=== PATIENT | male | born 1980 | race Caucasian/White ===

== ENCOUNTER 2017-09-17 09:24 | Emergency (ER) | payer OTHER ==
[2017-09-17] MEDS ORDERED: LEVALBUTEROL 1.25 MG/3 ML NEB ONE (10:13)
[2017-09-17] MEDS ORDERED: METHYLPREDNISOLONE 125 MG INJ ONE (10:13)
[2017-09-17 10:31] LABS: Absolute Lymphocytes (CBC) 1.2 K/uL (0.7-4.9); Absolute Monocytes 0.7 K/uL (0.1-1.3); Absolute Neutrophil 6.7 K/uL (1.8-8.0); Basophils % 0.8 % (0-1.3); Eosinophils % 12.4 % (0-4.4); Hematocrit 42.9 % (39.6-49.0); Lymphocytes % 11.8 % (15.3-44.8); MCH 29.3 pg (27.0-35.0); MCV 87.4 fL (80-100); MPV 8.6 fL (7.6-11.3); Monocytes % 7.4 % (3.3-12.3); RBC Red Blood Cell Count 4.91 M/uL (4.33-5.43)
[2017-09-17 10:44] LABS: BUN Blood Urea Nitrogen 12 mg/dL (7-18); Bicarbonate 25 mmol/L (21-32); Glucose Level 78 mg/dL (74-106); Potassium 3.8 mmol/L (3.5-5.1); Sodium Level 140 mmol/L (136-145)
[2017-09-17 11:12] LABS: Urine Blood NEGATIVE (NEG); Urine Glucose NEGATIVE (NEG); Urine Protein NEGATIVE (NEG); Urine Specific Gravity 1.015 (1.005-1.030); Urine pH 6.5 (5.0-7.0)
--- NOTE | 2017-09-17 11:52 | RAD REPORT ---
EXAM DESCRIPTION: RAD - Chest Single View - 09/17/2017 10:13 am CLINICAL HISTORY: Cough COMPARISON: August 28 TECHNIQUE: AP portable chest image was obtained 1010 hours . FINDINGS: No mass, consolidation or acute failure. Interstitial markings are prominent but improved from the comparison. Hilar regions and vasculature is stable. Heart and vasculature are normal. No me asurable pleural effusion and no pneumothorax. No gross bony abnormality seen. No acute aortic findin gs suspected. IMPRESSION: No acute cardiopulmonary process. Lung markings have decreased in prominence since August 28.
--- NOTE | 2017-09-17 12:07 | ER ---
Nurse's Notes [facility] Name: Qamar Mayorga Age: 37 yrs Sex: Male : 1980 Arrival Date: 09/17/2017 Time: 09:26 Bed 7 Private MD: Diagnosis: Asthma Presentation: 09/17 09:35 Presenting complaint: Patient states: fatigue and constipation since yesterday. Pt ss reports last BM was yesterday and was, "soupy". Transition of care: patient was not received from another setting of care. Onset of symptoms was September 16, 2017. Risk Assessment: Do you want to hurt yourself or someone else? Patient reports no desire to harm self or others. Initial Sepsis Screen: Does the patient meet any 2 criteria? No. Patient's initial sepsis screen is negative. Does the patient have a suspected source of infection? No. Patient's initial sepsis screen is negative. Care prior to arrival: None. 09:35 Method Of Arrival: Ambulatory ss 09:35 Acuity: JAMSHID 3 ss Stroke Activation: Symptom onset > 6 hours Physician: Stroke Attending; Name: ; Notified At: ; Arrived At: Physician: Chief Stroke Resident; Name: ; Notified At: ; Arrived At: Physician: Stroke Resident; Name: ; Notified At: ; Arrived At: Physician: ED Attending; Name: ; Notified At: ; Arrived At: Physician: ED Resident; Name: ; Notified At: ; Arrived At: Historical: - Allergies: 09:36 Dilantin; ss - PMHx: 09:36 Asthma; hyperthyroidism; seasonal allergies; Pneumonia; ss - Immunization history:: Adult Immunizations up to date. - Social history:: Smoking status: Patient/guardian denies using tobacco. - Ebola Screening: : Patient denies exposure to infectious person Patient denies travel to an Ebola-affected area in the 21 days before illness onset. Screenin:50 Abuse screen: Denies threats or abuse. Denies injuries from another. Nutritional jl7 screening: No deficits noted. Tuberculosis screening: No symptoms or risk factors identified. Fall Risk IV access (20 points). Total Mcgee Fall Scale indicates No Risk (0-24 pts). Assessment: 09:50 General: Appears in no apparent distress. uncomfortable, Behavior is calm, cooperative, jl7 appropriate for age. Pain: Denies pain. Neuro: Level of Consciousness is awake, alert, obeys commands, Oriented to person, place, time. Cardiovascular: Heart tones present Patient's skin is warm and dry. Respiratory: Airway is patent Respiratory effort is even, unlabored, Respiratory pattern is regular, symmetrical, Breath sounds with rhonchi bilaterally. Breath sounds with wheezes bilaterally. GI: No signs and/or symptoms were reported involving the gastrointestinal system. : No signs and/or symptoms were reported regarding the genitourinary system. EENT: No signs and/or symptoms were reported regarding the EENT system. Derm: Skin is pink, warm \\T\\ dry. Musculoskeletal: No signs and/or symptoms reported regarding the musculoskeletal system. 10:50 Reassessment: No changes from previously documented assessment. Patient and/or family jl7 updated on plan of care and expected duration. Pain level reassessed. Patient is alert, oriented x 3, equal unlabored respirations, skin warm/dry/pink. 11:47 Reassessment: Patient and/or family updated on plan of care and expected duration. Pain jl7 level reassessed. Patient is alert, oriented x 3, equal unlabored respirations, skin warm/dry/pink. Vital Signs: 09:36 BP 139 / 89; Pulse 68; Resp 16; Temp 98.7(TE); Pulse Ox 95% on R/A; Weight 83.01 kg; ss Height 5 ft. 9 in. (175.26 cm); Pain 0/10; 10:06 BP 125 / 85; Pulse 64; Resp 16; Temp 99.2(O); Pulse Ox 98% on R/A; jl7 11:00 BP 124 / 72; Pulse 65; Resp 16 S; Pulse Ox 100% on R/A; jl7 11:47 BP 122 / 73; Pulse 62; Resp 16; Temp 98.5(O); Pulse Ox 100% on R/A; jl7 09:36 Body Mass Index 27.02 (83.01 kg, 175.26 cm) ED Course: 09:26 Patient arrived in ED. as 09:36 Triage completed. ss 09:37 Arm band placed on right wrist. ss 09:43 Franck Gruber MD is Attending Physician. kdr 09:45 Shawnee John RN is Primary Nurse. ph 09:50 Patient has correct armband on for positive identification. Placed in gown. Bed in low jl7 position. Call light in reach. Side rails up X 1. surgery tech on. Pulse ox on. NIBP on. Warm blanket given. 09:55 Missed attempt(s): 20 gauge in right forearm. Bleeding controlled, band aid applied, jl7 catheter tip intact. 10:00 Inserted saline lock: 20 gauge in left forearm, using aseptic technique. Blood jl7 collected. 10:00 Initial lab(s) drawn, by ma, sent to lab. jl7 10:06 Parker Holman, RN is Primary Nurse. jl7 10:13 CXR XRAY In Process Unspecified. EDMS 12:34 No provider procedures requiring assistance completed. IV discontinued, intact, ss bleeding controlled, No redness/swelling at site. Pressure dressing applied. Administered Medications: 10:15 Drug: Xopenex (3) 1.25 mg Route: Inhalation; jl7 10:45 Follow up: Response: No adverse reaction jl7 10:15 Drug: SOLU-Medrol 125 mg Route: IVP; Site: left forearm; jl7 10:45 Follow up: Response: No adverse reaction; Marked relief of symptoms jl7 Outcome: 12:06 Discharge ordered by . kdr 12:34 Discharged to home ambulatory. ss 12:34 Condition: improved 12:34 Discharge instructions given to patient, Instructed on discharge instructions, follow up and referral plans. medication usage, Demonstrated understanding of instructions, follow-up care, medications. 12:35 Patient left the ED. ss Signatures: Dispatcher [employer] EDID Franck Gruber MD MD kdr Martinez, Amelia as Smirch, Shelby, PJ RN Shawnee John RN RN Parker Holman, PJ RN jl7
--- NOTE | 2017-09-17 12:07 | EDPHYS ---
Physician Documentation [facility] Name: Qamar Mayorga Age: 37 yrs Sex: Male : 1980 Arrival Date: 09/17/2017 Time: 09:26 Bed 7 Private MD: ED Physician Franck Gruber HPI: 09/17 10:29 This 37 yrs old Male presents to ER via Ambulatory with complaints of kdr Weakness, Doesn't Feel Right. 10:29 The patient has not felt well since yesterday and this morning when he awoke, he flet kdr generally weak. He had loose stool yesterday but today feels constipated. He has not been using his nebulizer on a regular basis - the last time was a few days ago. Denies any other focal c/o in the ED at this time. No apparent acute illness or injury. VS are noted be normal.. Onset: The symptoms/episode began/occurred gradually, yesterday. Severity of symptoms: At their worst the symptoms were mild in the emergency department the symptoms are unchanged. The patient has experienced similar episodes in the past, multiple times. The patient has not recently seen a physician. Historical: - Allergies: 09:36 Dilantin; ss - PMHx: 09:36 Asthma; hyperthyroidism; seasonal allergies; Pneumonia; ss - Immunization history:: Adult Immunizations up to date. - Social history:: Smoking status: Patient/guardian denies using tobacco. - Ebola Screening: : Patient denies exposure to infectious person Patient denies travel to an Ebola-affected area in the 21 days before illness onset. ROS: 10:29 Constitutional: Negative for fever, chills, and weight loss, Eyes: Negative for injury, kdr pain, redness, and discharge, ENT: Negative for injury, pain, and discharge, Neck: Negative for injury, pain, and swelling, Cardiovascular: Negative for chest pain, palpitations, and edema, Abdomen/GI: Negative for abdominal pain, nausea, vomiting, diarrhea, and constipation, Back: Negative for injury and pain, : Negative for injury, bleeding, discharge, and swelling, MS/Extremity: Negative for injury and deformity, Skin: Negative for injury, rash, and discoloration, Neuro: Negative for headache, weakness, numbness, tingling, and seizure activity. 10:29 Respiratory: Positive for shortness of breath, wheezing, inspiratory, expiratory. Exam: 10:29 Constitutional: This is a well developed, well nourished patient who is awake, alert, kdr and in no acute distress. Head/Face: Normocephalic, atraumatic. Eyes: Pupils equal round and reactive to light, extra-ocular motions intact. Lids and lashes normal. Conjunctiva and sclera are non-icteric and not injected. Cornea within normal limits. Periorbital areas with no swelling, redness, or edema. Neck: Trachea midline, no thyromegaly or masses palpated, and no cervical lymphadenopathy. Supple, full range of motion without nuchal rigidity, or vertebral point tenderness. No Meningismus. Chest/axilla: Normal chest wall appearance and motion. Nontender with no deformity. No lesions are appreciated. Cardiovascular: Regular rate and rhythm with a normal S1 and S2. No gallops, murmurs, or rubs. Normal PMI, no JVD. No pulse deficits. Abdomen/GI: Soft, non-tender, with normal bowel sounds. No distension or tympany. No guarding or rebound. No evidence of tenderness throughout. Back: No spinal tenderness. No costovertebral tenderness. Full range of motion. Skin: Warm, dry with normal turgor. Normal color with no rashes, no lesions, and no evidence of cellulitis. MS/ Extremity: Pulses equal, no cyanosis. Neurovascular intact. Full, normal range of motion. Neuro: Awake and alert, GCS 15, oriented to person, place, time, and situation. Cranial nerves II-XII grossly intact. Motor strength 5/5 in all extremities. Sensory grossly intact. Cerebellar exam normal. Normal gait. Psych: Awake, alert, with orientation to person, place and time. Behavior, mood, and affect are within normal limits. 10:29 Respiratory: the patient does not display signs of respiratory distress, Respirations: normal, Breath sounds: rales, bronchial sounds, wheezing: that is mild, that is moderate, is heard diffusely, is heard in the left posterior upper lobe, right posterior upper lobe, left posterior lower lobe, right posterior middle lobe and right posterior lower lobe. Vital Signs: 09:36 BP 139 / 89; Pulse 68; Resp 16; Temp 98.7(TE); Pulse Ox 95% on R/A; Weight 83.01 kg; ss Height 5 ft. 9 in. (175.26 cm); Pain 0/10; 10:06 BP 125 / 85; Pulse 64; Resp 16; Temp 99.2(O); Pulse Ox 98% on R/A; jl7 11:00 BP 124 / 72; Pulse 65; Resp 16 S; Pulse Ox 100% on R/A; jl7 11:47 BP 122 / 73; Pulse 62; Resp 16; Temp 98.5(O); Pulse Ox 100% on R/A; jl7 09:36 Body Mass Index 27.02 (83.01 kg, 175.26 cm) ss MDM: 12:06 Patient medically screened. kdr 13:50 Data reviewed: vital signs, nurses notes. kdr 09/17 09:49 Order name: CBC with Diff; Complete Time: 11:07 kdr 09/17 09:49 Order name: Chem 7; Complete Time: 11:07 kdr 09/17 09:49 Order name: Blood Culture Adult (2) kdr 09/17 09:49 Order name: CXR XRAY; Complete Time: 12:05 kdr 09/17 11:06 Order name: Urine Dipstick--Ancillary (enter results) eb 09/17 11:07 Order name: Urine Dipstick-Ancillary; Complete Time: 11:30 EDMS 09/17 09:49 Order name: Urine Dipstick-Ancillary (obtain specimen); Complete Time: 12:00 kdr Administered Medications: 10:15 Drug: Xopenex (3) 1.25 mg Route: Inhalation; 7 10:45 Follow up: Response: No adverse reaction jl7 10:15 Drug: SOLU-Medrol 125 mg Route: IVP; Site: left forearm; jl7 10:45 Follow up: Response: No adverse reaction; Marked relief of symptoms jl7 Disposition: 09/17/17 12:06 Discharged to Home. Impression: Asthma. - Condition is Stable. - Discharge Instructions: Asthma, Adult, Mped-py-Ckue, Asthma Attack Prevention, Adult. - Prescriptions for Xopenex 1.25 mg/3 mL Inhalation Solution for Nebulization - inhale 1 unit by NEBULIZATION route every 8 hours As needed; 1 box. Medrol (Cristino) 4 mg Oral Tablets, Dose Pack - take 1 tablet by ORAL route as directed - follow package instructions; 1 packet. Cipro 500 mg Oral Tablet - take 1 tablet by ORAL route every 12 hours for 10 days; 20 tablet. - Medication Reconciliation Form, Thank You Letter, Antibiotic Education form. - Follow up: Private Physician; When: 2 - 3 days; Reason: If symptoms return, Further diagnostic work-up, Recheck today's complaints, Continuance of care, Re-evaluation by your physician. - Problem is new. - Symptoms have improved. Signatures: Dispatcher [employer] EDND Franck Gruber MD MD kdr Deloris Almaguer RN RN ss Parker Holman RN RN jl7 Corrections: (The following items were deleted from the chart) 12:35 12:06 09/17/2017 12:06 Discharged to Home. Impression: Asthma. Condition is Stable. ss Forms are Medication Reconciliation Form, Thank You Letter, Antibiotic Education, Prescription Opioid Use. Follow up: Private Physician; When: 2 - 3 days; Reason: If symptoms return, Further diagnostic work-up, Recheck today's complaints, Continuance of care, Re-evaluation by your physician. Problem is new. Symptoms have improved. kdr
[2017-09-17 12:50] VITALS: O2SAT 100
[2017-09-17 12:52] VITALS: BP 122/73; TEMP 98.5
== END 2017-09-17 12:35 | disposition home or self-care (01) ==
LOC: ER 09:24
DX: J45.909 Unspecified asthma, uncomplicated (principal); E03.9 Hypothyroidism, unspecified; Z88.8 Allergy status to other drugs, medicaments and biological substances
CPT/HCPCS: 36415; 71045; 80048; 81003; 85025; 87040; 96374; 99285; J2930

== ENCOUNTER 2017-10-24 03:01 | Emergency (ER) | payer OTHER ==
[2017-10-24] MEDS ORDERED: ALBUTEROL 2.5 MG/3 ML NEB SOL ONE (03:36)
[2017-10-24] MEDS ORDERED: METHYLPREDNISOLONE 125 MG INJ ONE (03:36)
[2017-10-24] MEDS ORDERED: IPRATROPIUM BROM 0.5MG/2.5ML ONE (03:36)
[2017-10-24 03:51] LABS: Absolute Lymphocytes (CBC) 1.7 K/uL (0.7-4.9); Absolute Monocytes 1.3 K/uL (0.1-1.3); Absolute Neutrophil 11.9 K/uL (1.8-8.0); Basophils % 0.7 % (0-1.3); Eosinophils % 9.4 % (0-4.4); Lymphocytes % 10.5 % (15.3-44.8); MCH 29.5 pg (27.0-35.0); MCV 86.1 fL (80-100); MPV 8.3 fL (7.6-11.3); Monocytes % 7.8 % (3.3-12.3); RBC Red Blood Cell Count 5.23 M/uL (4.33-5.43)
[2017-10-24 04:03] LABS: Potassium 3.8 mmol/L (3.5-5.1)
--- NOTE | 2017-10-24 05:10 | ER ---
Nurse's Notes [facility] Name: Qamar Mayorga Age: 37 yrs Sex: Male : 1980 Arrival Date: 10/24/2017 Time: 03:03 Bed 15 Private MD: Diagnosis: Sinusitis Presentation: 10/24 03:14 Presenting complaint: Patient states: he has been "clogged up" since Monday indicating bb his face and head, and it seems to be working its way down also has irritated throat and non-productive cough. Transition of care: patient was not received from another setting of care. Onset of symptoms was October 20, 2017. Risk Assessment: Do you want to hurt yourself or someone else? Patient reports no desire to harm self or others. Initial Sepsis Screen: Does the patient meet any 2 criteria? No. Patient's initial sepsis screen is negative. Does the patient have a suspected source of infection? No. Patient's initial sepsis screen is negative. Care prior to arrival: None. 03:14 Method Of Arrival: Ambulatory bb 03:14 Acuity: JAMSHID 4 bb Historical: - Allergies: 03:16 Dilantin; bb - Home Meds: 03:16 levothyroxine oral [Active]; bb 03:29 albuterol sulfate 0.63 mg/3 mL Inhl nebu [Active]; Flonase 50 mcg/actuation Nasal spsn ao 1 spray 2 times per day [Active]; Zyrtec 10 mg Oral chew 1 tab once daily [Active]; - PMHx: 03:16 Asthma; hyperthyroidism; Pneumonia; seasonal allergies; bb - PSHx: 03:16 Thyroidectomy; bb - Immunization history:: Adult Immunizations up to date. - Social history:: Smoking status: Patient/guardian denies using tobacco, Patient/guardian denies using alcohol, street drugs. - Ebola Screening: : No symptoms or risks identified at this time. Screenin:26 Abuse screen: Denies threats or abuse. Denies injuries from another. Nutritional ao screening: No deficits noted. Tuberculosis screening: No symptoms or risk factors identified. Fall Risk None identified. Assessment: 03:20 General: Appears in no apparent distress. comfortable, Behavior is cooperative, ao inappropriate for age. Pain: Complains of pain in irritated chest. Neuro: Level of Consciousness is awake, alert, obeys commands, Oriented to person, place, time, situation, Appropriate for age Moves all extremities. Full function Speech is normal, Facial symmetry appears normal. Cardiovascular: Capillary refill < 3 seconds Patient's skin is warm and dry. Respiratory: Airway is patent Respiratory effort is even, unlabored, Respiratory pattern is regular, symmetrical, Breath sounds with wheezes bilaterally. GI: Abdomen is non-distended. : No signs and/or symptoms were reported regarding the genitourinary system. EENT: No signs and/or symptoms were reported regarding the EENT system. Derm: Skin is intact, Skin temperature is warm. Musculoskeletal: Circulation, motion, and sensation intact. Range of motion: intact in all extremities. 04:13 Reassessment: Patient appears in no apparent distress at this time. Patient and/or ao family updated on plan of care and expected duration. Pain level reassessed. Patient is alert, oriented x 3, equal unlabored respirations, skin warm/dry/pink. Vital Signs: 03:16 BP 129 / 91; Pulse 77; Resp 16 S; Temp 99(O); Pulse Ox 98% on R/A; Weight 80.29 kg (R); bb Height 5 ft. 9 in. (175.26 cm) (R); Pain 0/10; 04:13 BP 116 / 57; Pulse 79; Resp 16; Pulse Ox 100% on R/A; ao 03:16 Body Mass Index 26.14 (80.29 kg, 175.26 cm) bb ED Course: 03:03 Patient arrived in ED. es 03:06 Noble Fields RN is Primary Nurse. ao 03:10 Rene Carcamo MD is Attending Physician. pkl 03:15 Triage completed. bb 03:16 Arm band placed on Patient placed in an exam room, on a stretcher, on pulse oximetry. bb 03:27 Patient has correct armband on for positive identification. Pulse ox on. NIBP on. ao 03:43 X-ray completed. Portable x-ray completed in exam room. Patient tolerated procedure kw well. 03:44 XRAY CXR (1 view) In Process Unspecified. EDMS 05:36 No provider procedures requiring assistance completed. Patient did not have IV access ao during this emergency room visit. Administered Medications: 03:45 Drug: SOLU-Medrol 125 mg Route: IM; Site: left deltoid; ao 05:00 Follow up: Response: No adverse reaction ao 03:46 Drug: Albuterol - atroVENT (3:1) (2.5 mg - 0.5 mg) 3 ml Route: Nebulizer; ao 05:00 Follow up: Response: No adverse reaction ao Outcome: 05:09 Discharge ordered by . divya 05:36 Discharged to home ambulatory. ao 05:36 Condition: stable 05:36 Discharge instructions given to patient, Instructed on discharge instructions, follow up and referral plans. Demonstrated understanding of instructions, follow-up care, medications, Prescriptions given X 2. 05:37 Patient left the ED. ao Signatures: Dispatcher [employer] Rene Mora MD MD pkl Salyer, Edna es Ballard, Brenda, RN RN Myah Garvey Alex, RN RN ao
--- NOTE | 2017-10-24 05:10 | EDPHYS ---
Physician Documentation [facility] Name: Qamar Mayorga Age: 37 yrs Sex: Male : 1980 Arrival Date: 10/24/2017 Time: 03:03 Bed 15 Private MD: ED Physician Rene Carcamo HPI: 10/24 03:28 This 37 yrs old Male presents to ER via Ambulatory with complaints of pkl Congestion. 03:28 The patient or guardian reports cough, with no sputum, sinus congestion. Onset: The pkl symptoms/episode began/occurred 3 day(s) ago. Historical: - Allergies: 03:16 Dilantin; bb - Home Meds: 03:16 levothyroxine oral [Active]; bb 03:29 albuterol sulfate 0.63 mg/3 mL Inhl nebu [Active]; Flonase 50 mcg/actuation Nasal spsn ao 1 spray 2 times per day [Active]; Zyrtec 10 mg Oral chew 1 tab once daily [Active]; - PMHx: 03:16 Asthma; hyperthyroidism; Pneumonia; seasonal allergies; bb - PSHx: 03:16 Thyroidectomy; bb - Immunization history:: Adult Immunizations up to date. - Social history:: Smoking status: Patient/guardian denies using tobacco, Patient/guardian denies using alcohol, street drugs. - Ebola Screening: : No symptoms or risks identified at this time. ROS: 03:28 Eyes: Negative for injury, pain, redness, and discharge, ENT: Negative for injury, pkl pain, and discharge, Neck: Negative for injury, pain, and swelling, Cardiovascular: Negative for chest pain, palpitations, and edema. 03:28 Respiratory: Positive for cough, with no reported sputum. 03:28 Abdomen/GI: Negative for abdominal pain, nausea, vomiting, and diarrhea. 03:28 Back: Negative for acute changes. 03:28 : Negative for urinary symptoms. 03:28 MS/extremity: Negative for acute changes. 03:28 Skin: Negative for rash. 03:28 Neuro: Negative for altered mental status. Exam: 03:28 Head/Face: Normocephalic, atraumatic. Eyes: Pupils equal round and reactive to light, pkl extra-ocular motions intact. Lids and lashes normal. Conjunctiva and sclera are non-icteric and not injected. Cornea within normal limits. Periorbital areas with no swelling, redness, or edema. ENT: Nares patent. No nasal discharge, no septal abnormalities noted. Tympanic membranes are normal and external auditory canals are clear. Oropharynx with no redness, swelling, or masses, exudates, or evidence of obstruction, uvula midline. Mucous membranes moist. Neck: Trachea midline, no thyromegaly or masses palpated, and no cervical lymphadenopathy. Supple, full range of motion without nuchal rigidity, or vertebral point tenderness. No Meningismus. Chest/axilla: Normal chest wall appearance and motion. Nontender with no deformity. No lesions are appreciated. Cardiovascular: Regular rate and rhythm with a normal S1 and S2. No gallops, murmurs, or rubs. Normal PMI, no JVD. No pulse deficits. Respiratory: Lungs have equal breath sounds bilaterally, clear to auscultation and percussion. No rales, rhonchi or wheezes noted. No increased work of breathing, no retractions or nasal flaring. Abdomen/GI: Soft, non-tender, with normal bowel sounds. No distension or tympany. No guarding or rebound. No evidence of tenderness throughout. Back: No spinal tenderness. No costovertebral tenderness. Full range of motion. Skin: Warm, dry with normal turgor. Normal color with no rashes, no lesions, and no evidence of cellulitis. MS/ Extremity: Pulses equal, no cyanosis. Neurovascular intact. Full, normal range of motion. Neuro: Awake and alert, GCS 15, oriented to person, place, time, and situation. Cranial nerves II-XII grossly intact. Motor strength 5/5 in all extremities. Sensory grossly intact. Cerebellar exam normal. Normal gait. Vital Signs: 03:16 BP 129 / 91; Pulse 77; Resp 16 S; Temp 99(O); Pulse Ox 98% on R/A; Weight 80.29 kg (R); bb Height 5 ft. 9 in. (175.26 cm) (R); Pain 0/10; 04:13 BP 116 / 57; Pulse 79; Resp 16; Pulse Ox 100% on R/A; ao 03:16 Body Mass Index 26.14 (80.29 kg, 175.26 cm) bb MDM: 03:10 Patient medically screened. pkl 05:07 Data reviewed: vital signs, nurses notes, lab test result(s), radiologic studies, plain pkl films. 10/24 03:26 Order name: CBC with Diff; Complete Time: 03:57 pkl 10/24 03:26 Order name: Chem 7; Complete Time: 05:04 pkl 10/24 03:26 Order name: Strep; Complete Time: 05:04 pkl 10/24 03:26 Order name: XRAY CXR (1 view) pkl 10/24 04:03 Order name: Throat Culture EDMS Administered Medications: 03:45 Drug: SOLU-Medrol 125 mg Route: IM; Site: left deltoid; ao 05:00 Follow up: Response: No adverse reaction ao 03:46 Drug: Albuterol - atroVENT (3:1) (2.5 mg - 0.5 mg) 3 ml Route: Nebulizer; ao 05:00 Follow up: Response: No adverse reaction ao Disposition: 10/24/17 05:09 Discharged to Home. Impression: Sinusitis. - Condition is Stable. - Prescriptions for Augmentin 875- 125 mg Oral Tablet - take 1 tablet by ORAL route every 12 hours for 10 days; 20 tablet. - Medication Reconciliation Form, Thank You Letter, Antibiotic Education, Prescription Opioid Use form. - Follow up: Private Physician; When: 2 - 3 days; Reason: Re-evaluation by your physician. - Problem is new. - Symptoms have improved. Signatures: Dispatcher [employer] EDNM Rene Carcamo MD MD pkl Ballard, Brenda, RN RN Noble Booth RN RN ao Corrections: (The following items were deleted from the chart) 05:37 05:09 10/24/2017 05:09 Discharged to Home. Impression: Sinusitis. Condition is Stable. ao Forms are Medication Reconciliation Form, Thank You Letter, Antibiotic Education, Prescription Opioid Use. Follow up: Private Physician; When: 2 - 3 days; Reason: Re-evaluation by your physician. Problem is new. Symptoms have improved. pkl
--- NOTE | 2017-10-24 08:34 | RAD REPORT ---
EXAM DESCRIPTION: RAD - Chest Single View - 10/24/2017 3:43 am CLINICAL HISTORY: COUGH Chest pain. COMPARISON: Chest Single View dated 09/17/2017; Chest Pa And Lat (2 Views) dated 08/28/2017; Chest Pa A nd Lat (2 Views) dated 06/16/2017; Chest Pa And Lat (2 Views) dated 02/27/2017 FINDINGS: Portable technique limits examination quality. The lungs are grossly clear. The heart is normal in size. No displaced fractures. IMPRESSION: No acute intrathoracic process suspected.
[2017-10-24 10:35] VITALS: TEMP 99
[2017-10-24 10:36] VITALS: BP 116/57; O2SAT 100
== END 2017-10-24 05:37 | disposition home or self-care (01) ==
LOC: ER 03:01
DX: J32.9 Chronic sinusitis, unspecified (principal); J45.909 Unspecified asthma, uncomplicated; J30.2 Other seasonal allergic rhinitis; Z88.8 Allergy status to other drugs, medicaments and biological substances
CPT/HCPCS: 36415; 71045; 80048; 85025; 87070; 87081; 94640; 96372; 99284; J2930

== ENCOUNTER 2018-01-18 06:09 | Emergency (ER) | payer OTHER ==
[2018-01-18] MEDS ORDERED: IPRATROPIUM BROM 0.5MG/2.5ML ONE (06:55)
[2018-01-18] MEDS ORDERED: ALBUTEROL 2.5 MG/3 ML NEB SOL ONE (06:55)
[2018-01-18] MEDS ORDERED: predniSONE 20 MG TAB ONE (06:55)
--- NOTE | 2018-01-18 08:05 | ER ---
Nurse's Notes [facility] Name: Qamar Mayorga Age: 38 yrs Sex: Male : 1980 Arrival Date: 01/18/2018 Time: 06:10 Bed 6 Private MD: Diagnosis: Unspecified asthma with (acute) exacerbation Presentation: 01/18 06:28 Presenting complaint: Patient states: "For about a week now I have been having this jd3 pressure at the bottom of my rib cage. and since lunch yesterday I have been feeling just really tired even after rest.". Transition of care: patient was not received from another setting of care. Onset of symptoms was January 17, 2018. Risk Assessment: Do you want to hurt yourself or someone else? Patient reports no desire to harm self or others. Initial Sepsis Screen: Does the patient meet any 2 criteria? No. Patient's initial sepsis screen is negative. Does the patient have a suspected source of infection? No. Patient's initial sepsis screen is negative. Care prior to arrival: None. 06:28 Method Of Arrival: Ambulatory jd3 06:28 Acuity: JAMSHID 4 jd3 Historical: - Allergies: 06:31 Dilantin; jd3 - Home Meds: 06:31 levothyroxine oral [Active]; albuterol sulfate 0.63 mg/3 mL Inhl nebu [Active]; Flonase jd3 50 mcg/actuation Nasal spsn 1 spray 2 times per day [Active]; Zyrtec 10 mg Oral chew 1 tab once daily [Active]; - PMHx: 06:31 Asthma; Pneumonia; seasonal allergies; hyperthyroidism; jd3 - PSHx: 06:31 Thyroidectomy; jd3 - Immunization history:: Adult Immunizations unknown. - Social history:: Smoking status: Patient/guardian denies using tobacco. - Ebola Screening: : Patient negative for fever greater than or equal to 101.5 degrees Fahrenheit, and additional compatible Ebola Virus Disease symptoms. Screenin:35 Abuse screen: Denies threats or abuse. Nutritional screening: No deficits noted. jd3 Tuberculosis screening: No symptoms or risk factors identified. Fall Risk Ambulatory Aid- None/Bed Rest/Nurse Assist (0 pts). Gait- Normal/Bed Rest/Wheelchair (0 pts) Mental Status- Oriented to own ability (0 pts). Total Mcgee Fall Scale indicates No Risk (0-24 pts). Assessment: 06:32 General: Appears in no apparent distress. uncomfortable, Behavior is calm, cooperative, jd3 appropriate for age, Reports fatigue for. Pain: Complains of pain in diaphragm Quality of pain is described as pressure. Neuro: Level of Consciousness is awake, alert, obeys commands, Oriented to person, place, time, situation. Cardiovascular: Denies chest pain, Capillary refill < 3 seconds Patient's skin is warm and dry. Respiratory: Airway is patent Respiratory effort is even, unlabored, Respiratory pattern is regular, symmetrical, Denies shortness of breath. GI: No signs and/or symptoms were reported involving the gastrointestinal system. : No signs and/or symptoms were reported regarding the genitourinary system. EENT: No signs and/or symptoms were reported regarding the EENT system. Derm: Skin is intact, Skin is dry, Skin is normal, Skin temperature is warm. Musculoskeletal: Circulation, motion, and sensation intact. Range of motion: intact in all extremities. 07:00 Reassessment: RECD REPORT FROM HOLLIS OLIVA. .38YO WM P/W FATIGUE, H/O RAD. NEB IN bp PROCESS, SWABS PENDING. VS STABLE AT THIS TIME. 07:40 Reassessment: Pt to x-ray . aa5 07:58 Reassessment: PT RETURNED FROM XRAY. DISPO PENDING. bp 08:10 Reassessment: PT D/C HOME AMBULATORY, DX WITH ASTHMA EXACERBATION. bp Vital Signs: 06:31 BP 134 / 99; Pulse 73; Resp 18 S; Temp 98.0(O); Pulse Ox 98% on R/A; Weight 79.83 kg jd3 (R); Height 5 ft. 7 in. (170.18 cm) (R); Pain 2/10; 07:00 BP 114 / 70; Pulse 69; Resp 16; Pulse Ox 100% ; bp 07:58 BP 136 / 77; Pulse 84; Resp 16; Pulse Ox 98% ; bp 06:31 Body Mass Index 27.57 (79.83 kg, 170.18 cm) jd3 ED Course: 06:10 Patient arrived in ED. ds1 06:28 Brennen Ponce RN is Primary Nurse. jd3 06:29 Triage completed. jd3 06:32 Arm band placed on. jd3 06:35 Patient has correct armband on for positive identification. Bed in low position. Call j light in reach. Side rails up X 1. 06:38 Sam Velazquez PA is PHCP. cp 06:39 Sebas Escobedo MD is Attending Physician. cp 06:55 Strep Sent. jd3 06:55 Influenza Screen (a \\T\\ B) Sent. jd3 07:03 Primary Nurse role handed off by Brennen Ponce RN bp 07:03 Mike Calero, PJ is Primary Nurse. bp 07:49 X-ray completed. Patient tolerated procedure well. Patient moved back from radiology. jb2 07:50 XRAY Chest Pa And Lat (2 Views) In Process Unspecified. EDMS 07:58 Franck Gruber MD is Attending Physician. cp 08:11 No provider procedures requiring assistance completed. Patient did not have IV access bp during this emergency room visit. Administered Medications: 06:54 Drug: Albuterol - atroVENT (3:1) (2.5 mg - 0.5 mg) 3 ml Route: Nebulizer; jd3 08:14 Follow up: Response: No adverse reaction bp 06:55 Drug: predniSONE 60 mg Route: PO; jd3 08:14 Follow up: Response: No adverse reaction bp Outcome: 08:04 Discharge ordered by . cp 08:11 Discharged to home ambulatory. bp 08:11 Condition: stable 08:11 Discharge instructions given to patient, Instructed on discharge instructions, follow up and referral plans. medication usage, Demonstrated understanding of instructions, follow-up care, medications, Prescriptions given X 3. 08:13 Patient left the ED. bp Signatures: Dispatcher [employer] EDNV Baldomero Rios jb2 [employer]ma powers ds1 Rowan Lamas, RN RN aa5 Sam Velazquez PA PA cp Brennen Ponce, PJ RN Mike Kaur RN RN bp
--- NOTE | 2018-01-18 08:05 | EDPHYS ---
Physician Documentation [facility] Name: Qamar Mayorga Age: 38 yrs Sex: Male : 1980 Arrival Date: 01/18/2018 Time: 06:10 Bed 6 Private MD: ED Physician Franck Gruber HPI: 01/18 06:50 This 38 yrs old Male presents to ER via Ambulatory with complaints of Doesn't cp Feel Right. 06:50 The patient or guardian reports cough, that is intermittent, lower chest pressure, cp chest tightness. 06:50 Associated signs and symptoms: Pertinent positives: sore throat, post nasal drainage, cp Pertinent negatives: diarrhea, ear ache, fever, vomiting. Severity of symptoms: in the emergency department the symptoms are unchanged despite home interventions. 06:50 Onset: The symptoms/episode began/occurred 1 week(s) ago. cp Historical: - Allergies: 06:31 Dilantin; jd3 - Home Meds: 06:31 levothyroxine oral [Active]; albuterol sulfate 0.63 mg/3 mL Inhl nebu [Active]; Flonase jd3 50 mcg/actuation Nasal spsn 1 spray 2 times per day [Active]; Zyrtec 10 mg Oral chew 1 tab once daily [Active]; - PMHx: 06:31 Asthma; Pneumonia; seasonal allergies; hyperthyroidism; jd3 - PSHx: 06:31 Thyroidectomy; jd3 - Immunization history:: Adult Immunizations unknown. - Social history:: Smoking status: Patient/guardian denies using tobacco. - Ebola Screening: : Patient negative for fever greater than or equal to 101.5 degrees Fahrenheit, and additional compatible Ebola Virus Disease symptoms. ROS: 06:55 Constitutional: Negative for body aches, chills, fever, poor PO intake. cp 06:55 Eyes: Negative for injury, pain, redness, and discharge. cp 06:55 ENT: Positive for rhinorrhea, sore throat, Negative for drainage from ear(s), ear pain, difficulty swallowing, difficulty handling secretions. 06:55 Cardiovascular: Positive for lower chest pressure, chest tightness, Negative for edema, palpitations. 06:55 Respiratory: Positive for cough, wheezing, Negative for hemoptysis. 06:55 Abdomen/GI: Negative for abdominal pain, nausea, vomiting, and diarrhea, black/tarry stool, rectal bleeding. 06:55 Skin: Negative for cellulitis, rash. 06:55 Neuro: Negative for altered mental status, headache, syncope, weakness. 06:55 All other systems are negative. Exam: 07:05 Head/Face: Normocephalic, atraumatic. cp 07:05 Constitutional: The patient appears in no acute distress, alert, awake, non-diaphoretic, non-toxic, well developed, well nourished. 07:05 Eyes: Periorbital structures: appear normal, Conjunctiva: normal, no exudate, no injection, Sclera: no appreciated abnormality, Lids and lashes: appear normal, bilaterally. 07:05 ENT: External ear(s): are unremarkable, Ear canal(s): are normal, clear, TM's: dullness, bilaterally, Nose: is normal, Mouth: Lips: moist, Oral mucosa: moist, Posterior pharynx: Airway: no evidence of obstruction, patent, Tonsils: no enlargement, no exudate, Uvula: midline, swelling, is not appreciated, erythema, that is mild, exudate, is not appreciated. 07:05 Neck: ROM/movement: is normal, is supple, without pain, no range of motions limitations, no meningismus, no nuchal rigidity, Lymph nodes: no appreciated lymphadenopathy. 07:05 Chest/axilla: Inspection: normal, Palpation: is normal, no crepitus, no tenderness. 07:05 Cardiovascular: Rate: normal, Rhythm: regular, Heart sounds: murmur, not appreciated, Edema: is not appreciated. 07:05 Respiratory: the patient does not display signs of respiratory distress, Respirations: normal, no use of accessory muscles, no retractions, no splinting, no tachypnea, labored breathing, is not present, Breath sounds: decreased breath sounds, that are mild, throughout, stridor, is not appreciated, wheezing: that is mild, is heard diffusely. 07:05 Abdomen/GI: Inspection: abdomen appears normal, Palpation: abdomen is soft and non-tender, in all quadrants. 07:05 Back: pain, is absent, ROM is normal. 07:05 Skin: cellulitis, is not appreciated, no rash present. 07:05 Neuro: Orientation: to person, place \T\ time. Mentation: is normal, Cerebellar function: cp is grossly normal, Motor: moves all fours, strength is normal, Sensation: is normal. Vital Signs: 06:31 BP 134 / 99; Pulse 73; Resp 18 S; Temp 98.0(O); Pulse Ox 98% on R/A; Weight 79.83 kg jd3 (R); Height 5 ft. 7 in. (170.18 cm) (R); Pain 2/10; 07:00 BP 114 / 70; Pulse 69; Resp 16; Pulse Ox 100% ; bp 07:58 BP 136 / 77; Pulse 84; Resp 16; Pulse Ox 98% ; bp 06:31 Body Mass Index 27.57 (79.83 kg, 170.18 cm) jd3 MDM: 06:43 Patient medically screened. 08:02 Data reviewed: vital signs, nurses notes, lab test result(s), radiologic studies, plain cp films. ED course: VSS. Symptoms markedly improved with wheezing resolved after breathing treatment. Will discharge to home for continued monitoring. 01/18 06:44 Order name: Influenza Screen (a \T\ B); Complete Time: 07:58 01/18 07:58 Interpretation: Reviewed. 01/18 06:44 Order name: Strep; Complete Time: 07:58 01/18 07:58 Interpretation: Reviewed. 01/18 07:13 Order name: XRAY Chest Pa And Lat (2 Views) 01/18 07:16 Order name: Throat Culture EDMS Administered Medications: 06:54 Drug: Albuterol - atroVENT (3:1) (2.5 mg - 0.5 mg) 3 ml Route: Nebulizer; jd3 08:14 Follow up: Response: No adverse reaction bp 06:55 Drug: predniSONE 60 mg Route: PO; jd3 08:14 Follow up: Response: No adverse reaction bp Disposition: 10:10 Co-signature as Attending Physician, Franck Gruber MD I agree with the assessment and kdr plan of care. Disposition: 01/18/18 08:04 Discharged to Home. Impression: Unspecified asthma with (acute) exacerbation. - Condition is Stable. - Discharge Instructions: Asthma, Adult. - Prescriptions for Albuterol Sulfate 2.5 mg /3 mL (0.083 %) Inhalation Solution for Nebulization - inhale 1 unit by NEBULIZATION route every 8 hours As needed; 1 box. Prednisone 20 mg Oral Tablet - take 2 tablet by ORAL route once daily for 5 days; 10 tablet. Albuterol Sulfate 90 mcg/actuation - inhale 1-2 puff by INHALATION route every 4-6 hours; 1 Inhaler. - Medication Reconciliation Form, Thank You Letter, Antibiotic Education, Prescription Opioid Use form. - Follow up: Private Physician; When: 1 - 2 days; Reason: Recheck today's complaints. - Problem is an acute exacerbation. - Symptoms have improved. Signatures: Dispatcher [employer] EDMS Franck Gruber MD MD kdr Sam Velazquez PA PA cp Davies, Jonathon RN RN jd3 Mike Calero RN RN bp Corrections: (The following items were deleted from the chart) 08:13 08:04 01/18/2018 08:04 Discharged to Home. Impression: Unspecified asthma with (acute) bp exacerbation. Condition is Stable. Forms are Medication Reconciliation Form, Thank You Letter, Antibiotic Education, Prescription Opioid Use. Follow up: Private Physician; When: 1 - 2 days; Reason: Recheck today's complaints. Problem is an acute exacerbation. Symptoms have improved. cp
[2018-01-18 08:25] VITALS: TEMP 98
[2018-01-18 08:27] VITALS: BP 136/77; O2SAT 98
--- NOTE | 2018-01-18 10:04 | RAD REPORT ---
EXAM DESCRIPTION: RAD - Chest Pa And Lat (2 Views) - 01/18/2018 7:51 am CLINICAL HISTORY: Chest pain and pressure COMPARISON: October 24 TECHNIQUE: PA and lateral views of the chest were obtained. FINDINGS: The lungs are clear. Lung markings are mildly prominent, similar to comparison. Heart siz e is normal and central vasculature is within normal limits. No pleural effusion or pneumothorax see n. No acute bony finding noted. No aortic abnormality. IMPRESSION: No acute cardiopulmonary process. No significant change from comparison.
== END 2018-01-18 08:13 | disposition home or self-care (01) ==
LOC: ER 06:09
DX: J45.901 Unspecified asthma with (acute) exacerbation (principal); J30.2 Other seasonal allergic rhinitis; Z88.8 Allergy status to other drugs, medicaments and biological substances
CPT/HCPCS: 71046; 87070; 87081; 87804; 94640; 99284; J7512

== ENCOUNTER 2018-12-30 16:06 | Emergency (ER) | payer OTHER, SELFPAY ==
[2018-12-30] MEDS ORDERED: ALBUTEROL 2.5 MG/3 ML NEB SOL ONE (16:27)
[2018-12-30] MEDS ORDERED: IPRATROPIUM BROM 0.5MG/2.5ML ONE (16:27)
[2018-12-30] MEDS ORDERED: predniSONE 20 MG TAB ONE (16:28)
--- NOTE | 2018-12-30 17:21 | EDPHYS ---
Physician Documentation [facility] Name: Qamar Mayorga Age: 38 yrs Sex: Male : 1980 Arrival Date: 12/30/2018 Time: 16:10 Bed 18 Private MD: ED Physician Claude Lopez HPI: 12/30 16:40 This 38 yrs old Male presents to ER via Ambulatory with complaints of jr8 Productive Cough. 16:40 The patient or guardian reports cough, that is intermittent, described as moderate, jr8 with productive sputum, that is green. Onset: The symptoms/episode began/occurred gradually, 2 day(s) ago. Severity of symptoms: At their worst the symptoms were mild, in the emergency department the symptoms are unchanged. Modifying factors: The symptoms are alleviated by nothing, the symptoms are aggravated by nothing. Associated signs and symptoms: The patient has no apparent associated signs or symptoms. The patient has not experienced similar symptoms in the past. The patient has been recently seen by a physician: the patient's primary care provider, with similar presenting complaints, was given a prescription for antibiotics. having worsening of cough with wheezing . Historical: - Allergies: 16:12 Dilantin; la1 - PMHx: 16:12 Asthma; hyperthyroidism; Pneumonia; seasonal allergies; la1 - Immunization history:: Adult Immunizations up to date. - Social history:: Smoking status: Patient/guardian denies using tobacco. - Ebola Screening: : No symptoms or risks identified at this time. ROS: 16:40 Eyes: Negative for injury, pain, redness, and discharge, ENT: Negative for injury, jr8 pain, and discharge, Neck: Negative for injury, pain, and swelling, Cardiovascular: Negative for chest pain, palpitations, and edema, Abdomen/GI: Negative for abdominal pain, nausea, vomiting, diarrhea, and constipation, Back: Negative for injury and pain, MS/Extremity: Negative for injury and deformity, Skin: Negative for injury, rash, and discoloration, Neuro: Negative for headache, weakness, numbness, tingling, and seizure. 16:40 Respiratory: Positive for cough, wheezing. Exam: 16:40 Eyes: Pupils equal round and reactive to light, extra-ocular motions intact. Lids and jr8 lashes normal. Conjunctiva and sclera are non-icteric and not injected. Cornea within normal limits. Periorbital areas with no swelling, redness, or edema. ENT: Nares patent. No nasal discharge, no septal abnormalities noted. Tympanic membranes are normal and external auditory canals are clear. Oropharynx with no redness, swelling, or masses, exudates, or evidence of obstruction, uvula midline. Mucous membranes moist. Neck: Trachea midline, no thyromegaly or masses palpated, and no cervical lymphadenopathy. Supple, full range of motion without nuchal rigidity, or vertebral point tenderness. No Meningismus. Cardiovascular: Regular rate and rhythm with a normal S1 and S2. No gallops, murmurs, or rubs. Normal PMI, no JVD. No pulse deficits. Abdomen/GI: Soft, non-tender, with normal bowel sounds. No distension or tympany. No guarding or rebound. No evidence of tenderness throughout. Back: No spinal tenderness. No costovertebral tenderness. Full range of motion. Skin: Warm, dry with normal turgor. Normal color with no rashes, no lesions, and no evidence of cellulitis. MS/ Extremity: Pulses equal, no cyanosis. Neurovascular intact. Full, normal range of motion. Neuro: Awake and alert, GCS 15, oriented to person, place, time, and situation. Cranial nerves II-XII grossly intact. Motor strength 5/5 in all extremities. Sensory grossly intact. Cerebellar exam normal. Normal gait. 16:40 Respiratory: the patient does not display signs of respiratory distress, Respirations: normal, symetrical, no use of accessory muscles, no grunting, no evidence of nasal flaring, no prolonged exhalations, no pursed lip breathing, no retractions, no shallow respirations, no splinting, no tachypnea, Breath sounds: wheezing: expiratory that is mild, is heard diffusely. Vital Signs: 16:12 BP 130 / 81; Pulse 93; Resp 16; Temp 98.6(TE); Pulse Ox 99% on R/A; Weight 83.91 kg; la1 Height 5 ft. 9 in. (175.26 cm); 16:12 Body Mass Index 27.32 (83.91 kg, 175.26 cm) la1 MDM: 16:18 Patient medically screened. jr8 17:19 Data reviewed: vital signs, nurses notes, radiologic studies, plain films, and as a jr8 result, I will discharge patient. Data interpreted: Pulse oximetry: on room air is 99 %. Interpretation: normal. Test interpretation: by ED physician or midlevel provider: plain radiologic studies, No consolidation noted to suggest pneumonia. No other acute findings noted on CXR . Counseling: I had a detailed discussion with the patient and/or guardian regarding: the historical points, exam findings, and any diagnostic results supporting the discharge/admit diagnosis, radiology results, the need for outpatient follow up, a family practitioner, to return to the emergency department if symptoms worsen or persist or if there are any questions or concerns that arise at home. ED course: Patient on zithromax currently and will continue it. Add prednisone and albuterol . 12/30 16:18 Order name: XRAY Chest Pa And Lat (2 Views) jr8 Administered Medications: 16:31 Drug: predniSONE 60 mg Route: PO; em 17:18 Follow up: Response: No adverse reaction em 16:31 Drug: Albuterol - atroVENT (3:1) (2.5 mg - 0.5 mg) 3 ml Route: Nebulizer; em 17:17 Follow up: Response: No adverse reaction; Marked relief of symptoms em Disposition: 12/31 16:49 Co-signature as Attending Physician, Claude Lopez MD. ma2 Disposition: 12/30/18 17:20 Discharged to Home. Impression: Acute bronchitis. - Condition is Stable. - Discharge Instructions: Acute Bronchitis, Adult. - Prescriptions for Prednisone 20 mg Oral Tablet - take 1 tablet by ORAL route once daily for 5 days; 5 tablet. Albuterol Sulfate 90 mcg/actuation - inhale 1-2 puff by INHALATION route every 4-6 hours; 1 Inhaler. - Medication Reconciliation Form, Thank You Letter, Antibiotic Education, Prescription Opioid Use form. - Follow up: Private Physician; When: 2 - 3 days; Reason: Recheck today's complaints, Continuance of care, Re-evaluation by your physician. - Problem is new. - Symptoms have improved. Signatures: Dispatcher [employer] EDYoav Desai, ENTERPRISE ANALYST ENTERPRISE ANALYST em Erich Redmond PA PA jr8 Drake Scott RN RN Claude Ovalle MD MD ma2 Corrections: (The following items were deleted from the chart) 12/30 17:30 17:20 12/30/2018 17:20 Discharged to Home. Impression: Acute bronchitis. Condition is em Stable. Forms are Medication Reconciliation Form, Thank You Letter, Antibiotic Education, Prescription Opioid Use. Follow up: Private Physician; When: 2 - 3 days; Reason: Recheck today's complaints, Continuance of care, Re-evaluation by your physician. Problem is new. Symptoms have improved. jr8
--- NOTE | 2018-12-30 17:21 | ER ---
Nurse's Notes [facility] Name: Qamar Mayorga Age: 38 yrs Sex: Male : 1980 Arrival Date: 12/30/2018 Time: 16:10 Bed 18 Private MD: Diagnosis: Acute bronchitis Presentation: 12/30 16:10 Presenting complaint: Patient states: cough and fever since Monday, have been on Z pack la1 for three days. Transition of care: patient was not received from another setting of care. Onset of symptoms was December 30, 2018. Risk Assessment: Do you want to hurt yourself or someone else? Patient reports no desire to harm self or others. Initial Sepsis Screen: Does the patient meet any 2 criteria? No. Patient's initial sepsis screen is negative. Does the patient have a suspected source of infection? Yes: Productive cough/pneumonia. Care prior to arrival: None. 16:10 Method Of Arrival: Ambulatory la1 16:10 Acuity: JAMSHID 3 la1 Historical: - Allergies: 16:12 Dilantin; la1 - PMHx: 16:12 Asthma; hyperthyroidism; Pneumonia; seasonal allergies; la1 - Immunization history:: Adult Immunizations up to date. - Social history:: Smoking status: Patient/guardian denies using tobacco. - Ebola Screening: : No symptoms or risks identified at this time. Screenin:21 Abuse screen: Denies threats or abuse. Nutritional screening: No deficits noted. em Tuberculosis screening: No symptoms or risk factors identified. Fall Risk None identified. Assessment: 16:24 General: Appears in no apparent distress. comfortable, Behavior is calm, cooperative, em Denies fever. Pain: Denies pain. Neuro: Level of Consciousness is awake, alert, obeys commands, Oriented to person, place, time, situation, Appropriate for age. Cardiovascular: Capillary refill < 3 seconds Patient's skin is warm and dry. Rhythm is regular. Respiratory: Reports shortness of breath on exertion cough that is productive, Airway is patent Respiratory effort is even, unlabored, Respiratory pattern is regular, symmetrical, Breath sounds with wheezes bilaterally. GI: Abdomen is flat. Derm: Skin is intact, is healthy with good turgor, Skin is pink, warm \T\ dry. Musculoskeletal: Capillary refill < 3 seconds, Range of motion: intact in all extremities. 16:30 General: The previous assessment is accurate, call light remains within reach.. ss 16:55 Reassessment: Patient appears in no apparent distress at this time. wheeled to CT via em wheelchair. 17:30 Reassessment: Patient appears in no apparent distress at this time. Patient and/or em family updated on plan of care and expected duration. Pain level reassessed. Patient is alert, oriented x 3, equal unlabored respirations, skin warm/dry/pink. Patient states feeling better. Patient states symptoms have improved. Vital Signs: 16:12 BP 130 / 81; Pulse 93; Resp 16; Temp 98.6(TE); Pulse Ox 99% on R/A; Weight 83.91 kg; la1 Height 5 ft. 9 in. (175.26 cm); 16:12 Body Mass Index 27.32 (83.91 kg, 175.26 cm) la1 ED Course: 16:10 Patient arrived in ED. la1 16:11 Triage completed. la1 16:11 Arm band placed on left wrist. la1 16:13 Yoav Chirinos LVN is Primary Nurse. em 16:13 Erich Redmond PA is PHCP. jr8 16:13 Claude Lopez MD is Attending Physician. jr8 16:21 Patient has correct armband on for positive identification. Call light in reach. em 16:59 XRAY Chest Pa And Lat (2 Views) In Process Unspecified. EDMS 17:29 No provider procedures requiring assistance completed. Patient did not have IV access em during this emergency room visit. Administered Medications: 16:31 Drug: predniSONE 60 mg Route: PO; em 17:18 Follow up: Response: No adverse reaction em 16:31 Drug: Albuterol - atroVENT (3:1) (2.5 mg - 0.5 mg) 3 ml Route: Nebulizer; em 17:17 Follow up: Response: No adverse reaction; Marked relief of symptoms em Outcome: 17:20 Discharge ordered by . jr8 17:29 Discharged to home ambulatory, with family. em 17:29 Condition: good 17:29 Discharge instructions given to patient, Instructed on discharge instructions, follow up and referral plans. medication usage, Demonstrated understanding of instructions, follow-up care, medications, Prescriptions given X 2. 17:30 Patient left the ED. em Signatures: Dispatcher [employer] Yoav Jenkins, UNIT COORDINATOR UNIT COORDINATOR em Deloris Almaguer, RN RN ss Erich Redmond PA PA jr8 Drake Scott RN RN la1
--- NOTE | 2018-12-30 17:42 | RAD REPORT ---
EXAM DESCRIPTION: Adri Sosa And Asher (2 Views)12/30/2018 5:03 pm CLINICAL HISTORY: Cough COMPARISON: 2018 FINDINGS: Mild nodularity within the right upper lobe is without obvious change Lungs appear clear of acute infiltrate The heart is normal size IMPRESSION: Mild nodularity right upper lobe without obvious change likely benign. Follow up chest x-ray in 3 months recommended for re-evaluation
[2018-12-30 17:43] VITALS: BP 130/81; TEMP 98.6; O2SAT 99
--- OUTSIDE RECORDS SUMMARY | 2018-12-31 07:15 | XMS REPORT | Summary of Care ---
:1980 Author Organization [facility] Address [address] [place] [address] Care Team Providers Name Role Phone Lane Kelvin Matias Primary Care Provider Reason for Visit Reason Comments Assessment Encounter Details Date Type Department Care Team Description 11/08/2018 Telephone [facility] Endocrinology- Marika Avila MD Assessment [address] Professional Office [address] Forde [phone] [address] [place] [address] Allergies Active Allergy Reactions Severity Noted Date Comments Phenytoin Sodium Extended Hives 09/01/2015 documented as of this encounter (statuses as of 11/08/2018) Medications Medication Sig Dispensed Refills Start Date End Date Status FLUTICASONE/VILANTEROL Inhale daily. 0 Active (BREO ELLIPTA INHALE) meclizine (ANTIVERT) TAKE 1 TABLET BY 0 10/11/2015 Active 25 mg tablet MOUTH EVERY 8 HOURS NEEDED budesonide-formoterol Inhale 2 Puffs 2 0 Active (SYMBICORT) 160-4.5 (two) times mcg/actuation inhaler daily. ZITHROMAX Z-GREG 250 mg Take 1 tablet by 1 Package 0 07/09/2016 Active dose pack mouth SEE-INSTRUCTIONS. Take 500 mg day 1, then 250 mg days 2 to 5. ALBUTEROL 2.5 mg /3 mL Inhale 3 mL every 40 mL 0 07/09/2016 Active (0.083 %) nebulizer 6 (six) hours as solution needed for Wheezing or Shortness of Breath. May also nebulize one extra every 6 hours. ALBUTEROL 90 Inhale 2 Puffs 8.5 g 1 07/09/2016 Active mcg/actuation inhaler every 4 (four) hours as needed for Wheezing or Shortness of Breath. oseltamivir (TAMIFLU) Take 1 capsule by 10 capsule 0 02/14/2017 Active 75 mg capsule mouth 2 (two) times daily. Levothyroxine 137 mcg Take 137 mcg by 90 capsule 3 09/26/2017 Active Cap mouth daily. 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 documented as of this encounter Last Filed Vital Signs Not on filedocumented in this encounter Plan of Treatment Date Type Specialty Care Team Description 11/09/2018 Office Visit Endocrinology Diabetes & Franck Aguilar Metabolism [address] [facility] [address] [place] [address] [place] [address] [phone] 03/20/2019 Office Visit Endocrinology Diabetes & Marika Avila MD Metabolism [facility] [place], [place] [id number] Health Maintenance Due Date Last Done Comments DTaP,Tdap,and Td Vaccines (1 - 01/05/1999 Tdap) INFLUENZA VACCINE (#1) 2018 PNEUMOCOCCAL 0-64 YEARS COMBINED Aged Out No longer eligible based on SERIES patient's age to complete this topic documented as of this encounter Results Not on filedocumented in this encounter Insurance Payer Benefit Plan / Group Subscriber ID Effective Dates Phone Address Type AETNA AETNA O [id number] 2016-Present HMO documented as of this encounter
--- OUTSIDE RECORDS SUMMARY | 2018-12-31 07:15 | XMS REPORT ---
:1980 [facility] Address [address] [place] [address] Dr. Batista [address] [place] [address] Care Team Providers Name Role Phone Unavailable Unavailable Unavailable Problems This patient has no known problems. Allergies, Adverse Reactions, Alerts This patient has no known allergies or adverse reactions. Medications This patient has no known medications.
--- OUTSIDE RECORDS SUMMARY | 2018-12-31 07:15 | XMS REPORT | Summary of Care ---
:1980 Author Organization [facility] Address [address] [place] [address] Care Team Providers Name Role Phone Kelvin Lane Matias Primary Care Provider Encounter Details Date Type Department Care Team Description 11/09/2018 Orders Only [facility] Doctor Unassigned, No [address] [facility] [place] [address] [address] [place] [address] Allergies Active Allergy Reactions Severity Noted Date Comments Phenytoin Sodium Extended Hives 09/01/2015 documented as of this encounter (statuses as of 11/09/2018) Medications Medication Sig Dispensed Refills Start Date [...] as of this encounter (statuses as of 11/09/2018) Active Problems Problem Noted Date 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 S/P thyroidectomy 06/10/2016 Hyperthyroidism 01/19/2016 documented as of this encounter (statuses as of 11/09/2018) Social History Tobacco Use Types Packs/Day Years [...] Diabetes & Franck Aguilar Metabolism [address] [facility] [address] [place] [address] [place] [address] [phone] 03/20/2019 Office Visit Endocrinology Diabetes & Marika Avila MD Metabolism [facility] [place], [place] [address] Health Maintenance Due Date Last Done Comments DTaP,Tdap,and Td Vaccines (1 - 01/05/1999 Tdap) INFLUENZA VACCINE (#1) 2018 PNEUMOCOCCAL 0-64 YEARS COMBINED Aged Out No longer eligible based on SERIES patient's age to complete this topic documented as of this encounter Procedures Procedure Name Priority Date/Time Associated Diagnosis Comments CONSENT/REFUSAL FOR Routine 11/09/2018 3:22 PM DIAGNOSIS AND TREATMENT CDT ASSIGNMENT OF BENEFITS Routine 11/09/2018 3:22 PM CDT documented in this encounter Results Not on filedocumented in this encounter Insurance Payer Benefit Plan / Group Subscriber ID Effective Dates Phone Address Type AETNA AETNA O [id number] 2016-Present HMO documented as of this encounter
== END 2018-12-30 17:30 | disposition home or self-care (01) ==
LOC: ER 16:06
DX: J20.9 Acute bronchitis, unspecified (principal); Z88.8 Allergy status to other drugs, medicaments and biological substances
CPT/HCPCS: 71046; 94640; 99284; J7512

== ENCOUNTER 2019-02-17 04:34 | Emergency (ER) | payer SELFPAY ==
--- OUTSIDE RECORDS SUMMARY | 2019-02-17 04:37 | XMS REPORT ---
:1980 [facility] Address [address] [place] [address] Dr. Batista [address] [place] [address] Care Team Providers Name Role Phone Unavailable Unavailable Unavailable Problems This patient has no known problems. Allergies, Adverse Reactions, Alerts This patient has no known allergies or adverse reactions. Medications This patient has no known medications.
[2019-02-17] MEDS ORDERED: METHYLPREDNISOLONE 125 MG INJ ONE (04:54)
[2019-02-17] MEDS ORDERED: LEVALBUTEROL 1.25 MG/3 ML NEB ONE (04:56)
[2019-02-17] MEDS ORDERED: IPRATROPIUM BROM 0.5MG/2.5ML ONE (06:23)
[2019-02-17] MEDS ORDERED: LEVALBUTEROL 0.63 MG/3 ML NEB ONE (06:23)
--- NOTE | 2019-02-17 06:26 | ER ---
Nurse's Notes [facility] Name: Qamar Mayorga Age: 39 yrs Sex: Male : 1980 Arrival Date: 02/17/2019 Time: 04:36 Bed 6 Private MD: Diagnosis: Unspecified asthma with (acute) exacerbation Presentation: 02/17 04:44 Presenting complaint: Patient states: started to have asthma attack around 0100 today I rr5 took albuterol 2 doses i feel relieved but it went back. 04:44 Transition of care: patient was not received from another setting of care. Onset of rr5 symptoms was February 17, 2019 at 01:00. Risk Assessment: Do you want to hurt yourself or someone else? Patient reports no desire to harm self or others. Initial Sepsis Screen: Does the patient meet any 2 criteria? RR > 20 per min. No. Patient's initial sepsis screen is negative. Does the patient have a suspected source of infection? No. Patient's initial sepsis screen is negative. Care prior to arrival: Medication(s) given: Albuterol Neb x 2. 04:44 Method Of Arrival: Ambulatory rr5 04:44 Acuity: JAMSHID 3 rr5 Historical: - Allergies: 04:47 Dilantin; rr5 - Home Meds: 04:47 albuterol sulfate 0.63 mg/3 mL Inhl nebu [Active]; Flonase 50 mcg/actuation Nasal spsn rr5 1 spray 2 times per day [Active]; levothyroxine oral [Active]; Zyrtec 10 mg Oral chew 1 tab once daily [Active]; - PMHx: 04:47 Asthma; hyperthyroidism; Pneumonia; seasonal allergies; rr5 - PSHx: 04:47 Thyroidectomy; rr5 - Immunization history:: Adult Immunizations unknown. - Social history:: Smoking status: Patient/guardian denies using tobacco, Patient/guardian denies using alcohol, street drugs. - Ebola Screening: : Patient negative for fever greater than or equal to 101.5 degrees Fahrenheit, and additional compatible Ebola Virus Disease symptoms Patient denies exposure to infectious person Patient denies travel to an Ebola-affected area in the 21 days before illness onset. - Family history:: not pertinent. - Hospitalizations: : No recent hospitalization is reported. Screenin:58 Abuse screen: Denies threats or abuse. Denies injuries from another. Nutritional rr5 screening: No deficits noted. Tuberculosis screening: No symptoms or risk factors identified. Fall Risk None identified. Total Mcgee Fall Scale indicates No Risk (0-24 pts). Assessment: 04:48 General: Appears uncomfortable, mild distress. Behavior is calm, cooperative, rr5 appropriate for age. Pain: Denies pain. Neuro: Level of Consciousness is awake, alert, obeys commands, Oriented to person, place, time, situation, Appropriate for age. Cardiovascular: Capillary refill < 3 seconds Patient's skin is warm and dry. Respiratory: Reports shortness of breath cough that is Airway is patent Respiratory effort is using tripod position, Respiratory pattern is tachypnea Breath sounds with wheezes bilaterally. the patient has mild shortness of breath. GI: No signs and/or symptoms were reported involving the gastrointestinal system. : No signs and/or symptoms were reported regarding the genitourinary system. EENT: No signs and/or symptoms were reported regarding the EENT system. Derm: Skin is intact, Skin temperature is warm. Musculoskeletal: Capillary refill < 3 seconds. 05:30 Reassessment: Patient appears in no apparent distress at this time. Patient is alert, rr5 oriented x 3, equal unlabored respirations, skin warm/dry/pink. Patient states feeling better. Patient states symptoms have improved. 06:30 Reassessment: Patient appears in no apparent distress at this time. Patient is alert, rr5 oriented x 3, equal unlabored respirations, skin warm/dry/pink. discharge instruction given and explained without complaints made, verbalized understanding. Patient denies pain at this time. Patient states feeling better. Patient states symptoms have improved. Vital Signs: 04:44 BP 125 / 92; Pulse 80; Resp 28; Temp 98.5; Pulse Ox 99% ; Weight 81.65 kg; Height 5 ft. rr5 7 in. (170.18 cm); Pain 0/10; 06:06 BP 115 / 69 LA Supine (auto/lg); Pulse 78 MON; Resp 18 S; Pulse Ox 99% on R/A; Pain ds4 0/10; 06:48 BP 121 / 75; Pulse 75; Resp 19; Temp 97.5; Pulse Ox 99% on R/A; rr5 04:44 Body Mass Index 28.19 (81.65 kg, 170.18 cm) rr5 ED Course: 04:36 Patient arrived in ED. ds1 04:38 Rober Tapia, RN is Primary Nurse. rr5 04:45 Constantin Magdaleno MD is Attending Physician. rn 04:46 Triage completed. rr5 04:48 Arm band placed on right wrist. rr5 04:58 Patient has correct armband on for positive identification. Placed in gown. Bed in low rr5 position. Call light in reach. Pulse ox on. NIBP on. 05:22 XRAY Chest (1 view) In Process Unspecified. EDMS 06:49 No provider procedures requiring assistance completed. Patient did not have IV access rr5 during this emergency room visit. Administered Medications: 04:50 Drug: SOLU-Medrol 125 mg Route: IM; Site: left gluteus; rr5 05:50 Follow up: Response: No adverse reaction rr5 04:58 Drug: Xopenex (3) 1.25 mg Route: Inhalation; rr5 06:00 Follow up: Response: No adverse reaction; Marked relief of symptoms; Wheezing diminishedrr5 06:22 Drug: Xopenex 1.25 mg Route: Inhalation; rr5 06:58 Follow up: Response: No adverse reaction; Marked relief of symptoms rr5 06:22 Drug: AtroVENT Aerosol 0.5 mg Route: Inhalation; rr5 06:58 Follow up: Response: No adverse reaction; Marked relief of symptoms rr5 Outcome: 06:25 Discharge ordered by . rn 06:49 Discharged to home ambulatory. rr5 06:49 Condition: stable 06:49 Discharge instructions given to patient, Instructed on discharge instructions, follow up and referral plans. medication usage, Demonstrated understanding of instructions, follow-up care, medications, Prescriptions given X 3. 06:58 Patient left the ED. rr5 Signatures: Dispatcher [employer] [facility]DR[facility] HospitalFreitasSelma ds1 Constantin Magdaleno MD MD rn Swanson, Donovan ds4 Rober Tapia RN RN rr5
--- NOTE | 2019-02-17 06:27 | EDPHYS ---
Physician Documentation [facility] Name: Qamar Mayorga Age: 39 yrs Sex: Male : 1980 Arrival Date: 02/17/2019 Time: 04:36 Bed 6 Private MD: ED Physician Constantin Magdaleno HPI: 02/17 05:57 This 39 yrs old Male presents to ER via Ambulatory with complaints of Asthma rn Exacerbation. 05:57 The patient presents to the emergency department with wheezing, the patient was rn reported to have audible wheezing, chest congestion. Onset: The symptoms/episode began/occurred yesterday. Modifying factors: The symptoms are alleviated by nebulizer treatment, the symptoms are aggravated by nothing. Severity of symptoms: At their worst the symptoms were moderate in the emergency department the symptoms have improved. The patient has experienced similar episodes in the past. The patient has not recently seen a physician. Reports asthma attack, began last night, took one neb with some improvement, but felt it coming back so came in for eval. No fever. + dry cough. No hemoptysis. . Historical: - Allergies: 04:47 Dilantin; rr5 - Home Meds: 04:47 albuterol sulfate 0.63 mg/3 mL Inhl nebu [Active]; Flonase 50 mcg/actuation Nasal spsn rr5 1 spray 2 times per day [Active]; levothyroxine oral [Active]; Zyrtec 10 mg Oral chew 1 tab once daily [Active]; - PMHx: 04:47 Asthma; hyperthyroidism; Pneumonia; seasonal allergies; rr5 - PSHx: 04:47 Thyroidectomy; rr5 - Immunization history:: Adult Immunizations unknown. - Social history:: Smoking status: Patient/guardian denies using tobacco, Patient/guardian denies using alcohol, street drugs. - Ebola Screening: : Patient negative for fever greater than or equal to 101.5 degrees Fahrenheit, and additional compatible Ebola Virus Disease symptoms Patient denies exposure to infectious person Patient denies travel to an Ebola-affected area in the 21 days before illness onset. - Family history:: not pertinent. - Hospitalizations: : No recent hospitalization is reported. ROS: 05:57 Constitutional: Negative for fever, chills, and weight loss, Eyes: Negative for injury, rn pain, redness, and discharge, Neck: Negative for injury, pain, and swelling, Cardiovascular: Negative for chest pain, palpitations, and edema, Respiratory: + sob and wheezing Abdomen/GI: Negative for abdominal pain, nausea, vomiting, diarrhea, and constipation, MS/Extremity: Negative for injury and deformity, Skin: Negative for injury, rash, and discoloration, Neuro: Negative for headache, weakness, numbness, tingling, and seizure. Exam: 05:57 Constitutional: This is a well developed, well nourished patient who is awake, alert, rn and in no acute distress. Head/Face: Normocephalic, atraumatic. ENT: MMM, no stridor Cardiovascular: Regular rate and rhythm. No pulse deficits. Respiratory: + mild tachypnea with diffuse inspiratory and exp wheezing Abdomen/GI: soft, non-tender MS/ Extremity: Pulses equal, no cyanosis. Neurovascular intact. Full, normal range of motion. Equal circumference. Neuro: Awake and alert, GCS 15, oriented to person, place, time, and situation. Cranial nerves II-XII grossly intact. Motor strength 5/5 in all extremities. Sensory grossly intact. Cerebellar exam normal. Normal gait. Vital Signs: 04:44 BP 125 / 92; Pulse 80; Resp 28; Temp 98.5; Pulse Ox 99% ; Weight 81.65 kg; Height 5 ft. rr5 7 in. (170.18 cm); Pain 0/10; 06:06 BP 115 / 69 LA Supine (auto/lg); Pulse 78 MON; Resp 18 S; Pulse Ox 99% on R/A; Pain ds4 0/10; 06:48 BP 121 / 75; Pulse 75; Resp 19; Temp 97.5; Pulse Ox 99% on R/A; rr5 04:44 Body Mass Index 28.19 (81.65 kg, 170.18 cm) rr5 MDM: 04:45 Patient medically screened. rn 06:22 Differential diagnosis: acute asthma, URI. Data reviewed: vital signs, nurses notes, rn radiologic studies, plain films, and as a result, I will discharge patient. Counseling: I had a detailed discussion with the patient and/or guardian regarding: the historical points, exam findings, and any diagnostic results supporting the discharge/admit diagnosis, radiology results, the need for outpatient follow up, to return to the emergency department if symptoms worsen or persist or if there are any questions or concerns that arise at home. Response to treatment: the patient's symptoms have markedly improved after treatment, and as a result, I will discharge patient. Special discussion: I discussed with the patient/guardian in detail that at this point there is no indication for admission to the hospital. It is understood, however, that if the symptoms persist or worsen the patient needs to return immediately for re-evaluation. 06:22 Test interpretation: by ED physician or midlevel provider: plain radiologic studies, rn Xray chest without pneumonia or pneumothorax. ED course: Neg CXR, afebrile, non-productive cough, will dc home with steroids and continuation of nebulizer. No indication for abx at this point. Feels much better. . 02/17 04:48 Order name: XRAY Chest (1 view) rn Administered Medications: 04:50 Drug: SOLU-Medrol 125 mg Route: IM; Site: left gluteus; rr5 05:50 Follow up: Response: No adverse reaction rr5 04:58 Drug: Xopenex (3) 1.25 mg Route: Inhalation; rr5 06:00 Follow up: Response: No adverse reaction; Marked relief of symptoms; Wheezing diminishedrr5 06:22 Drug: Xopenex 1.25 mg Route: Inhalation; rr5 06:58 Follow up: Response: No adverse reaction; Marked relief of symptoms rr5 06:22 Drug: AtroVENT Aerosol 0.5 mg Route: Inhalation; rr5 06:58 Follow up: Response: No adverse reaction; Marked relief of symptoms rr5 Disposition: 02/17/19 06:25 Discharged to Home. Impression: Unspecified asthma with (acute) exacerbation. - Condition is Stable. - Discharge Instructions: Asthma, Adult. - Prescriptions for Prednisone 20 mg Oral Tablet - take 3 tablet by ORAL route once daily for 5 days; 15 tablet. Albuterol Sulfate 2.5 mg /3 mL (0.083 %) Inhalation Solution for Nebulization - inhale 1 unit by NEBULIZATION route every 8 hours As needed; 1 box. Albuterol Sulfate 90 mcg/actuation - inhale 1-2 puff by INHALATION route every 4-6 hours; 1 Inhaler. - Medication Reconciliation Form, Thank You Letter, Antibiotic Education, Prescription Opioid Use form. - Follow up: Private Physician; When: As needed; Reason: Recheck today's complaints, Re-evaluation by your physician. - Problem is new. - Symptoms have improved. Signatures: Dispatcher [employer] EDConstantin Rowley MD MD rn Roque, Raymond, RN RN rr5 Corrections: (The following items were deleted from the chart) 06:58 06:25 02/17/2019 06:25 Discharged to Home. Impression: Unspecified asthma with (acute) rr5 exacerbation. Condition is Stable. Forms are Medication Reconciliation Form, Thank You Letter, Antibiotic Education, Prescription Opioid Use. Follow up: Private Physician; When: As needed; Reason: Recheck today's complaints, Re-evaluation by your physician. Problem is new. Symptoms have improved. rn
[2019-02-17 07:02] VITALS: O2SAT 99
[2019-02-17 07:05] VITALS: BP 121/75; TEMP 97.5
--- NOTE | 2019-02-18 08:30 | RAD REPORT ---
EXAM DESCRIPTION: RAD - Chest Single View - 02/17/2019 5:22 am CLINICAL HISTORY: COUGH COMPARISON: None. TECHNIQUE: XR CHEST 1 VIEW 02/17/2019 4:48 AM REPOSSESSION AGENT FINDINGS: Cardiac silhouette is normal in size. Lungs are clear without consolidation, atelectasis, mass or edema. There is no pleural effusion. There is no pneumothorax. There are no acute osseous fin dings. IMPRESSION: Clear lungs. Electronically signed by: Shane Costa MD 02/17/2019 6:07 AM REPOSSESSION AGENT Due to temporary technical issues with the PACS/Fluency reporting system, reports are being signed by the in house radiologist as a courtesy to ensure prompt reporting. The interpreting radiologist is f ully responsible for the content of the report.
== END 2019-02-17 06:58 | disposition home or self-care (01) ==
LOC: ER 04:34
DX: J45.901 Unspecified asthma with (acute) exacerbation (principal); E05.90 Thyrotoxicosis, unspecified without thyrotoxic crisis or storm; J30.2 Other seasonal allergic rhinitis; Z88.8 Allergy status to other drugs, medicaments and biological substances
CPT/HCPCS: 71045; 96372; 99284; J2930

== ENCOUNTER 2019-05-16 14:53 | Emergency (ER) | payer SELFPAY ==
[2011-11-05 16:51] VITALS: BP 129/67
--- OUTSIDE RECORDS SUMMARY | 2019-05-16 14:54 | XMS REPORT ---
:1980 [facility] Address [address] [place] [address] Dr. Batista [address] [place] [address] Care Team Providers Name Role Phone Unavailable Unavailable Unavailable Problems This patient has no known problems. Allergies, Adverse Reactions, Alerts This patient has no known allergies or adverse reactions. Medications This patient has no known medications.
[2019-05-16] MEDS ORDERED: predniSONE 20 MG TAB ONE (17:13)
[2019-05-16] MEDS ORDERED: IPRATROPIUM BROM 0.5MG/2.5ML ONE (17:32)
[2019-05-16] MEDS ORDERED: ALBUTEROL 2.5 MG/3 ML NEB SOL ONE (17:32)
--- NOTE | 2019-05-16 17:38 | EDPHYS ---
Physician Documentation [facility] Name: Qamar Mayorga Age: 39 yrs Sex: Male : 1980 Arrival Date: 05/16/2019 Time: 14:57 Bed 5 Private MD: ED Physician Franck Gruber HPI: 05/15 18:07 This 39 yrs old Male presents to ER via Ambulatory with complaints of Throat kb Problem. 18:07 The patient presents with sore throat. The patient describes throat pain as constant. kb Onset: The symptoms/episode began/occurred yesterday. Severity of symptoms: At their worst the symptoms were mild, in the emergency department the symptoms are unchanged. Modifying factors: The symptoms are alleviated by nothing, the symptoms are aggravated by swallowing, Patient's oral intake status: good. Associated signs and symptoms: Pertinent positives: Sore throat. The patient has not experienced similar symptoms in the past. The patient has not recently seen a physician. Pt reports tightness in throat since yesterday. Goes away after a neb treatment, then builds back up. . Historical: - Allergies: 15:14 Dilantin; ca1 - PMHx: 15:14 Asthma; hyperthyroidism; Pneumonia; seasonal allergies; ca1 - PSHx: 15:14 Thyroidectomy; ca1 - Immunization history:: Adult Immunizations up to date, Flu vaccine is up to date. - Social history:: Smoking status: Patient denies any tobacco usage or history of. ROS: 18:00 Constitutional: Negative for fever, chills, and weight loss, Neck: Negative for injury, kb pain, and swelling, Cardiovascular: Negative for chest pain, palpitations, and edema, Respiratory: Negative for shortness of breath, cough, wheezing, and pleuritic chest pain, Abdomen/GI: Negative for abdominal pain, nausea, vomiting, diarrhea, and constipation, Back: Negative for injury and pain, MS/Extremity: Negative for injury and deformity, Skin: Negative for injury, rash, and discoloration, Neuro: Negative for headache, weakness, numbness, tingling, and seizure. 18:00 ENT: Positive for sore throat. Exam: 18:00 Constitutional: This is a well developed, well nourished patient who is awake, alert, kb and in no acute distress. Head/Face: Normocephalic, atraumatic. ENT: Nares patent. No nasal discharge, no septal abnormalities noted. Tympanic membranes are normal and external auditory canals are clear. Oropharynx with no redness, swelling, or masses, exudates, or evidence of obstruction, uvula midline. Mucous membranes moist. Neck: Trachea midline, no thyromegaly or masses palpated, and no cervical lymphadenopathy. Supple, full range of motion without nuchal rigidity, or vertebral point tenderness. No Meningismus. Chest/axilla: Normal chest wall appearance and motion. Nontender with no deformity. No lesions are appreciated. Cardiovascular: Regular rate and rhythm with a normal S1 and S2. No gallops, murmurs, or rubs. Normal PMI, no JVD. No pulse deficits. Abdomen/GI: Soft, non-tender, with normal bowel sounds. No distension or tympany. No guarding or rebound. No evidence of tenderness throughout. Skin: Warm, dry with normal turgor. Normal color with no rashes, no lesions, and no evidence of cellulitis. MS/ Extremity: Pulses equal, no cyanosis. Neurovascular intact. Full, normal range of motion. Neuro: Awake and alert, GCS 15, oriented to person, place, time, and situation. Cranial nerves II-XII grossly intact. Motor strength 5/5 in all extremities. Sensory grossly intact. Cerebellar exam normal. Normal gait. 18:00 Respiratory: the patient does not display signs of respiratory distress, Respirations: normal, symetrical, Breath sounds: wheezing: inspiratory expiratory that is moderate, is scattered. Vital Signs: 15:11 BP 138 / 95; Pulse 79; Resp 17 S; Temp 97.9(TE); Pulse Ox 99% on R/A; Weight 81.65 kg ca1 (R); Height 5 ft. 9 in. (175.26 cm) (R); 17:31 BP 146 / 102; Pulse 59; Resp 16; Pulse Ox 100% ; bp 15:11 Body Mass Index 26.58 (81.65 kg, 175.26 cm) ca1 MDM: 16:21 Patient medically screened. kb 17:14 Data reviewed: vital signs, nurses notes. Data interpreted: Pulse oximetry: is 99 %. kb 17:36 Counseling: I had a detailed discussion with the patient and/or guardian regarding: the kb historical points, exam findings, and any diagnostic results supporting the discharge/admit diagnosis, lab results, the need for outpatient follow up, a family practitioner, to return to the emergency department if symptoms worsen or persist or if there are any questions or concerns that arise at home. 05/15 16:26 Order name: Strep; Complete Time: 17:36 kb 05/15 17:37 Order name: Throat Culture EDMS Administered Medications: 17:12 Drug: predniSONE 60 mg Route: PO; em 17:17 Follow up: Response: No adverse reaction bp 17:17 Not Given (CANCELLED PER UNIT POLICY): DuoNeb (3:1) (2.5 mg - 0.5 mg) 3 ml Nebulizer bp once 17:31 Drug: DuoNeb (3:1) (2.5 mg - 0.5 mg) 3 ml Route: Nebulizer; bp 17:32 Follow up: Response: No adverse reaction bp Disposition: 05/16 07:08 Co-signature as Attending Physician, Franck Gruber MD I agree with the assessment and kdr plan of care. Disposition: 05/16/19 17:37 Discharged to Home. Impression: Unspecified asthma with (acute) exacerbation. - Condition is Stable. - Discharge Instructions: Asthma, Adult, [id number]. - Prescriptions for Prednisone 20 mg Oral Tablet - take 1 tablet by ORAL route once daily for 5 days; 5 tablet. - Medication Reconciliation Form, Thank You Letter, Antibiotic Education, Prescription Opioid Use, Work release form form. - Follow up: Emergency Department; When: As needed; Reason: Worsening of condition. Follow up: Private Physician; When: 2 - 3 days; Reason: Recheck today's complaints, Continuance of care, Re-evaluation by your physician. Signatures: Dispatcher [employer] EDFL Lety Cali, RETENTION REPRESENTATIVE-C RETENTION REPRESENTATIVE-Ckb Franck Gruber MD MD kdr Munoz, Edgar, RN RN Mike Bae RN RN bp Acob, Cheryl, RN RN ca1 Corrections: (The following items were deleted from the chart) 05/15 18:13 17:37 05/16/2019 17:37 Discharged to Home. Impression: Unspecified asthma with (acute) bp exacerbation. Condition is Stable. Forms are Medication Reconciliation Form, Thank You Letter, Antibiotic Education, Prescription Opioid Use. Follow up: Emergency Department; When: As needed; Reason: Worsening of condition. Follow up: Private Physician; When: 2 - 3 days; Reason: Recheck today's complaints, Continuance of care, Re-evaluation by your physician. kb
--- NOTE | 2019-05-16 17:38 | ER ---
Nurse's Notes [facility] Name: Qamar Mayorga Age: 39 yrs Sex: Male : 1980 Arrival Date: 05/16/2019 Time: 14:57 Bed 5 Private MD: Diagnosis: Unspecified asthma with (acute) exacerbation Presentation: 05/15 15:11 Chief complaint: Patient states: "I don't know if it's my Asthma but I feel like my ca1 throat is tight. I have a little cough". Denies fever and nasal congestion. Coronavirus screen: Patient reports a cough. Patient denies shortness of breath or difficulty breathing. Patient denies measured and/or subjective temperature greater than 100.4F. Patient denies travel on a cruise ship or to a country the [facility] currently lists as an affected area. Patient denies contact with known and/or suspected case of COVID-19. Ebola Screen: Patient negative for fever greater than or equal to 101.5 degrees Fahrenheit, and additional compatible Ebola Virus Disease symptoms Patient denies exposure to infectious person. Patient denies travel to an Ebola-affected area in the 21 days before illness onset. No symptoms or risks identified at this time. Initial Sepsis Screen: Does the patient meet any 2 criteria? No. Patient's initial sepsis screen is negative. Does the patient have a suspected source of infection? No. Patient's initial sepsis screen is negative. Risk Assessment: Do you want to hurt yourself or someone else? Patient reports no desire to harm self or others. Onset of symptoms was May 16, 2019. 15:11 Method Of Arrival: Ambulatory ca1 15:11 Acuity: JAMSHID 3 ca1 Triage Assessment: 15:15 EENT: Throat is clear. ca1 15:15 General: Appears in no apparent distress. comfortable, Behavior is cooperative, bp appropriate for age, anxious. Pain: Complains of pain in THROAT. EENT: Throat is clear Reports pain when swallowing. Neuro: No deficits noted. Cardiovascular: No deficits noted. Respiratory: No deficits noted. GI: No signs and/or symptoms were reported involving the gastrointestinal system. : No signs and/or symptoms were reported regarding the genitourinary system. Derm: No deficits noted. Musculoskeletal: No deficits noted. Historical: - Allergies: 15:14 Dilantin; ca1 - PMHx: 15:14 Asthma; hyperthyroidism; Pneumonia; seasonal allergies; ca1 - PSHx: 15:14 Thyroidectomy; ca1 - Immunization history:: Adult Immunizations up to date, Flu vaccine is up to date. - Social history:: Smoking status: Patient denies any tobacco usage or history of. Screenin:15 Abuse screen: Denies threats or abuse. Denies injuries from another. Nutritional bp screening: No deficits noted. Tuberculosis screening: No symptoms or risk factors identified. Fall Risk None identified. Assessment: 15:15 General: SEE TRIAGE NOTE. bp 17:45 Reassessment: PT D/C HOME AMBULATORY, DX WITH ASTHMA EXACERBATION. bp Vital Signs: 15:11 BP 138 / 95; Pulse 79; Resp 17 S; Temp 97.9(TE); Pulse Ox 99% on R/A; Weight 81.65 kg ca1 (R); Height 5 ft. 9 in. (175.26 cm) (R); 17:31 BP 146 / 102; Pulse 59; Resp 16; Pulse Ox 100% ; bp 15:11 Body Mass Index 26.58 (81.65 kg, 175.26 cm) ca1 ED Course: 14:57 Patient arrived in ED. ag5 15:13 Triage completed. ca1 15:14 Arm band placed on right wrist. ca1 15:15 Patient has correct armband on for positive identification. Bed in low position. Call bp light in reach. Side rails up X2. 16:21 Lety Cali FNP-C [facility]. kb 16:21 Franck Gruber MD is Attending Physician. kb 16:32 Mike Calero, RN is Primary Nurse. bp 17:45 No provider procedures requiring assistance completed. Patient did not have IV access bp during this emergency room visit. Administered Medications: 17:12 Drug: predniSONE 60 mg Route: PO; em 17:17 Follow up: Response: No adverse reaction bp 17:17 Not Given (CANCELLED PER UNIT POLICY): DuoNeb (3:1) (2.5 mg - 0.5 mg) 3 ml Nebulizer bp once 17:31 Drug: DuoNeb (3:1) (2.5 mg - 0.5 mg) 3 ml Route: Nebulizer; bp 17:32 Follow up: Response: No adverse reaction bp Outcome: 17:37 Discharge ordered by . kb 17:45 Discharged to home ambulatory. bp 17:45 Condition: stable 17:45 Discharge instructions given to patient, Instructed on discharge instructions, follow up and referral plans. medication usage, Demonstrated understanding of instructions, follow-up care, medications, Prescriptions given X 1. 18:13 Patient left the ED. bp Signatures: Lety Cali, TRACK LAMINATING MACHINE TENDER-C TRACK LAMINATING MACHINE TENDER-Yoav White RN RN em Peltier, Brian, RN RN bp Acob, Cheryl, RN RN [facility] Liz Epps [facility]
== END 2019-05-16 18:13 | disposition home or self-care (01) ==
LOC: ER 14:53
DX: J45.901 Unspecified asthma with (acute) exacerbation (principal); Z88.8 Allergy status to other drugs, medicaments and biological substances
CPT/HCPCS: 87070; 87081; 94640; 99284; J7512

== ENCOUNTER 2019-07-05 07:56 | Emergency (ER) | payer SELFPAY ==
--- OUTSIDE RECORDS SUMMARY | 2019-07-05 08:03 | XMS REPORT ---
:1980 Author Organization [facility] t Address [address] [place] [address] Dr. Stapleton[address] [place] [address] Care Team Providers Name Role Phone Doctor Unassigned, Name Attending Clinician Unavailable Austin BOWIE Attending Clinician Problems This patient has no known problems. Allergies, Adverse Reactions, Alerts This patient has no known allergies or adverse reactions. Medications This patient has no known medications. Procedures This patient has no known procedures. Encounters Start End Encounter Admission Attending Care Care Encounter Source Date/Time Date/Time Type Type Clinicians Facility Department ID 2018-11-09 2018-11-09 Orders Doctor [place] [id number] 00:00:00 00:00:00 Only UnassKENYATTA cartwright [id number] [place] [facility] [id number] 2018-11-08 2018-11-08 Telephone PHILLIP Avila [id number] 00:00:00 00:00:00 Marika Kim [id number] [place] [id number] [facility] [phone] [address] Building Results This patient has no known results.
[2019-07-05] MEDS ORDERED: IPRATROPIUM BROM 0.5MG/2.5ML ONE (08:24)
[2019-07-05] MEDS ORDERED: ALBUTEROL 2.5 MG/3 ML NEB SOL ONE (08:25)
[2019-07-05] MEDS ORDERED: dexAMETHasone 10 MG/ML VIAL ONE (08:25)
--- NOTE | 2019-07-05 09:03 | RAD REPORT ---
EXAM DESCRIPTION: RAD - Chest Single View - 07/05/2019 8:50 am CLINICAL HISTORY: cough, shortness of breath COMPARISON: January 2019 TECHNIQUE: AP portable chest image was obtained 07/05/2019 8:50 am . FINDINGS: Slightly hazy opacification is present in the left base. This is favored to be more techni jenna in nature rather than a true lung parenchymal process. A true or significant change from comparis on is doubtful. Elsewhere no peripheral mass, consolidation or failure finding. Heart and vasculature are normal. No measurable pleural effusion and no pneumothorax. No acute bony abnormality seen. No acute aortic find ings suspected. IMPRESSION: No acute cardiopulmonary process. No significant change from comparison.
--- NOTE | 2019-07-05 09:42 | EDPHYS ---
Physician Documentation [facility] Name: Qamar Mayorga Age: 39 yrs Sex: Male : 1980 Arrival Date: 07/05/2019 Time: 08:00 Bed 6 Private MD: ED Physician Claude Lopez HPI: 07/04 08:16 This 39 yrs old Male presents to ER via Ambulatory with complaints of BODY jmm ACHES, Shortness Of Breath. 08:16 The patient presents to the emergency department with wheezing, Current therapy: jmm albuterol inhaler. Onset: The symptoms/episode began/occurred gradually, 1 week(s) ago. Modifying factors: The symptoms are alleviated by inhaler, the symptoms are aggravated by pollen. Associated signs and symptoms: Pertinent negatives: fever. This is a 39 year old male with a history of asthma that presents to the ED with complaints of cough, wheezing beginning approx 1 week ago which he attributes to an asthma exacerbation. Inhalers are transiently effective. Today the patient states symptoms worsened while walking today with heavy items. Denies fever but complains of sweats. . Historical: - Allergies: 08:11 Dilantin; jl7 - Home Meds: 08:11 albuterol sulfate 0.63 mg/3 mL Inhl nebu [Active]; Flonase 50 mcg/actuation Nasal spsn jl7 1 spray 2 times per day [Active]; levothyroxine oral [Active]; Zyrtec 10 mg Oral chew 1 tab once daily [Active]; - PMHx: 08:11 Asthma; hyperthyroidism; Pneumonia; seasonal allergies; jl7 - PSHx: 08:11 Thyroidectomy; jl7 - Immunization history:: Adult Immunizations unknown. - Social history:: Smoking status: Patient denies any tobacco usage or history of. ROS: 08:16 Eyes: Negative for injury, pain, redness, and discharge. jmm 08:16 Cardiovascular: Negative for chest pain, palpitations, and edema. 08:16 Constitutional: Positive for body aches, Negative for fever. 08:16 ENT: Positive for sore throat. 08:16 Respiratory: Positive for cough, wheezing. 08:16 Abdomen/GI: Negative for abdominal pain, nausea and vomiting, diarrhea. 08:16 All other systems are negative. Exam: 08:16 Constitutional: This is a well developed, well nourished patient who is awake, alert, jmm and in no acute distress. Head/Face: atraumatic. Eyes: EOMI, no conjunctival erythema appreciated ENT: Moist Mucus Membranes Neck: Trachea midline, Supple Chest/axilla: Normal chest wall appearance and motion. Cardiovascular: Regular rate and rhythm. No edema appreciated 08:16 Abdomen/GI: Non distended, soft Back: Normal ROM Skin: General appearance color normal MS/ Extremity: Moves all extremities, no obvious deformities appreciated, no edema noted to the lower extremities Neuro: Awake and alert, normal gait Psych: Behavior is normal, Mood is normal, Patient is cooperative and pleasant 08:16 Respiratory: the patient does not display signs of respiratory distress, Respirations: normal, Breath sounds: wheezing: that is moderate, is heard diffusely. Vital Signs: 08:08 BP 140 / 89; Pulse 80; Resp 17; Temp 98; Pulse Ox 98% ; Weight 81.65 kg; Pain 0/10; jl7 08:34 BP 132 / 89; Pulse 83; Resp 19; Pulse Ox 98% ; jl7 09:49 BP 131 / 81; Pulse 78; Resp 16; Temp 98; Pulse Ox 98% ; bp MDM: 08:14 Patient medically screened. [facility] 09:40 Data reviewed: vital signs, nurses notes. Counseling: I had a detailed discussion with [facility] the patient and/or guardian regarding: the historical points, exam findings, and any diagnostic results supporting the discharge/admit diagnosis, lab results, radiology results, the need for outpatient follow up, to return to the emergency department if symptoms worsen or persist or if there are any questions or concerns that arise at home. ED course: Decreased wheezing on reexamination. Patient states feeling much better. Patient is advised to follow up with pcp and is otherwise given strict return precautions. Patient understood and agrees with the plan of care. . 07/04 08:15 Order name: Flu; Complete Time: 09:16 [facility] 07/04 08:15 Order name: Strep; Complete Time: 09:05 [facility] 07/04 08:15 Order name: Chest Single View XRAY; Complete Time: 09:05 [facility] 07/04 09:03 Order name: Throat Culture EDMS Administered Medications: 00:20 Drug: Decadron 10 mg Route: IM; Site: right deltoid; [facility] 10:05 Follow up: Response: No adverse reaction bp 08:20 Drug: DuoNeb (3:1) (2.5 mg - 0.5 mg) 3 ml Route: Nebulizer; jl7 10:05 Follow up: Response: No adverse reaction bp Disposition: 18:18 Co-signature as Attending Physician, Claude Lopez MD. ma2 Disposition: 07/05/19 09:41 Discharged to Home. Impression: Unspecified asthma with (acute) exacerbation. - Condition is Stable. - Discharge Instructions: Asthma, Adult. - Prescriptions for Prednisone 20 mg Oral Tablet - take 3 tablet by ORAL route once daily for 5 days; 15 tablet. - Medication Reconciliation Form, Thank You Letter, Antibiotic Education, Prescription Opioid Use, Work release form form. - Follow up: Private Physician; When: 2 - 3 days; Reason: Recheck today's complaints, Continuance of care, Re-evaluation by your physician. Signatures: Dispatcher [employer] EDMS Adelso Sidhu PA PA jmm Leal, Jahala RN RN jl7 Mike Calero RN RN bp Alzahri, Mohammad, MD MD ma2 Corrections: (The following items were deleted from the chart) 10:06 09:41 07/05/2019 09:41 Discharged to Home. Impression: Unspecified asthma with (acute) bp exacerbation. Condition is Stable. Forms are Medication Reconciliation Form, Thank You Letter, Antibiotic Education, Prescription Opioid Use. Follow up: Private Physician; When: 2 - 3 days; Reason: Recheck today's complaints, Continuance of care, Re-evaluation by your physician. quintin
--- NOTE | 2019-07-05 09:42 | ER ---
Nurse's Notes [facility] Name: Qamar Mayorga Age: 39 yrs Sex: Male : 1980 Arrival Date: 07/05/2019 Time: 08:00 Bed 6 Private MD: Diagnosis: Unspecified asthma with (acute) exacerbation Presentation: 07/04 08:08 Chief complaint: Patient states: "I've felt winded and get sweaty when I'm just jl7 walking." x 1 week, denies fever. Coronavirus screen: Ebola Screen: No symptoms or risks identified at this time. Onset: The symptoms/episode began/occurred 1 week(s) ago. Anaphylaxis evaluation, no signs or symptoms of anaphylaxis were noted. Initial Sepsis Screen: Does the patient meet any 2 criteria? No. Patient's initial sepsis screen is negative. Does the patient have a suspected source of infection? No. Patient's initial sepsis screen is negative. Risk Assessment: Do you want to hurt yourself or someone else? Patient reports no desire to harm self or others. Onset of symptoms was June 28, 2019. Care prior to arrival: None. 08:08 Method Of Arrival: Ambulatory jl7 08:08 Acuity: JAMSHID 3 jl7 Triage Assessment: 08:11 General: Appears in no apparent distress. uncomfortable, Behavior is calm, cooperative, jl7 appropriate for age. Pain: Denies pain. Neuro: Level of Consciousness is awake, alert, obeys commands, Oriented to person, place, time, situation. Cardiovascular: Denies chest pain, Heart tones S1 S2 present. Respiratory: Reports shortness of breath on exertion Airway is patent Respiratory effort is even, unlabored, Respiratory pattern is regular, symmetrical, Breath sounds with wheezes bilaterally. the patient has mild shortness of breath. Derm: Skin is pink, warm \\T\\ dry. Historical: - Allergies: 08:11 Dilantin; jl7 - Home Meds: 08:11 albuterol sulfate 0.63 mg/3 mL Inhl nebu [Active]; Flonase 50 mcg/actuation Nasal spsn jl7 1 spray 2 times per day [Active]; levothyroxine oral [Active]; Zyrtec 10 mg Oral chew 1 tab once daily [Active]; - PMHx: 08:11 Asthma; hyperthyroidism; Pneumonia; seasonal allergies; jl7 - PSHx: 08:11 Thyroidectomy; jl7 - Immunization history:: Adult Immunizations unknown. - Social history:: Smoking status: Patient denies any tobacco usage or history of. Screenin:15 Abuse screen: Denies threats or abuse. Denies injuries from another. Nutritional jl7 screening: No deficits noted. Tuberculosis screening: No symptoms or risk factors identified. Fall Risk None identified. Assessment: 08:02 General: see triage assessment. jl7 08:33 Reassessment: x-ray at bedside. jl7 10:03 Reassessment: PT D/C HOME AMBULATORY, DX WITH ASTHMA EXACERBATION. bp Vital Signs: 08:08 BP 140 / 89; Pulse 80; Resp 17; Temp 98; Pulse Ox 98% ; Weight 81.65 kg; Pain 0/10; jl7 08:34 BP 132 / 89; Pulse 83; Resp 19; Pulse Ox 98% ; jl7 09:49 BP 131 / 81; Pulse 78; Resp 16; Temp 98; Pulse Ox 98% ; bp ED Course: 08:00 Patient arrived in ED. bp1 08:05 Adelso Sidhu PA is PHCP. jmm 08:05 Claude Lopez MD is Attending Physician. jmm 08:08 Parker Holman, PJ is Primary Nurse. jl7 08:11 Triage completed. jl7 08:11 Arm band placed on right wrist. jl7 08:16 Patient has correct armband on for positive identification. Placed in gown. Bed in low jl7 position. Call light in reach. Side rails up X 1. Pulse ox on. NIBP on. 08:34 Flu and/or RSV swab sent to lab. Strep swab sent to lab. jl7 08:51 Chest Single View XRAY In Process Unspecified. EDMS 10:03 No provider procedures requiring assistance completed. Patient did not have IV access bp during this emergency room visit. Administered Medications: 00:20 Drug: Decadron 10 mg Route: IM; Site: right deltoid; jl7 10:05 Follow up: Response: No adverse reaction bp 08:20 Drug: DuoNeb (3:1) (2.5 mg - 0.5 mg) 3 ml Route: Nebulizer; jl7 10:05 Follow up: Response: No adverse reaction bp Outcome: 09:41 Discharge ordered by MD. jmm 10:03 Discharged to home ambulatory. bp 10:03 Condition: stable 10:03 Discharge instructions given to patient, Instructed on discharge instructions, follow up and referral plans. medication usage, Demonstrated understanding of instructions, follow-up care, medications, Prescriptions given X 1. 10:06 Patient left the ED. bp Signatures: Dispatcher [employer] EDMS Adelso Sidhu PA PA jmm Leal, Jahala RN RN jl7 Mike Calero RN RN bp Laurie Choi bp1 Corrections: (The following items were deleted from the chart) 08:34 08:02 BP 132 / 89; Pulse 83bpm; Resp 19bpm; Pulse Ox 98%; fortino [id number]
[2019-07-05 10:26] VITALS: TEMP 98; O2SAT 98
[2019-07-05 10:29] VITALS: BP 131/81
== END 2019-07-05 10:06 | disposition home or self-care (01) ==
LOC: ER 07:56
DX: J45.901 Unspecified asthma with (acute) exacerbation (principal); E03.9 Hypothyroidism, unspecified; Z88.8 Allergy status to other drugs, medicaments and biological substances
CPT/HCPCS: 71045; 87070; 87081; 87804; 94640; 96372; 99284; J1100

== ENCOUNTER 2019-10-02 06:37 | Emergency (ER) | payer SELFPAY ==
--- OUTSIDE RECORDS SUMMARY | 2019-10-02 06:41 | XMS REPORT | Continuity of Care Document ---
:1980 Author Organization [facility] t Address [address] [place] [address] Dr. Stap[address]. [address] [place] [address] Care Team Providers Name Role Phone Doctor [...] ID 2018-11-09 2018-11-09 Orders Doctor [place] [id number] 00:00:00 00:00:00 Only UnassKENYATTA cartwright [id number] [place] [facility] [id number] 2018-11-08 2018-11-08 Telephone PHILLIP Avila [id number] 00:00:00 00:00:00 Marika Kim [id number] [place] [id number] [employer] [phone] [address] Building Results This patient has no known results.
--- NOTE | 2019-10-02 07:07 | EDPHYS ---
Physician Documentation [facility] Name: Qamar Mayorga Age: 39 yrs Sex: Male : 1980 Arrival Date: 10/02/2019 Time: 06:38 Bed 15 Private MD: ED Physician Rajinder He HPI: 10/01 06:46 This 39 yrs old Male presents to ER via Unassigned with complaints of Medical kb Clearance. 06:46 The patient or guardian reports cough, that is intermittent, described as mild. Onset: kb The symptoms/episode began/occurred last week. Severity of symptoms: At their worst the symptoms were moderate, in the emergency department the symptoms have improved, moderately. Modifying factors: The symptoms are alleviated by nothing, the symptoms are aggravated by nothing. Associated signs and symptoms: Pertinent positives: rhinorrhea, Pertinent negatives: chest pain, diarrhea, ear ache, fever, nausea, sore throat, vomiting. The patient has experienced similar episodes in the past, multiple times. The patient has been recently seen by a physician: the patient's primary care provider, 1 week(s) ago. Pt reports he went to work this morning and his temp at the gate was 99.9 so they sent him to get checked out and make sure he didn't have COVID. Pt reports sinus congestion, drainage down throat and cough. States he went to his PCP last week for chest tightness and was given a steroid injection, was not put on oral steroids. Pt has long history of asthma, I have seen him several times for similar symptoms. Expiratory wheezing noted bilaterally. Pt denies shortness of breath. . 06:53 Pt reports he did have exposure to COVID, one of his coworkers was positive. . kb Historical: - Allergies: 06:56 Dilantin; vc - PMHx: 06:56 Asthma; hyperthyroidism; Pneumonia; seasonal allergies; vc - PSHx: 06:56 Thyroidectomy; vc - Immunization history:: Adult Immunizations up to date. - Social history:: Smoking status: Patient denies any tobacco usage or history of. ROS: 06:46 Constitutional: Negative for fever, chills, and weight loss, Neck: Negative for injury, kb pain, and swelling, Cardiovascular: Negative for chest pain, palpitations, and edema, Abdomen/GI: Negative for abdominal pain, nausea, vomiting, diarrhea, and constipation, Back: Negative for injury and pain, MS/Extremity: Negative for injury and deformity, Skin: Negative for injury, rash, and discoloration, Neuro: Negative for headache, weakness, numbness, tingling, and seizure. 06:46 ENT: Positive for rhinorrhea, sinus congestion. 06:46 Respiratory: Positive for cough, Negative for dyspnea on exertion, hemoptysis, orthopnea, pleurisy, shortness of breath, sputum production. Exam: 06:46 Constitutional: This is a well developed, well nourished patient who is awake, alert, kb and in no acute distress. Head/Face: Normocephalic, atraumatic. Chest/axilla: Normal chest wall appearance and motion. Nontender with no deformity. No lesions are appreciated. Cardiovascular: Regular rate and rhythm with a normal S1 and S2. No gallops, murmurs, or rubs. Normal PMI, no JVD. No pulse deficits. Abdomen/GI: Soft, non-tender, with normal bowel sounds. No distension or tympany. No guarding or rebound. No evidence of tenderness throughout. Back: No spinal tenderness. No costovertebral tenderness. Full range of motion. Skin: Warm, dry with normal turgor. Normal color with no rashes, no lesions, and no evidence of cellulitis. MS/ Extremity: Pulses equal, no cyanosis. Neurovascular intact. Full, normal range of motion. Neuro: Awake and alert, GCS 15, oriented to person, place, time, and situation. Cranial nerves II-XII grossly intact. Motor strength 5/5 in all extremities. Sensory grossly intact. Cerebellar exam normal. Normal gait. 06:46 Respiratory: the patient does not display signs of respiratory distress, Respirations: normal, Breath sounds: wheezing: expiratory that is moderate, is heard diffusely. Vital Signs: 06:50 BP 121 / 76; Pulse 80; Resp 22; Temp 98.2; Pulse Ox 98% on R/A; Weight 90.72 kg; Height vc 5 ft. 8 in. (172.72 cm); Pain 0/10; 06:50 Body Mass Index 30.41 (90.72 kg, 172.72 cm) vc MDM: 06:41 Patient medically screened. kb 06:50 Data reviewed: vital signs, nurses notes. kb 06:54 Data interpreted: Pulse oximetry: on room air is 98 %. Interpretation: normal. kb 06:54 ED course: Pt has a nebulizer and medications at home. States he is not short of breath kb and does not have any tightness. O2 sat 98% on room air, no respiratory distress. Will prescribe oral steroids and pt will use neb when he gets home. . 07:05 Counseling: I had a detailed discussion with the patient and/or guardian regarding: the kb historical points, exam findings, and any diagnostic results supporting the discharge/admit diagnosis, radiology results, the need for outpatient follow up, a family practitioner, to return to the emergency department if symptoms worsen or persist or if there are any questions or concerns that arise at home. 10/01 06:53 Order name: COVID-19 kb 10/01 06:45 Order name: Chest Single View XRAY kb Administered Medications: 07:05 Drug: Decadron 6 mg Route: PO; vc 07:33 Follow up: Response: No adverse reaction jr10 Disposition: 07:52 Co-signature as Attending Physician, Rajinder He MD I agree with the assessment and tw4 plan of care. Disposition: 10/02/19 07:06 Discharged to Home. Impression: Asthma, Cough. - Condition is Stable. - Discharge Instructions: Asthma, Adult, [id number], Cough, Adult, [id number]. - Prescriptions for dexamethasone 6 mg Oral tablet - take 1 tablet by ORAL route once daily for 7 days; 7 tablet. - Work release form, Medication Reconciliation Form, Thank You Letter, Antibiotic Education, Prescription Opioid Use form. - Follow up: Emergency Department; When: As needed; Reason: Worsening of condition. Follow up: Private Physician; When: 2 - 3 days; Reason: Recheck today's complaints, Continuance of care, Re-evaluation by your physician. Signatures: Dispatcher [employer] EDMS Lety Cali, Rajinder Sebastian MD MD tw4 Elzbieta Oneill RN RN Jen Finn RN RN jr10 Corrections: (The following items were deleted from the chart) 06:53 06:46 Pt reports he went to work this morning and his temp at the gate was 99.9 so they kb sent him to get checked out and make sure he didn't have COVID. Pt reports sinus congestion and drainage, cough and tightness in his lungs last week. States he went to his PCP last week and was given a steroid injection to help with the tightness, was not put on oral steroids. Pt has long history of asthma, I have seen him several times for similar symptoms. Expiratory wheezing noted bilaterally. Pt denies shortness of breath. . kb 06:56 06:54 ED course: Pt has a nebulizer and medications at home. States he is not short of kb breath and does not have any tightness. Will prescribe oral steroids and pt will use neb when he gets home. . kb 07:03 06:46 Pt reports he went to work this morning and his temp at the gate was 99.9 so they kb sent him to get checked out and make sure he didn't have COVID. Pt reports sinus congestion and drainage, cough and tightness in his lungs last week. States he went to his PCP last week and was given a steroid injection to help with the tightness, was not put on oral steroids. Pt has long history of asthma, I have seen him several times for similar symptoms. Expiratory wheezing noted bilaterally. Pt denies shortness of breath. . kb 07:34 07:06 10/02/2019 07:06 Discharged to Home. Impression: Asthma; Cough. Condition is jr10 Stable. Forms are Medication Reconciliation Form, Thank You Letter, Antibiotic Education, Prescription Opioid Use. Follow up: Emergency Department; When: As needed; Reason: Worsening of condition. Follow up: Private Physician; When: 2 - 3 days; Reason: Recheck today's complaints, Continuance of care, Re-evaluation by your physician. kb
--- NOTE | 2019-10-02 07:07 | ER ---
Nurse's Notes [facility] Name: Qamar Mayorga Age: 39 yrs Sex: Male : 1980 Arrival Date: 10/02/2019 Time: 06:38 Bed 15 Private MD: Diagnosis: Asthma;Cough Presentation: 10/01 06:50 Chief complaint: Patient states: "WHEN THEY TOOK MY TEMPERATURE AT WORK THEY TOLD ME IT vc WAS 99.9 AND I HAD TO GET MEDICAL CLEARANCE TO COME BACK, ONE OF MY BOSSES TESTED POSITIVE FOR THAT VIRUS LAST WEEK.". Coronavirus screen: Client denies travel out of the [place] in the last 14 days. COUGH FROM DRAINAGE IN THE BACK OF THROAT, "I ALWAYS HAVE THIS". KNOWN CONTACT OF COVID POSITIVE. Client presents with at least one sign or symptom that may indicate coronavirus-19. Standard/surgical mask placed on the client. Ebola Screen: No symptoms or risks identified at this time. Initial Sepsis Screen: Does the patient meet any 2 criteria? RR > 20 per min. No. Patient's initial sepsis screen is negative. Does the patient have a suspected source of infection? No. Patient's initial sepsis screen is negative. Risk Assessment: Do you want to hurt yourself or someone else? Patient reports no desire to harm self or others. Onset of symptoms was October 02, 2019. 06:50 Method Of Arrival: Ambulatory vc 06:50 Acuity: JAMSHID 3 vc Triage Assessment: 06:56 General: Appears in no apparent distress. comfortable, Behavior is calm, cooperative, vc appropriate for age. Pain: Denies pain. Historical: - Allergies: 06:56 Dilantin; vc - PMHx: 06:56 Asthma; hyperthyroidism; Pneumonia; seasonal allergies; vc - PSHx: 06:56 Thyroidectomy; vc - Immunization history:: Adult Immunizations up to date. - Social history:: Smoking status: Patient denies any tobacco usage or history of. Screenin:56 Abuse screen: Denies threats or abuse. Nutritional screening: No deficits noted. vc Tuberculosis screening: No symptoms or risk factors identified. Fall Risk None identified. Assessment: 06:57 General: Appears in no apparent distress. comfortable, Behavior is calm, cooperative, vc appropriate for age. Pain: Denies pain. Neuro: Level of Consciousness is awake, obeys commands, Oriented to person, place, time, situation. Cardiovascular: Capillary refill < 3 seconds Patient's skin is warm and dry. Cardiovascular: Denies nausea, shortness of breath. Respiratory: Reports cough that is productive, Airway is patent Respiratory effort is even, unlabored, Respiratory pattern is tachypnea Breath sounds with wheezes bilaterally. Denies shortness of breath at rest. GI: No signs and/or symptoms were reported involving the gastrointestinal system. : No signs and/or symptoms were reported regarding the genitourinary system. EENT: Reports nasal discharge DRAINS DOWN THE BACK OF THROAT. Derm: Skin is intact, is healthy with good turgor, Skin temperature is warm. Musculoskeletal: Circulation, motion, and sensation intact. Range of motion: intact in all extremities. Vital Signs: 06:50 BP 121 / 76; Pulse 80; Resp 22; Temp 98.2; Pulse Ox 98% on R/A; Weight 90.72 kg; Height vc 5 ft. 8 in. (172.72 cm); Pain 0/10; 06:50 Body Mass Index 30.41 (90.72 kg, 172.72 cm) vc ED Course: 06:38 Patient arrived in ED. cl3 06:41 Lety Cali FNP-C [facility]. kb 06:41 Rajinder He MD is Attending Physician. kb 06:50 Elzbieta Oneill, RN is Primary Nurse. vc 06:55 Triage completed. vc 06:57 Arm band placed on. vc 06:57 Patient has correct armband on for positive identification. Bed in low position. Pulse vc ox on. NIBP on. 07:05 Chest Single View XRAY In Process Unspecified. EDMS 07:34 No provider procedures requiring assistance completed. Patient did not have IV access jr10 during this emergency room visit. Administered Medications: 07:05 Drug: Decadron 6 mg Route: PO; vc 07:33 Follow up: Response: No adverse reaction jr10 Outcome: 07:06 Discharge ordered by . kb 07:33 Discharged to home ambulatory. jr10 07:33 Condition: good 07:33 Discharge instructions given to patient, Instructed on discharge instructions, follow up and referral plans. Demonstrated understanding of instructions, follow-up care, medications, Prescriptions given X 1. 07:34 Patient left the ED. jr10 Addendum: 10/05/2019 14:37 Addendum: COVID-19 Result: Negative result given to RN to notify pt. Notified pt of s s negative COVID 19 swab results. Pt advised that even with a negative test result they should remain in isolation until symptom free for 3 days without medication. Pt also advised to return to the ED for worsening symptoms. Signatures: Dispatcher [employer] EDMS Lety Cali, GWENDOLYN ALLEN-Deloris Salas RN RN ss Roman Brown cl3 Elzbieta Oneill RN RN vc Jen Morton RN RN jr10
[2019-10-02] MEDS ORDERED: dexAMETHasone 4 MG TAB ONE ×2 (07:12)
--- NOTE | 2019-10-02 07:41 | RAD REPORT ---
EXAM DESCRIPTION: RAD - Chest Single View - 10/02/2019 7:04 am CLINICAL HISTORY: COUGH, positive COVID test COMPARISON: Portable July 04 TECHNIQUE: AP portable chest image was obtained 10/02/2019 7:04 am . FINDINGS: No focal consolidation. No convincing evidence for ground-glass opacification or other sig nificant infiltrative process. Heart and vasculature are normal. No measurable pleural effusion and n o pneumothorax. No acute bony abnormality seen. No acute aortic findings suspected. IMPRESSION: No acute cardiopulmonary process. No significant change from comparison. CT chest imaging is more sensitive for subtle ground-glass opacification that may indicate early COVI D-19 pneumonia. Follow-up CT imaging can be obtained as warranted.
[2019-10-02 07:42] VITALS: BP 121/76; TEMP 98.2; O2SAT 98
== END 2019-10-02 07:34 | disposition home or self-care (01) ==
LOC: ER 06:37
DX: J45.909 Unspecified asthma, uncomplicated (principal); Z88.8 Allergy status to other drugs, medicaments and biological substances; Z20.828 Contact with and (suspected) exposure to other viral communicable diseases
CPT/HCPCS: 71045; 99284; J8540; U0002

== ENCOUNTER 2020-04-18 04:13 | Emergency (ER) | payer SELFPAY ==
--- OUTSIDE RECORDS SUMMARY | 2020-04-18 04:16 | XMS REPORT | Continuity of Care Document ---
:1980 Author Organization [facility] t Address [address] [place] [address] [address] [place] [address] Care Team Providers Name Role Phone Doctor [...] ID 2018-11-09 2018-11-09 Orders Doctor [place] [id number] 00:00:00 00:00:00 Only UnassKENYATTA cartwright [id number] [place] [facility] [phone] [id number] 2018-11-08 2018-11-08 Telephone PHILLIP Avila [id number] 00:00:00 00:00:00 Marika Kim [id number] [place] [id number] [facility] [phone] [address] Results This patient has no known results.
--- NOTE | 2020-04-18 04:41 | ER ---
Nurse's Notes [facility] Name: Qamar Mayorga Age: 40 yrs Sex: Male : 1980 Arrival Date: 04/18/2020 Time: 04:17 Bed 6 Private MD: Diagnosis: COVID 19 Presentation: 04/18 04:28 Chief complaint: Patient states: I am having difficulty of breathing, night sweats rr5 started 2 days ago and it get worse. I tested COVID positive during the winter week. denies fever, nausea or vomiting. Coronavirus screen: Client denies travel out of the [place] in the last 14 days. shortness of breath, Client presents with at least one sign or symptom that may indicate coronavirus-19. Standard/surgical mask placed on the client. Provider contacted for isolation considerations. Client reports previous positive COVID test result. Ebola Screen: Patient negative for fever greater than or equal to 101.5 degrees Fahrenheit, and additional compatible Ebola Virus Disease symptoms Patient denies exposure to infectious person. Patient denies travel to an Ebola-affected area in the 21 days before illness onset. Initial Sepsis Screen: Does the patient meet any 2 criteria? No. Patient's initial sepsis screen is negative. Does the patient have a suspected source of infection? Yes: Productive cough/pneumonia. Risk Assessment: Do you want to hurt yourself or someone else? Patient reports no desire to harm self or others. Onset of symptoms was April 16, 2020. 04:28 Method Of Arrival: Ambulatory rr5 04:28 Acuity: JAMSHID 3 rr5 Historical: - Allergies: 04:31 Dilantin; rr5 - Home Meds: 04:31 albuterol sulfate 0.63 mg/3 mL Inhl nebu [Active]; Flonase 50 mcg/actuation Nasal spsn rr5 1 spray 2 times per day [Active]; levothyroxine oral [Active]; Zyrtec 10 mg Oral chew 1 tab once daily [Active]; - PMHx: 04:31 Asthma; hyperthyroidism; Pneumonia; seasonal allergies; rr5 - PSHx: 04:31 Thyroidectomy; rr5 - Immunization history:: Adult Immunizations unknown. - Social history:: Smoking status: unknown. Screenin:32 Abuse screen: Denies threats or abuse. Denies injuries from another. Nutritional rr5 screening: No deficits noted. Tuberculosis screening: No symptoms or risk factors identified. Fall Risk None identified. Total Mcgee Fall Scale indicates No Risk (0-24 pts). Assessment: 04:31 General: Appears in no apparent distress. uncomfortable, Behavior is calm, cooperative, rr5 appropriate for age, Reports night sweats. Pain: Denies pain. Neuro: Level of Consciousness is awake, alert, obeys commands, Oriented to person, place, time, situation. Cardiovascular: Capillary refill < 3 seconds Patient's skin is warm and dry. Respiratory: Reports shortness of breath cough that is Airway is patent Respiratory effort is even, unlabored, Respiratory pattern is regular, symmetrical. GI: No signs and/or symptoms were reported involving the gastrointestinal system. Patient currently denies nausea, vomiting. : No signs and/or symptoms were reported regarding the genitourinary system. EENT: No signs and/or symptoms were reported regarding the EENT system. Derm: Skin is intact, is healthy with good turgor, Skin temperature is warm. Musculoskeletal: Circulation, motion, and sensation intact. Capillary refill < 3 seconds. 04:33 Reassessment: seen and examined by provider at bedside. rr5 04:46 Reassessment: Patient appears in no apparent distress at this time. Patient is alert, rr5 oriented x 3, equal unlabored respirations, skin warm/dry/pink. discharge instruction given and explained without complaints made. Vital Signs: 04:28 BP 135 / 89; Pulse 81; Resp 20; Temp 98.1; Pulse Ox 93% ; Weight 81.65 kg; Height 5 ft. rr5 8 in. (172.72 cm); Pain 0/10; 04:47 BP 121 / 75; Pulse 80; Resp 19; Pulse Ox 94% ; rr5 04:28 Body Mass Index 27.37 (81.65 kg, 172.72 cm) rr5 ED Course: 04:17 Patient arrived in ED. cl3 04:21 Rober Tapia, PJ is Primary Nurse. rr5 04:28 Sebas Escobedo MD is Attending Physician. ps1 04:30 Triage completed. rr5 04:31 Arm band placed on right wrist. rr5 04:33 Patient has correct armband on for positive identification. Placed in gown. Bed in low rr5 position. Call light in reach. Pulse ox on. NIBP on. 04:38 No provider procedures requiring assistance completed. Patient did not have IV access rr5 during this emergency room visit. Administered Medications: No medications were administered Outcome: 04:40 Discharge ordered by . ps1 04:48 Discharged to home ambulatory. rr5 04:48 Condition: stable 04:48 Discharge instructions given to patient, Instructed on discharge instructions, follow up and referral plans. Demonstrated understanding of instructions, follow-up care. 04:48 Patient left the ED. rr5 Signatures: Sebas Escobedo MD MD ps1 Rober Tapia RN RN rr5 Roman Brown cl3 Corrections: (The following items were deleted from the chart) 04:33 04:28 Chief complaint: Patient states: I am having difficulty of breathing, bight rr5 sweats started 2 days ago and it get worse. I tested COVID positive during the winter week. denies fever, nausea or vomiting rr5
--- NOTE | 2020-04-18 04:41 | EDPHYS ---
Physician Documentation [facility] Name: Qamar Mayorga Age: 40 yrs Sex: Male : 1980 Arrival Date: 04/18/2020 Time: 04:17 Bed 6 Private MD: ED Physician Sebas Escobedo HPI: 04/18 04:36 This 40 yrs old Male presents to ER via Ambulatory with complaints of ps1 Breathing Difficulty, Sweats. 04:36 Known COVID postiive. Tested positive \R\ 10 days ago. Has a history of asthma. No ps1 hypoxia on evaluation but attests to shortness of breath. Thought he would be better by now. Has typical cough and shortness of breath associated with COVID. . Historical: - Allergies: 04:31 Dilantin; rr5 - Home Meds: 04:31 albuterol sulfate 0.63 mg/3 mL Inhl nebu [Active]; Flonase 50 mcg/actuation Nasal spsn rr5 1 spray 2 times per day [Active]; levothyroxine oral [Active]; Zyrtec 10 mg Oral chew 1 tab once daily [Active]; - PMHx: 04:31 Asthma; hyperthyroidism; Pneumonia; seasonal allergies; rr5 - PSHx: 04:31 Thyroidectomy; rr5 - Immunization history:: Adult Immunizations unknown. - Social history:: Smoking status: unknown. ROS: 04:36 Eyes: Negative for injury, pain, redness, and discharge, Neck: Negative for injury, ps1 pain, and swelling, Cardiovascular: Negative for chest pain, palpitations, and edema, MS/Extremity: Negative for injury and deformity, Skin: Negative for injury, rash, and discoloration, Neuro: Negative for headache, weakness, numbness, tingling, and seizure. 04:36 Constitutional: Positive for body aches, fatigue, malaise. 04:36 Respiratory: Positive for cough, shortness of breath. Exam: 04:36 Constitutional: This is a well developed, well nourished patient who is awake, alert, ps1 and in no acute distress. Head/Face: Normocephalic, atraumatic. Cardiovascular: Regular rate and rhythm. No gallops, murmurs, or rubs. Normal PMI, no JVD. No pulse deficits. Respiratory: Lungs have equal breath sounds bilaterally, clear to auscultation and percussion. No rales, rhonchi or wheezes noted. No increased work of breathing, no retractions or nasal flaring. Abdomen/GI: Soft, non-tender, with normal bowel sounds. No distension or tympany. No guarding or rebound. No evidence of tenderness throughout. MS/ Extremity: Pulses equal, no cyanosis. Neurovascular intact. Full, normal range of motion. Neuro: Awake and alert, GCS 15, oriented to person, place, time, and situation. Cranial nerves II-XII grossly intact. Sensory grossly intact. 04:36 Eyes: proptosis bilateral. . Vital Signs: 04:28 BP 135 / 89; Pulse 81; Resp 20; Temp 98.1; Pulse Ox 93% ; Weight 81.65 kg; Height 5 ft. rr5 8 in. (172.72 cm); Pain 0/10; 04:47 BP 121 / 75; Pulse 80; Resp 19; Pulse Ox 94% ; rr5 04:28 Body Mass Index 27.37 (81.65 kg, 172.72 cm) rr5 MDM: 04:39 Differential diagnosis: COVID pneumonia, URI, and others. Data reviewed: vital signs, ps1 nurses notes. Counseling: I had a detailed discussion with the patient and/or guardian regarding: the historical points, exam findings, and any diagnostic results supporting the discharge/admit diagnosis, to return to the emergency department if symptoms worsen or persist or if there are any questions or concerns that arise at home. 04:40 Patient medically screened. ps1 Administered Medications: No medications were administered Disposition: 04/18/20 04:40 Discharged to Home. Impression: COVID 19. - Condition is Stable. - Discharge Instructions: COVID-19. - Medication Reconciliation Form, Thank You Letter, Antibiotic Education, Prescription Opioid Use form. - Follow up: Private Physician; When: As needed; Reason: Continuance of care. Follow up: Emergency Department; When: As needed; Reason: Trouble breathing, Worsening of condition. - Problem is an ongoing problem. - Symptoms are unchanged. Signatures: Sebas Escobedo MD MD ps1 Rober Tapia RN RN rr5 Corrections: (The following items were deleted from the chart) 04:48 04:40 04/18/2020 04:40 Discharged to Home. Impression: COVID 19. Condition is Stable. rr5 Forms are Medication Reconciliation Form, Thank You Letter, Antibiotic Education, Prescription Opioid Use. Follow up: Private Physician; When: As needed; Reason: Continuance of care. Follow up: Emergency Department; When: As needed; Reason: Trouble breathing, Worsening of condition. Problem is an ongoing problem. Symptoms are unchanged. ps1
[2020-04-18 05:23] VITALS: TEMP 98.1
[2020-04-18 05:25] VITALS: BP 121/75; O2SAT 94
== END 2020-04-18 04:48 | disposition home or self-care (01) ==
LOC: ER 04:13
DX: U07.1 COVID-19 (principal); J45.909 Unspecified asthma, uncomplicated; Z88.8 Allergy status to other drugs, medicaments and biological substances
CPT/HCPCS: 99283

== ENCOUNTER 2021-01-10 04:39 | Emergency (ER) | payer OTHER, SELFPAY ==
--- OUTSIDE RECORDS SUMMARY | 2021-01-10 04:43 | XMS REPORT | Continuity of Care Document ---
:1980 Author Organization [facility] t Address [address] [place] [address] Dr. [address]ap[address]. [address] [place] [address] Care Team Providers Name Role Phone Francisco Castle DO Attending Clinician Mehdi OLIVA E Attending Clinician Sravan Attending Clinician Michael BOWIE Attending Clinician Krystle BOWIE Attending Clinician Doctor Unassigned, Name Attending Clinician Unavailable RADIOLOGY Attending Clinician Unavailable [place] BOWIE Attending Clinician Krystle BOWIE Admitting Clinician Payers Payer Name Policy Type Policy Number Effective Date Expiration Date S ource Problems Condition Condition Condition Status Onset Resolution Last Treating Co mments Source Name Details Category Date Date Treatment Clinician Date Lower Lower Disease Active Univers respirator respirator 3-01 it y of y tract y tract 00:00: [place] infection infection 00 Medi jenna due to due to Branch COVID-19 COVID-19 virus virus Postsurgic Postsurgic Disease Active U nivers al al 5-02 ity of hypothyro[place]othyro[place] dis[place] dism Medical Branch S/P S/P Disease Active Univers thyroidect thyroidect 4-21 it y of cintia cintia 00:00: [place] Medical Branch Hyperthyro Hyperthyro Disease Active 2015-02 U nivers idism idism 1- ity of 00:00: [place] 00 Medical Branch Allergies, Adverse Reactions, Alerts Allergy Allergy Status Severity Reaction(s) Onset Inactive Treating Comm ents Source Name Type Date Date Clinician PHENYTOI DRUG Active Hives Univers N SODIUM INGREDI 7-12 ity of EXTENDED 00:00: [place] 00 Medical Branch Phenytoi Propensi Active Hives Univer s n Sodium ty to 7-12 ity of Extended adverse 00:00: [place] reaction 00 Medical s Branch Social History Social Habit Start Date Stop Date Quantity Comments Source Exposure to Not sure [facility] SARS-CoV-2 [place] Medical (event) Branch Alcohol intake 2020-04-20 2020-04-20 Current University of 00:00:00 00:00:00 non-drinker of [facility] alcohol Branch (finding) Tobacco use and 2020-04-20 2020-04-20 Never used Universit y of exposure 00:00:00 00:00:00 [facility] Sex Assigned At [birth year] Universit y of 00:00:00 00:00:00 [facility] Smoking Status Start Date Stop Date Source Never smoker [facility] [place] Medical Branch Medications Ordered Filled Start Stop Current Ordering Indication Dosage Frequency Signature Comments Components Source Medication Medication Date Date Medication? Clinician (SIG) Name Name methylPREDN Yes [id number] Take by Univers ISolone 4 3-09 mouth ity of mg tablets 00:00: [place]INSTRU [place] 00 CTIONS. Medical follow Branch package directions methylPREDN 2020-0 Yes [id number] Take by Univers ISolone 4 3-09 mouth ity of mg tablets 00:00: [place]-INSTRU [place] 00 CTIONS. Medical follow Branch package directions methylPREDN 2020-0 Yes [id number] Take by Univers ISolone 4 3-09 mouth ity of mg tablets 00:00: [place]-INSTRU [place] 00 CTIONS. Medical follow Branch package directions methylPREDN 0 Yes [id number] Take by Univers ISolone 4 3-09 mouth ity of mg tablets 00:00: [place]-INSTRU [place] 00 CTIONS. Medical follow Branch package directions budesonide- Yes 2{puff} Inhale 2 Univers formoterol 3-08 Puffs 2 ity of (SYMBICORT) 22:37: (two) [place] 160-4.5 15 times Medical mcg/actuati daily. Branch on inhaler budesonide- Yes 2{puff} Inhale 2 Univers formoterol 3-08 Puffs 2 ity of (SYMBICORT) 22:37: (two) [place] 160-4.5 15 times Medical mcg/actuati daily. Branch on inhaler budesonide- Yes 2{puff} Inhale 2 Univers formoterol 3-08 Puffs 2 ity of (SYMBICORT) 22:37: (two) [place] 160-4.5 15 times Medical mcg/actuati daily. Branch on inhaler budesonide- Yes 2{puff} Inhale 2 Univers formoterol 3-08 Puffs 2 ity of (SYMBICORT) 22:37: (two) [place] 160-4.5 15 times Medical mcg/actuati daily. Branch on inhaler dexamethaso Yes 6mg 6 mg, IV Un gareth ne 3-06 Piggyback, ity of (DECADRON 15:00: DAILY, [place] PHOSPHATE) 00 First dose Med ical 6 mg in (after Branch NaCl 0.9% last (NS) 50 mL modificati piggyback on) on 04/25/20 at 0900, Until Discontinu ed, 50 mL sodium Yes 1{spray 1 [place], [facility] ers chloride 3-05 } Nasal, ity of (OCEAN MIST 17:30: PRN, [place] NASAL) 0.65 50 Starting Medi jenna % nasal Fri 04/24/20 Branch spray 1 at 1130, [place] Until Discontinu ed, Routine, Surgery/Pr ocedure, Fro irritation from High Flow Nasal Cannula azithromyci No 250mg 250 mg, U nivers n 3-04 03-06 Oral, ity of (ZITHROMAX) 15:00: 14:00 DAILY, 3 [place] tablet 250 00 :00 doses, Medical mg First dose Branch on [place] 04/23/20 at 0900, Last dose on 04/25/20 at 0900, [place]
Re ason for Anti-Infec tive: Empiric Therapy for Suspected Infection< br>Empiric Therapy Site: Respirator y
Durat ion of therapy: 72 hours sennosides Yes 8.6mg 8.6 mg, Uni vers (SENOKOT) 303 Oral, BID, ity of tablet 8.6 17:30: First dose [place] mg 00 on Mon Medical 04/22/20 at Branch 1130, Until Discontinu ed, Routine Polyethylen 0 Yes 17g 17 g, [facility] Glycol 04-22 Oral, BID, ity o f 3350 17:30: First dose [place] (MIRALAX) 00 on Mon Medical powder 17 g 04/22/20 at [facility] 1130, Until Discontinu ed, Routine bisacodyL Yes 10mg 10 mg, [facility] (DULCOLAX) 04-22 Rectal, ity of suppository 17:20: QDAILYPRN, [place] 10 mg 14 Starting Medical 04/22/20 Branch at 1120, Until Discontinu ed, Routine, Constipati on unresolved by oral medication s codeine-gua Yes 10mL 10 mL, [facility] ers ifenesin 04-22 Oral, ity of (ROBITUSSIN 14:50: Q4HPRN, Darius as AC) 10-100 40 Starting Medic al mg/5 mL [facility] 04/22/20 Branch solution 10 at 0850, mL Until Discontinu ed, Routine, Cough ergocalcife Yes [id number] 50,000 Un gareth rol 04-21 Units, ity of (vitamin 15:00: Oral, [place] d2) 00 QWEEKLY, Medical (CALCIFEROL First dose Br anch ) capsule on Mon 50,000 04/21/20 at Units 0900, Until Discontinu ed, Routine levothyroxi Yes 137ug 137 mcg, U nivers ne 04-21 Oral, ity of (SYNTHROID) 12:00: QAM-0600, [place] tablet 137 00 First dose Med ical mcg on Mon Branch 04/21/20 at 0600, Until Discontinu ed ascorbic Yes 500mg 500 mg, Unive rs acid 04-21 Oral, BID, ity of (vitamin C) 02:00: First dose [place] (VITAMIN C) 00 on Mon Medica l tablet 500 04/20/20 at Bran ch mg 2000, Until Discontinu ed, Routine budesonide- 2021-0 Yes 2{puff} 2 Puff, Univers formoteroL 04-21 Inhalation ity of (SYMBICORT) 02:00: , BID, [place] 160-4.5 00 First dose Medica l mcg/actuati on Mon on inhaler 04/20/20 at 2 Puff 2000, Until Discontinu ed, Routine enoxaparin 2020-0 Yes 40mg 40 mg, Unive rs (LOVENOX) 04-20 Subcutaneo ity of injection 23:00: [place], DAILY, [place] 40 mg 00 First dose Medical on Mon Branch 04/20/20 at 1700, Until Discontinu ed, Routine ondansetron Yes 4mg 4 mg, Slow Univers (ZOFRAN 04-20 IV Push, ity of (PF)) 19:01: Q6HPRN, [place] injection 4 50 Starting Medi jenna mg [facility] 04/20/20 Branch at 1301, Until Discontinu ed, Routine, Nausea and Vomiting (N/V) cefTRIAXone Yes 1000mg 1,000 mg, Univers (ROCEPHIN) 04-20 IV ity of 1,000 mg in 18:45: Piggyback, [place] NaCl 0.9% 00 Q24H ABX, Medic al (NS) 50 mL First dose [facility] MINI-BAG on Mon04/20/20 at 1245, Until Discontinu ed, 50 mL
R radha for Anti-Infec tive: Empiric Therapy for Suspected Infection< br>Empiric Therapy Site: Respirator y
Durat ion of therapy: 72 hours iohexol 0 2020- No 100mL 100 mL, Unive rs (OMNIPAQUE 04-20 Intravenou it y of 350 18:05: 18:05 s, ONCE, 1 [place] BULK-100 00 :00 dose, Mon Medica l mL) 04/20/20 at Branch injection 1230, 100 mL Routine zinc 0 Yes 220mg 220 mg, Univers sulfate 04-20 Oral, ity of (ORAZINC) 18:00: DAILY, [place] capsule 220 00 First dose Me dical mg on Mon Branch 04/20/20 at 1200, Until Discontinu ed, Routine thiamine Yes 100mg 100 mg, Unive rs (VITAMIN 3 Oral, ity of B1) tablet 18:00: DAILY, [place] 100 mg 00 First dose Medical on Mon Branch 04/20/20 at 1200, Until Discontinu ed, Routine azithromyci 2020- No 500mg 500 mg, U nivers n 04-20 Oral, ity of (ZITHROMAX) 17:45: 14:52 DAILY, 3 [place] tablet 500 00 :00 doses, Medical mg First dose Branch on Mon04/20/20 at 1145, Last dose on Mon04/22/20 at 0900, G[place]
Re ason for Anti-Infec tive: Empiric Therapy for Suspected Infection< br>Empiric Therapy Site: Skin / Soft tissue
Duration of therapy: 72 hours acetaminoph Yes 650mg 650 mg, Un gareth en 04-20 Oral, ity of (TYLENOL) 17:41: Q6HPRN, [place] tablet 650 38 Starting Medic al mg 04/20/20 Branch at 1141, Until Discontinu ed, Routine, Pain (scale 1-3) ibuprofen 2020- No 800mg 800 mg, Uni vers (IBU) 04-20 Oral, ity of tablet 800 17:00: 15:56 ONCE, 1 [place] as mg 00 :00 dose, [facility] Medical 04/20/20 at Branch 1100, [place] budesonide- 2018-02 Yes 2{puff} Inhale 2 Univers formoterol 1-25 Puffs 2 ity of (SYMBICORT) 22:32: (two) [place] 160-4.5 24 times Medical mcg/actuati daily. Branch on inhaler predniSONE 2018-02 Yes [id number] 40mg Take 2 U nivers 20 mg 1-25 tablets by ity of tablet 00:00: mouth [place] 00 daily. Medical Branch albuterol 2018-02 Yes [id number] 2{puff} Inhale 2 Univers 90 1-25 Puffs ity of mcg/actuati 00:00: every 4 [place] as on inhaler 00 (four) Medical hours as Branch needed for Wheezing or Shortness of Breath. azithromyci 2018-02 Yes [id number] 250mg Take 1 Univers n 1-25 tablet by ity of (ZITHROMAX 00:00: mouth [place] Z-GREG) 250 00 SEE-INSTRU Med ical mg tablet CTIONS. Branch Take 500 mg day 1, then 250 mg days 2 to 5. benzonatate 2018-02 Yes [id number] 100mg Take 1 Univers 100 mg 1-25 capsule by ity of capsule 00:00: mouth 3 [place] 00 (three) Medical times Branch daily as needed for Cough. predniSONE 2018-02- No [id number] 40mg Take 2 Univers 20 mg -25 03-08 tablets by ity of tablet 00:00: 00:00 mouth [place] 00 :00 daily. Medical Branch albuterol 2018-02- No [id number] 2{puff} Inhale 2 Univers 90 1-25 03-08 Puffs ity of mcg/actuati 00:00: 00:00 every 4 [place] on inhaler 00 :00 (four) Medical hours as Branch needed for Wheezing or Shortness of Breath. azithromyci 2018-02- No [id number] 250mg Take 1 Univers n -25 03-08 tablet by ity of (ZITHROMAX 00:00: 00:00 mouth [place] Z-GREG) 250 00 :00 SEE-INSTRU Med ical mg tablet CTIONS. Branch Take 500 mg day 1, then 250 mg days 2 to 5. benzonatate 2018-02- No [id number] 100mg Take 1 Univers 100 mg 1-25 03-08 capsule by ity of capsule 00:00: 00:00 mouth 3 [place] 00 :00 (three) Medical times Branch daily as needed for Cough. budesonide- Yes 2{puff} Inhale 2 Univers formoterol 8-07 Puffs 2 ity of (SYMBICORT) 13:22: (two) [place] 160-4.5 24 times Medical mcg/actuati daily. Branch on inhaler budesonide- Yes 2{puff} Inhale 2 Univers formoterol 8-07 Puffs 2 ity of (SYMBICORT) 13:22: (two) [place] 160-4.5 24 times Medical mcg/actuati daily. Branch on inhaler Levothyroxi Yes 137ug Take 137 U nivers ne 137 mcg 8-07 mcg by ity of Cap 00:00: mouth [place] 00 daily. Medical Branch Levothyroxi Yes 137ug Take 137 U nivers ne 137 mcg 8-07 mcg by ity of Cap 00:00: mouth [place] 00 daily. Medical Branch Levothyroxi Yes 137ug Take 137 U nivers ne 137 mcg 8-07 mcg by ity of Cap 00:00: mouth [place] 00 daily. Medical Branch Levothyroxi Yes 137ug Take 137 U nivers ne 137 mcg 8-07 mcg by ity of Cap 00:00: mouth [place] 00 daily. Medical Branch Levothyroxi Yes 137ug Take 137 U nivers ne 137 mcg 8-07 mcg by ity of Cap 00:00: mouth [place] 00 daily. Medical Branch Levothyroxi Yes 137ug Take 137 U nivers ne 137 mcg 8-07 mcg by ity of Cap 00:00: mouth [place] 00 daily. Medical Branch Levothyroxi Yes 137ug Take 137 U nivers ne 137 mcg 8-07 mcg by ity of Cap 00:00: mouth [place] 00 daily. Medical Branch oseltamivir 2016-02 Yes 75mg Take 1 Univ ers (TAMIFLU) 2-26 capsule by ity of 75 mg 00:00: mouth 2 [place] capsule 00 (two) Medical times Branch daily. oseltamivir 2016-02 Yes 75mg Take 1 Univ ers (TAMIFLU) 2-26 capsule by ity of 75 mg 00:00: mouth 2 [place] capsule 00 (two) Medical times Branch daily. ALBUTEROL Yes 2.5mg Inhale 3 Uni vers 2.5 mg /3 5-20 mL every 6 ity of mL (0.083 00:00: (six) [place] %) 00 hours as Medical nebulizer needed for Bran ch solution Wheezing or Shortness of Breath. May also nebulize one extra every 6 hours. ALBUTEROL Yes 2{puff} Inhale 2 U nivers 90 5-20 Puffs ity of mcg/actuati 00:00: every 4 [place] as on inhaler 00 (four) Medical hours as Branch needed for Wheezing or Shortness of Breath. ALBUTEROL Yes 2.5mg Inhale 3 Uni vers 2.5 mg /3 5-20 mL every 6 ity of mL (0.083 00:00: (six) [place] %) 00 hours as Medical nebulizer needed for Bran ch solution Wheezing or Shortness of Breath. May also nebulize one extra every 6 hours. ALBUTEROL 2017-0 Yes 2{puff} Inhale 2 U nivers 90 5-20 Puffs ity of mcg/actuati 00:00: every 4 [place] as on inhaler 00 (four) Medical hours as Branch needed for Wheezing or Shortness of Breath. ALBUTEROL 2017-0 Yes 2.5mg Inhale 3 Uni vers 2.5 mg /3 5-20 mL every 6 ity of mL (0.083 00:00: (six) [place] %) 00 hours as Medical nebulizer needed for Bran ch solution Wheezing or Shortness of Breath. May also nebulize one extra every 6 hours. ALBUTEROL 2017-0 Yes 2{puff} Inhale 2 U nivers 90 5-20 Puffs ity of mcg/actuati 00:00: every 4 [place] as on inhaler 00 (four) Medical hours as Branch needed for Wheezing or Shortness of Breath. ZITHROMAX 2017-0 Yes 250mg Take 1 Unive rs Z-GREG 250 5-20 tablet by ity o f mg dose 00:00: mouth [place] pack 00 SEE-INSTRU Medical CTIONS. Branch Take 500 mg day 1, then 250 mg days 2 to 5. ALBUTEROL 2016-0 Yes 2.5mg Inhale 3 Uni vers 2.5 mg /3 5-20 mL every 6 ity of mL (0.083 00:00: (six) [place] %) 00 hours as Medical nebulizer needed for Bran ch solution Wheezing or Shortness of Breath. May also nebulize one extra every 6 hours. ALBUTEROL 2016-0 Yes 2{puff} Inhale 2 U nivers 90 5-20 Puffs ity of mcg/actuati 00:00: every 4 [place] on inhaler 00 (four) Medical hours as Branch needed for Wheezing or Shortness of Breath. ZITHROMAX 2017-0 Yes 250mg Take 1 Unive rs Z-GREG 250 5-20 tablet by ity o f mg dose 00:00: mouth [place] pack 00 SEE-INSTRU Medical CTIONS. Branch Take 500 mg day 1, then 250 mg days 2 to 5. ALBUTEROL 2017-0 Yes 2.5mg Inhale 3 Uni vers 2.5 mg /3 5-20 mL every 6 ity of mL (0.083 00:00: (six) [place] %) 00 hours as Medical nebulizer needed for Bran ch solution Wheezing or Shortness of Breath. May also nebulize one extra every 6 hours. ALBUTEROL Yes 2{puff} Inhale 2 U nivers 90 5-20 Puffs ity of mcg/actuati 00:00: every 4 [place] on inhaler 00 (four) Medical hours as Branch needed for Wheezing or Shortness of Breath. ALBUTEROL Yes 2.5mg Inhale 3 Uni vers 2.5 mg /3 5-20 mL every 6 ity of mL (0.083 00:00: (six) [place] %) 00 hours as Medical nebulizer needed for Bran ch solution Wheezing or Shortness of Breath. May also nebulize one extra every 6 hours. ALBUTEROL Yes 2{puff} Inhale 2 U nivers 90 5-20 Puffs ity of mcg/actuati 00:00: every 4 [place] on inhaler 00 (four) Medical hours as Branch needed for Wheezing or Shortness of Breath. ALBUTEROL Yes 2.5mg Inhale 3 Uni vers 2.5 mg /3 5-20 mL every 6 ity of mL (0.083 00:00: (six) [place] %) 00 hours as Medical nebulizer needed for Bran ch solution Wheezing or Shortness of Breath. May also nebulize one extra every 6 hours. ALBUTEROL Yes 2{puff} Inhale 2 U nivers 90 5-20 Puffs ity of mcg/actuati 00:00: every 4 [place] on inhaler 00 (four) Medical hours as Branch needed for Wheezing or Shortness of Breath. FLUTICASONE Yes Inhale Univ ers /VILANTEROL 4-22 daily. ity of (BREO 16:25: [place] ELLIPTA 10 Medical INHALE) Branch FLUTICASONE Yes Inhale Univ ers /VILANTEROL 4-22 daily. ity of (BREO 16:25: [place] ELLIPTA 10 Medical INHALE) Branch meclizine Yes TAKE 1 Univer s (ANTIVERT) 8-21 TABLET BY ity of 25 mg 00:00: MOUTH [place] tablet 00 EVERY 8 Medical HOURS Branch NEEDED meclizine 2016-0 Yes TAKE 1 Univer s (ANTIVERT) 8-21 TABLET BY ity of 25 mg 00:00: MOUTH [place] tablet 00 EVERY 8 Medical HOURS Branch NEEDED Vital Signs Vital Name Observation Time Observation Value Comments Source Systolic blood 2020-04-27 21:00:00 107 [facility]Hg[facility] Diastolic blood 2020-04-27 21:00:00 66 mm[facility]Hg[facility] Body temperature 2020-04-27 21:00:00 36.67 C[place] [facility] Heart rate 2020-04-27 10:01:00 64 /min [facility] Respiratory rate 2020-04-27 10:01:00 18 /min [facility] Oxygen saturation in 2020-04-27 10:01:00 97 /min [facility] Arterial blood by [facility] Pulse oximetry [place] Body height 2020-04-20 17:45:00 172.7 cm [facility] Body weight 2020-04-20 17:45:00 79.47 kg [facility] BMI 2020-04-20 17:45:00 26.64 kg/m2 [facility] Procedures Procedure Date / Time Performing Clinician Source Performed BASIC METABOLIC PANEL 2020-04-27 11:39:00 Drake Shannan [facility] (NA, K, CL, CO2, [facility] GLUCOSE, BUN, CREATININE, [place]) CBC WITH DIFF 2020-04-27 11:39:00 Drake [facility] BASIC METABOLIC PANEL 2020-04-26 10:47:00 Funk [facility] (NA, K, CL, CO2, [facility] GLUCOSE, BUN, CREATININE, CA) CBC WITH DIFF 2020-04-26 10:47:00 Funk [facility] C-REACTIVE PROTEIN 2020-04-23 11:18:00 Abdoulaye Dalton [facility] COMP. METABOLIC PANEL 2020-04-23 11:18:00 Abdoulaye Dalton [facility] ([id number]) Medical Branch CBC WITH DIFF 2020-04-23 11:18:00 [facility] 2020-04-23 11:18:[address] [facility] POCT GLUCOSE (AUTOMATED) 2020-04-22 17:38:[address] [facility] THYROID STIMULATING 2020-04-21 09:59:00 Abdoulaye Dalton [facility] HORMONE [facility] BASIC METABOLIC PANEL 2020-04-21 09:59:00 Abdoulaye Dalton [facility] (NA, K, CL, CO2, Medical Branch GLUCOSE, BUN, CREATININE, CA) CBC WITH DIFF 2020-04-21 09:59:[address] [facility] URINALYSIS 2020-04-21 03:16:00 Michael Oscar [facility] PNEUMOCOCCAL ANTIGEN 2020-04-21 03:16:00 Krystle Abdoulaye [facility] LACTATE DEHYDROGENASE 2020-04-20 18:48:[address] [facility] C-REACTIVE PROTEIN 2020-04-20 18:48:00 Krystle [facility] VITAMIN D, 25-OH 2020-04-20 18:48:00 Krystle [facility] PROCALCITONIN 2020-04-20 18:48:[address] [facility] CT CHEST PULMONARY 2020-04-20 18:15:58 Krystle Abdoulaye [facility] ANGIOGRAM [facility] Branch HB ECG ROUTINE & RHYTHM 2020-04-20 16:14:47 Oscar Rodriguez [facility] STRIP [facility] Branch XR CHEST 1 VW 2020-04-20 16:14:07 Oscar oRdriguez [facility] BLOOD CULTURE SCREEN 2020-04-20 16:05:00 Oscar Rodriguez [facility] COVID-19 (ID NOW RAPID 2020-04-20 16:05:[address] [facility] TESTING) [facility] Branch BLOOD CULTURE SCREEN 2020-04-20 16:04:00 Oscar Rodriguez [facility] CREATINE KINASE 2020-04-20 16:04:00 Abdullah, [facility] FERRITIN SERUM 2020-04-20 [facility] 2020-04-20 16:04:00 Michael [facility] [place] [facility] HEPATIC FUNCTION PANEL 2020-04-20 16:04:[address] [facility] ([id number]) (ALB,T.PRO,BILI [facility] Branch T,BU/BC,ALT,AST,ALK PHOS) BASIC METABOLIC PANEL 2020-04-20 16:04:00 Oscar Rodriguez [facility] (NA, K, CL, CO2, Medical Branch GLUCOSE, BUN, CREATININE, CA) CBC WITH DIFF 2020-04-20 16:04[facility] 2020-04-20 16:04:00 [facility] PROTHROMBIN TIME / INR 2020-04-20 16:04:00 Michael Oscar [facility] D-DIMER 2020-04-20 16:04:[address] [facility] ACTIVATED PARTIAL 2020-04-20 16:04:00 Michael [facility] THRMPLAS ROBERTO [facility] N-TERMINAL PRO-BNP 2020-04-20 16:04:00 Oscar Rodriguez [facility] NOTICE OF PRIVACY 2020-04-20 15:19:40 Doctor Unassigned, No [facility] PRACTICES Name [facility] CONSENT/REFUSAL FOR 2020-04-20 15:19:24 Doctor Unassigned, No [facility] DIAGNOSIS AND TREATMENT Name [facility] CONSENT/REFUSAL FOR 2018-11-09 20:22:33 Doctor Unassigned, No [facility] DIAGNOSIS AND TREATMENT Name [facility] ASSIGNMENT OF BENEFITS 2018-11-09 20:22:19 Doctor Unassigned, No [facility] Encounters Start End Encounter Admission Attending Care Care Encounter Source Date/Time Date/Time Type Type Clinicians Facility Department ID 2020-12-20 Emergency [facility] [id number] Univers 02:01:55 ity [facility] 2020-05-07 2020-05-07 Patient Tin [facility] [id number] Univers 00:00:00 00:00:00 Outreach David PRIMARY [id number] i ty [place] [id number] [id number] Mo dical 388 Branch 2020-04-29 2020-04-29 Patient Kylie Harding [id number] Univers 00:00:00 00:00:00 Outreach Jacey Grovery [id number] i [place] [id number] [phone] [facility] 403 Branch 2020-04-28 2020-04-28 Transition Justin Hinson [id number] Univers 00:00:00 00:00:00 of Care Saida Slater [id number] [place]y [place] [id number] [id number] [facility] 403 Branch 2020-04-20 2020-04-27 Hospital Oscar Rodriguez [facility] [id number] Univers 09:36:00 16:20:00 Encounter Abdoulaye Dalton [id number] ity of [place] [id number] [id number] [facility] 080 Branch 2020-04-20 2020-04-20 Orders Doctor CONRAD [id number] Univers 00:00:00 00:00:00 Only Unassigned, KENYATTA [id number] ity of [place] [facility] [id number] Darius as [id number] [facility] 009 Branch 2019-08-20 2019-08-20 Outpatient [facility] [id number] Univers 13:30:00 13:30:00 [id number] ity of [facility] 2019-08-20 2019-08-20 Outpatient R RADIOLOGY [facility] [id number] Univers 00:00:00 00:00:00 ity of [facility] 2018-11-09 2018-11-09 Orders Doctor [place] [id number] 00:00:00 00:00:00 Only Unassigned, K[place] [id number] [place] [facility] [id number] [id number] 009 2018-11-09 2018-11-09 Orders Doctor [place] [id number] Univers 00:00:00 00:00:00 Only Unassigned, KENYATTA [id number] ity of [place] [facility] [id number] Darius as [phone] [facility] 009 Branch 2018-11-08 2018-11-08 Telephone [place], [facility] [id number] 00:00:00 00:00:00 Marika Kim [id number] [place] [id number] Professio [phone] nal 220 Building 2018-11-08 2018-11-08 Telephone [place], [facility] [id number] Univers 00:00:00 00:00:00 Mariak Marston [id number] i ty [place] [id number] Profess[place] [phone] Me dical [facility] [address] [facility] Results Test Description Test Time Test Comments Results Result Comments Source BASIC METABOLIC PANEL (NA, K, CL, CO2, GLUCOSE, BUN, 2020-04 12:18:34 CREATININE, CA) Test Item Value Reference Range Interpretation Comme nts NA (test code = 2788798579) 137 mmol/L 135-145 K (test code = 6049510278) 4.0 mmol/L 3.5-5.0 CL (test code = 7118803467) 102 mmol/L 98-108 CO2 TOTAL (test code = 8774530241) 30 mmol/L 23-31 AGAP (test code = 7471406391) 2-16 BUN (test code = 4717343727) 22 mg/dL 7-23 GLUCOSE (test code = 1551334771) 102 mg/dL 70-110 CREATININE (test code = 0.69 mg/dL 0.60-1.25 9904806857) CALCIUM (test code = 7009527714) 8.5 mg/dL 8.6-10.6 L eGFR Calculation (Non- mL/min/1.73m2 [place]) (test code = 4283493860) eGFR Calculation ( mL/min/1.73m2 Angolan) (test code = 9804453813) RUDI (test code = RUDI) Association of Glomerular Filtration Rate (GFR) and Staging of Kidney Disease* + +-------- + ------+| GFR (mL/min/1.73 m2) ?| With Kidney Damage ?| ?Without Kidney Damage+ +-- + +| ?>90 ?| ?Stage one ?| ? Normal ?+ +------- + -------+| ?60-89 ?| ?Stage two ?| ? Decreased GFR ? + +-------- + ------+| ?30-59 ?| ?Stage three ?| ? Stage three ? + +-------- + ------+| ?15-29 ?| ?Stage four ? | ? Stage four ?+ +------- + -------+| ?<15 (or dialysis) ? ?| ?Stage five ? | ? Stage five ?+ +------- + -------+ *Each stage assumes the associated GFR level has been in effect for at least three months. ?Stages 1 to 5, with or without kidney disease, indicate chronic kidney disease. Notes: Determination of stages one and two (with eGFR >59mL/min/1.73 m2) requires estimation of kidney damage for at least three months as defined by structural or functional abnormalities of the kidney, manifested by either:Pathological abnormalities or Markers of kidney damage (including abnormalities in the composition of the blood or urine or abnormalities in imaging tests). Lab Interpretation (test code = Abnormal 18891-5) [facility] [id number] 12:08:31 Test Item Value Reference Range Interpretation Comments WBC (test code = See_Comment H [Automated 7906-2) message] The system which generated this result transmit kendal reference range : 4.20 - 10.70 10*3/?L. The reference range was not used to interpret this result as normal/abnormal . RBC (test code = See_Comment [Automated 049-8) message] The system which generated this result transmit kendal reference range : 4.26 - 5.52 10*6/?L. The reference range was not used to interpret this result as normal/abnormal . HGB (test code = 14.3 g/dL 12.2-16.4 718-7) HCT (test code = 40.6 % 38.4-49.3 4544-3) MCV (test code = 83.4 fL 81.7-95.6 787-2) MCH (test code = 29.4 pg 26.1-32.7 785-6) MCHC (test code = 35.2 g/dL 31.2-35.0 H 786-4) RDW-SD (test code = 39.8 fL 38.5-51.6 81101-7) RDW-CV (test code = 13.2 % 12.1-15.4 788-0) PLT (test code = See_Comment H [Automated 777-3) message] The system which generated this result transmit kendal reference range : 150 - 328 10*3/ ?L. The reference range was not u sed to interpret th is result as normal/abnormal . MPV (test code = 9.9 fL 9.8-13.0 37640-9) NRBC/100 WBC (test See_Comment [Automat ed code = 7596436524) message] The system which generated this result transmit kendal reference range : 0.0 - 10.0 /100 WBCs. The reference range was not used to interpret this result as normal/abnormal . NRBC x10^3 (test code <0.01 See_Comment [Auto mated = 9958338593) message] The system which generated this result transmit kendal reference range : 10*3/?L. The reference range was not used to interpret this result as normal/abnormal . GRAN MAT (NEUT) % 82.9 % (test code = 770-8) IMM GRAN % (test code 3.60 % = 4965961317) LYMPH % (test code = 8.3 % 736-9) MONO % (test code = 4.4 % 5905-5) EOS % (test code = 0.5 % 713-8) BASO % (test code = 0.3 % 706-2) GRAN MAT x10^3(ANC) 21.94 10*3/uL 1.99-6.95 H (test code = 5515103799) IMM GRAN x10^3 (test 0.95 10*3/uL 0.00-0.06 H code = 4519838083) LYMPH x10^3 (test code 2.21 10*3/uL 1.09-3.23 = 731-0) MONO x10^3 (test code 1.16 10*3/uL 0.36-1.02 H = 742-7) EOS x10^3 (test code = 0.13 10*3/uL 0.06-0.53 711-2) BASO x10^3 (test code 0.09 10*3/uL 0.01-0.09 = 704-7) Lab Interpretation Abnormal (test code = 27397-0) [facility] WITH [id number] 12:11:01 Test Item Value Reference Range Interpretation Comments WBC (test code = See_Comment H [Automated 1723-2) message] The system which generated this result transmit kendal reference range : 4.20 - 10.70 10*3/?L. The reference range was not used to interpret this result as normal/abnormal . RBC (test code = See_Comment [Automated 919-8) message] The system which generated this result transmit kendal reference range : 4.26 - 5.52 10*6/?L. The reference range was not used to interpret this result as normal/abnormal . HGB (test code = 14.4 g/dL 12.2-16.4 718-7) HCT (test code = 43.5 % 38.4-49.3 4544-3) MCV (test code = 85.8 fL 81.7-95.6 787-2) MCH (test code = 28.4 pg 26.1-32.7 785-6) MCHC (test code = 33.1 g/dL 31.2-35.0 786-4) RDW-SD (test code = 40.9 fL 38.5-51.6 17812-4) RDW-CV (test code = 13.2 % 12.1-15.4 788-0) PLT (test code = See_Comment [Automated 777-3) message] The system which generated this result transmit kendal reference range : 150 - 328 10*3/ ?L. The reference range was not u sed to interpret th is result as normal/abnormal . MPV (test code = 10.9 fL 9.8-13.0 83539-6) NRBC/100 WBC (test See_Comment [Automat ed code = 3449553252) message] The system which generated this result transmit kendal reference range : 0.0 - 10.0 /100 WBCs. The reference range was not used to interpret this result as normal/abnormal . NRBC x10^3 (test code <0.01 See_Comment [Auto mated = 7119514765) message] The system which generated this result transmit kendal reference range : 10*3/?L. The reference range was not used to interpret this result as normal/abnormal . GRAN MAT (NEUT) % 80.8 % (test code = 770-8) IMM GRAN % (test code 5.80 % = 0125180327) LYMPH % (test code = 7.4 % 736-9) MONO % (test code = 4.9 % 5905-5) EOS % (test code = 0.6 % 713-8) BASO % (test code = 0.5 % 706-2) GRAN MAT x10^3(ANC) 17.18 10*3/uL 1.99-6.95 H (test code = 6689855514) IMM GRAN x10^3 (test 1.23 10*3/uL 0.00-0.06 H code = 1239124749) LYMPH x10^3 (test code 1.57 10*3/uL 1.09-3.23 = 731-0) MONO x10^3 (test code 1.04 10*3/uL 0.36-1.02 H = 742-7) EOS x10^3 (test code = 0.13 10*3/uL 0.06-0.53 711-2) BASO x10^3 (test code 0.10 10*3/uL 0.01-0.09 H = 704-7) Lab Interpretation Abnormal (test code = 65073-0) [facility] METABOLIC PANEL (NA, K, CL, CO2, GLUCOSE, BUN, CREATININE, CA)2020-04-26 12:01:30 Test Item Value Reference Range Interpretation Comments NA (test code = 135 mmol/L 135-145 5669154777) K (test code = 4.3 mmol/L 3.5-5.0 8741703706) CL (test code = 102 mmol/L 98-108 3724591446) CO2 TOTAL (test code = 27 mmol/L 23-31 7189298745) AGAP (test code = 2-16 2104473499) BUN (test code = 21 mg/dL 7-23 1983035955) GLUCOSE (test code = 99 mg/dL 70-110 3112724690) CREATININE (test code = 0.57 mg/dL 0.60-1.25 L 5199552332) CALCIUM (test code = 8.3 mg/dL 8.6-10.6 L 0738312736) eGFR Calculation mL/min/1.73m2 (Non-) (test code = 5616611659) eGFR Calculation mL/min/1.73m2 () (test code = 4715846518) RUDI (test code = RUDI) Association of Glomerular Filtration Rate (GFR) and Staging of Kidney Disease* + --+ --+ ------+| GFR (mL/min/1.73 m2) ?| With Kidney Damage ?| ?Without Kidney Damage+ --------+ --------+ +| ?>90 ?| ?Stage one ?| ? Normal ?+ ---+ ---+ -------+| ?60-89 ?| ?Stage two ?| ? Decreased GFR ? + --+ --+ ------+| ?30-59 ?| ?Stage three ?| ? Stage three ? + --+ --+ ------+| ?15-29 ?| ?Stage four ? | ? Stage four ?+ ---+ ---+ -------+| ?<15 (or dialysis) ? ?| ?Stage five ? | ? Stage five ?+ ---+ ---+ -------+ *Each stage assumes the associated GFR level has been in effect for at least three months. ?Stages 1 to 5, with or without kidney disease, indicate chronic kidney disease. Notes: Determination of stages one and two (with eGFR >59mL/min/1.73 m2) requires estimation of kidney damage for at least three months as defined by structural or functional abnormalities of the kidney, manifested by either:Pathological abnormalities or Markers of kidney damage (including abnormalities in the composition of the blood or urine or abnormalities in imaging tests). Lab Interpretation Abnormal (test code = 08697-9) [facility] CULTURE [id number] 17:01:00 Test Item Value Reference Range Interpretation Comments Blood Culture-Aerobic No organisms No growth Previo us (test code = 86021-8) isolated prelim inary verified result was Culture In Progress on 04/20/2020 at 140 2 CSTPrevious preliminary verified result was No growth a t 24 hours on 04/21/2020 at 110 1 CSTPrevious preliminary verified result was No growth a t 48 hours on 04/22/2020 at 110 1 CSTPrevious preliminary verified result was No growth a t 72 hours on 04/23/2020 at 110 1 SE[employer] Blood No organisms No growth Previous Culture-Anaerobic isolated preliminar y (test code = 48242-2) verifi ed result was Culture In Progress on 04/20/2020 at 140 2 CSTPrevious preliminary verified result was No growth a t 24 hours on 04/21/2020 at 110 1 CSTPrevious preliminary verified result was No growth a t 48 hours on 04/22/2020 at 110 1 CSTPrevious preliminary verified result was No growth a t 72 hours on 04/23/2020 at 110 1 [employer] Lab Interpretation Normal (test code = 82615-1) [facility] CULTURE [id number] 17:01:00 Test Item Value Reference Range Interpretation Comments Blood Culture-Aerobic No organisms No growth Previo us (test code = 01712-8) isolated prelim inary verified result was Culture In Progress on 04/20/2020 at 140 2 CSTPrevious preliminary verified result was No growth a t 24 hours on 04/21/2020 at 110 1 CSTPrevious preliminary verified result was No growth a t 48 hours on 04/22/2020 at 110 1 CSTPrevious preliminary verified result was No growth a t 72 hours on 04/23/2020 at 110 1 SEAL [employer] Blood No organisms No growth Previous Culture-Anaerobic isolated preliminar y (test code = 86827-2) verifi ed result was Culture In Progress on 04/20/2020 at 140 2 CSTPrevious preliminary verified result was No growth a t 24 hours on 04/21/2020 at 110 1 CSTPrevious preliminary verified result was No growth a t 48 hours on 04/22/2020 at 110 1 CSTPrevious preliminary verified result was No growth a t 72 hours on 04/23/2020 at 110 1 [employer] Lab Interpretation Normal (test code = 59816-6) [facility] [id number] 12:58:00 Test Item Value Reference Range Interpretation Comments CRP (test code = 1459252010) 18.1 mg/dL <0.8 H Lab Interpretation (test code = Abnormal 83087-6) [facility] 17:45:00 Test Item Value Reference Range Interpretation Comments Procalcitonin (test 0.41 ng/mL <0.07 H code = 7312572979) RUDI (test code = RUDI) INTERPRETATION OF PROCALCITONIN RESULTS IN ADULTS >= 18 YEARS OF AGE Initiation and discontinuation of antibiotics on patients with suspected or confirmed Lower Respiratory Tract Infection in Adults >= 18 years of age. + +-------- --------+ + -----+|Procalcitonin |Interpretation ?|Antibiotic ? ? |Considerations ? |ng/mL ? | ?|recommendation | ? + +-------- --------+ + -----+| <0.1 ? | Bacterial ? ? ?| Strongly ? ? ?| ? | ?| infection very | discouraged ? | Overruling: ? | ?| unlikely ? ? ? | ? | ? Clinically unstable ? ? ? + +-------- --------+ + ? High risk for adverse ? ? | <0.25 ?| Bacterial ? ? ?| Discouraged ? | ? outcome ? | ?| infection ? ? ?| ? | ? SEE IMPORTANT NOTE ?| ?| unlikely ? ? ? | ? | ? + +-------- --------+ + -----+| >=0.25 ? ? ? | Bacterial ? ? ?| Encouraged ? ?| ? | ?| infection ? ? ?| ? | ? | ?| likely ? | ? | Consider treatment failure ?+ +------- ---------+ -+ if levels does not decrease | >0.5 ? | Bacterial ? ? ?| Strongly ? ? ?| appropriately ? | ?| infection very | encouraged ? ?| ? | ?| likely ? | ? | ? + +-------- --------+ + -----+ Discontinuation of antibiotics in high-acuity patients with suspected or confirmed sepsis in Adults >= 18 years of age. + +-------- --------+ + -----+|Procalcitonin |Interpretation ?|Antibiotic ? ? |Considerations ? |ng/mL ? | ?|recommendation | ? + +-------- --------+ + -----+| <0.25 ?| Bacterial ? ? ?| Strongly ? ? ?| ? | ?| infection very | discouraged ? | Overruling: ? | ?| unlikely ? ? ? | ? | ? Clinically unstable ? ? ? + +-------- --------+ + ? High risk for adverse ? ? | <0.5 or drop | Bacterial ? ? ?| Discouraged ? | ? outcome ? | >80% from ? ?| infection ? ? ?| ? | ? SEE IMPORTANT NOTE ?| highest PCT ?| unlikely ? ? ? | ? | ? | level ?| ?| ? | ? + +-------- --------+ + -----+| >=0.5 ?| Bacterial ? ? ?| Encouraged ? ?| ? | ?| infection ? ? ?| ? | ? | ?| likely ? | ? | Consider treatment failure ?+ +------- ---------+ -+ if levels does not decrease | >1.0 ? | Bacterial ? ? ?| Strongly ? ? ?| appropriately ? | ?| infection very | encouraged ? ?| ? | ?| likely ? | ? | ? + +-------- --------+ + -----+ Percentage of drop of Procalcitonin calculation for Discontinuation of antibiotics in high-acuity patients with suspected or confirmed sepsis in Adults >= 18 years of age. ? Procalcitonin highest{}-Procalcitonin current{}Delta Procalcitonin = x100% ? Procalcitonin current {} IMPORTANT NOTE: Procalcitonin may be elevated without bacterial infection by physiologic stress related to trauma, fair, chronic dialysis, metastatic cancer, surgery in the past seven days, malaria, some fungal infections, and some forms of vasculitis. The interpretation algorithm may not apply to patients with immunosuppression (equivalent of >10 mg of prednisone daily), HIV with CD4 cell count < 350 cells/mm3, active malignancy on systemic chemotherapy, solid organ transplant or hematopoietic stem cell transplantation, or hospital acquired pneumonia. Additionally, some clinical trials of procalcitonin have excluded patients with shock requiring vasopressor use, acute respiratory failure requiring mechanical ventilation, or those with known lung abscess/empyema. For further information please refer to:[email or web address] Lab Interpretation Abnormal (test code = 95966-3) [facility] WITH [id number] 14:42:00 Test Item Value Reference Range Interpretation Comments WBC (test code = See_Comment H [Automated 8810-2) message] The system which generated this result transmit kendal reference range : 4.20 - 10.70 10*3/?L. The reference range was not used to interpret this result as normal/abnormal . RBC (test code = See_Comment [Automated 911-8) message] The system which generated this result transmit kendal reference range : 4.26 - 5.52 10*6/?L. The reference range was not used to interpret this result as normal/abnormal . HGB (test code = 15.5 g/dL 12.2-16.4 718-7) HCT (test code = 44.5 % 38.4-49.3 4544-3) MCV (test code = 83.2 fL 81.7-95.6 787-2) MCH (test code = 29.0 pg 26.1-32.7 785-6) MCHC (test code = 34.8 g/dL 31.2-35.0 786-4) RDW-SD (test code = 41.8 fL 38.5-51.6 12807-9) RDW-CV (test code = 13.8 % 12.1-15.4 788-0) PLT (test code = See_Comment [Automated 777-3) message] The system which generated this result transmit kendal reference range : 150 - 328 10*3/ ?L. The reference range was not u sed to interpret th is result as normal/abnormal . MPV (test code = 9.8 fL 9.8-13.0 06832-9) NRBC/100 WBC (test See_Comment [Automat ed code = 0057903402) message] The system which generated this result transmit kendal reference range : 0.0 - 10.0 /100 WBCs. The reference range was not used to interpret this result as normal/abnormal . NRBC x10^3 (test code <0.01 See_Comment [Auto mated = 0797241204) message] The system which generated this result transmit kendal reference range : 10*3/?L. The reference range was not used to interpret this result as normal/abnormal . GRAN MAT (NEUT) % 68.9 % (test code = 770-8) IMM GRAN % (test code 2.40 % = 8593007914) LYMPH % (test code = 8.1 % 736-9) MONO % (test code = 11.7 % 5905-5) EOS % (test code = 8.3 % 713-8) BASO % (test code = 0.6 % 706-2) GRAN MAT x10^3(ANC) 10.53 10*3/uL 1.99-6.95 H (test code = 2075361355) IMM GRAN x10^3 (test 0.36 10*3/uL 0.00-0.06 H code = 2252627577) LYMPH x10^3 (test code 1.23 10*3/uL 1.09-3.23 = 731-0) MONO x10^3 (test code 1.79 10*3/uL 0.36-1.02 H = 742-7) EOS x10^3 (test code = 1.26 10*3/uL 0.06-0.53 H 711-2) BASO x10^3 (test code 0.09 10*3/uL 0.01-0.09 = 704-7) BANDS (test code = Increased A 9472620806) Lab Interpretation Abnormal (test code = 58415-9) [facility]. METABOLIC PANEL (86861)2020-04-23 13:01:00 Test Item Value Reference Range Interpretation Comments NA (test code = 134 mmol/L 135-145 L 3359483885) K (test code = 4.2 mmol/L 3.5-5.0 1658849164) CL (test code = 100 mmol/L 98-108 4270383600) CO2 TOTAL (test code = 28 mmol/L 23-31 8986396100) AGAP (test code = 2-16 1281351875) BUN (test code = 22 mg/dL 7-23 9026093506) GLUCOSE (test code = 100 mg/dL 70-110 9015732097) CREATININE (test code = 0.61 mg/dL 0.60-1.25 7246017964) TOTAL BILI (test code = 0.7 mg/dL 0.1-1.1 7906562869) CALCIUM (test code = 8.4 mg/dL 8.6-10.6 L 9336039933) T PROTEIN (test code = 5.6 g/dL 6.3-8.2 L 3039689065) ALBUMIN (test code = 3.0 g/dL 3.5-5.0 L 8314765042) ALK PHOS (test code = 87 U/L 34-122 3051507692) ALTv (test code = 60 U/L 5-50 H 1742-6) AST(SGOT) (test code = 38 U/L 13-40 7130022526) eGFR Calculation mL/min/1.73m2 (Non-) (test code = 5190509388) eGFR Calculation mL/min/1.73m2 () (test code = 0219018893) RUDI (test code = RUDI) Association of Glomerular Filtration Rate (GFR) and Staging of Kidney Disease* + --+ --+ ------+| GFR (mL/min/1.73 m2) ?| With Kidney Damage ?| ?Without Kidney Damage+ --------+ --------+ +| ?>90 ?| ?Stage one ?| ? Normal ?+ ---+ ---+ -------+| ?60-89 ?| ?Stage two ?| ? Decreased GFR ? + --+ --+ ------+| ?30-59 ?| ?Stage three ?| ? Stage three ? + --+ --+ ------+| ?15-29 ?| ?Stage four ? | ? Stage four ?+ ---+ ---+ -------+| ?<15 (or dialysis) ? ?| ?Stage five ? | ? Stage five ?+ ---+ ---+ -------+ *Each stage assumes the associated GFR level has been in effect for at least three months. ?Stages 1 to 5, with or without kidney disease, indicate chronic kidney disease. Notes: Determination of stages one and two (with eGFR >59mL/min/1.73 m2) requires estimation of kidney damage for at least three months as defined by structural or functional abnormalities of the kidney, manifested by either:Pathological abnormalities or Markers of kidney damage (including abnormalities in the composition of the blood or urine or abnormalities in imaging tests). Lab Interpretation Abnormal (test code = 39359-7) [facility]:15:00 Test Item Value Reference Range Interpretation Comments POCT GLU (test code = 3072715055) 98 mg/dL 70-110 Lab Interpretation (test code = Normal 90738-6) [facility] [id number] 23:03:00 Test Item Value Reference Range Interpretation Comments TSH (test code = See_Comment Biotin has been 1042981263) reported to cau se a negative bias, interpret resul ts relative to pat ient's use of biotin. [Automated mess age] The system [employer] generated this result transmitted ref erence range: 0.45 - 4 .70 mIU/L. The refe rence range was not u sed to interpret this result as normal/abnor mal. Lab Interpretation (test Normal code = 92580-4) [facility] [id number] 19:44:00 Test Item Value Reference Range Interpretation Comments CRP (test code = 3633570800) 35.9 mg/dL <0.8 H Lab Interpretation (test code = Abnormal 44639-6) [facility] [id number] 13:01:00 Test Item Value Reference Range Interpretation Comments WBC (test code = See_Comment H [Automated 6690-2) message] The system which generated this result transmit kendal reference range : 4.20 - 10.70 10*3/?L. The reference range was not used to interpret this result as normal/abnormal . RBC (test code = See_Comment [Automated 789-8) message] The system which generated this result transmit kendal reference range : 4.26 - 5.52 10*6/?L. The reference range was not used to interpret this result as normal/abnormal . HGB (test code = 14.7 g/dL 12.2-16.4 718-7) HCT (test code = 42.9 % 38.4-49.3 4544-3) MCV (test code = 84.0 fL 81.7-95.6 787-2) MCH (test code = 28.8 pg 26.1-32.7 785-6) MCHC (test code = 34.3 g/dL 31.2-35.0 786-4) RDW-SD (test code = 42.5 fL 38.5-51.6 26761-3) RDW-CV (test code = 13.7 % 12.1-15.4 788-0) PLT (test code = See_Comment [Automated 777-3) message] The system which generated this result transmit kendal reference range : 150 - 328 10*3/ ?L. The reference range was not u sed to interpret th is result as normal/abnormal . MPV (test code = 10.4 fL 9.8-13.0 07387-7) NRBC/100 WBC (test See_Comment [Automat ed code = 9270078455) message] The system which generated this result transmit kendal reference range : 0.0 - 10.0 /100 WBCs. The reference range was not used to interpret this result as normal/abnormal . NRBC x10^3 (test code <0.01 See_Comment [Auto mated = 5029490257) message] The system which generated this result transmit kendal reference range : 10*3/?L. The reference range was not used to interpret this result as normal/abnormal . GRAN MAT (NEUT) % 85.9 % (test code = 770-8) IMM GRAN % (test code 1.20 % = 1213372498) LYMPH % (test code = 4.4 % 736-9) MONO % (test code = 7.9 % 5905-5) EOS % (test code = 0.3 % 713-8) BASO % (test code = 0.3 % 706-2) GRAN MAT x10^3(ANC) 15.92 10*3/uL 1.99-6.95 H (test code = 2729825497) IMM GRAN x10^3 (test 0.23 10*3/uL 0.00-0.06 H code = 6192066162) LYMPH x10^3 (test code 0.81 10*3/uL 1.09-3.23 L = 731-0) MONO x10^3 (test code 1.46 10*3/uL 0.36-1.02 H = 742-7) EOS x10^3 (test code = 0.05 10*3/uL 0.06-0.53 L 711-2) BASO x10^3 (test code 0.05 10*3/uL 0.01-0.09 = 704-7) Lab Interpretation Abnormal (test code = 22243-9) [facility] Metabolic Panel (NA, K, CL, CO2, GLUCOSE, BUN, CREATININE, CA)2020-04-21 11:24:00 Test Item Value Reference Range Interpretation Comments NA (test code = 133 mmol/L 135-145 L 4364829012) K (test code = 4.2 mmol/L 3.5-5.0 7440396804) CL (test code = 99 mmol/L 98-108 4910167874) CO2 TOTAL (test code = 26 mmol/L 23-31 3768976385) AGAP (test code = 2-16 7676505075) BUN (test code = 22 mg/dL 7-23 6771580189) GLUCOSE (test code = 92 mg/dL 70-110 7244736904) CREATININE (test code = 1.04 mg/dL 0.60-1.25 4464727098) CALCIUM (test code = 8.4 mg/dL 8.6-10.6 L 8645936601) eGFR Calculation mL/min/1.73m2 (Non-) (test code = 6829931567) eGFR Calculation mL/min/1.73m2 () (test code = 8815135268) RUDI (test code = RUDI) Association of Glomerular Filtration Rate (GFR) and Staging of Kidney Disease* + --+ --+ ------+| GFR (mL/min/1.73 m2) ?| With Kidney Damage ?| ?Without Kidney Damage+ --------+ --------+ +| ?>90 ?| ?Stage one ?| ? Normal ?+ ---+ ---+ -------+| ?60-89 ?| ?Stage two ?| ? Decreased GFR ? + --+ --+ ------+| ?30-59 ?| ?Stage three ?| ? Stage three ? + --+ --+ ------+| ?15-29 ?| ?Stage four ? | ? Stage four ?+ ---+ ---+ -------+| ?<15 (or dialysis) ? ?| ?Stage five ? | ? Stage five ?+ ---+ ---+ -------+ *Each stage assumes the associated GFR level has been in effect for at least three months. ?Stages 1 to 5, with or without kidney disease, indicate chronic kidney disease. Notes: Determination of stages one and two (with eGFR >59mL/min/1.73 m2) requires estimation of kidney damage for at least three months as defined by structural or functional abnormalities of the kidney, manifested by either:Pathological abnormalities or Markers of kidney damage (including abnormalities in the composition of the blood or urine or abnormalities in imaging tests). Lab Interpretation Abnormal (test code = 17629-4) [facility] BranchLEGION[facility]LL[facility] URIN[facility] ANTIGEN [id number] 08:59:00 Test Item Value Reference Range Interpretation Comments Legionella Urinary Negative Negative Antigen (test code = 6914535879) RUDI (test code = RUDI) Negative for L. pneumophilia serogroup I antigen in urine suggesting no recent or current infection. Infection due to Legionella cannot be ruled out since other serogroups and species may cause disease. Furthermore, antigens may not be present in urine during early stage of infection, or the level of antigen present in urine may be below the detection limit of the test. Lab Interpretation (test Normal code = 87640-0) [facility] [id number] 08:56:00 Test Item Value Reference Range Interpretation Comments S. pneumoniae antigen (test code = Negative Negative 6061305535) Lab Interpretation (test code = Normal 90474-2) [facility]IS[facility]21-[facility] 04:35:00 Test Item Value Reference Range Interpretation Comments APPEARANCE (test code Slightly Cloudy Clear A = 5565650192) COLOR (test code = Yellow Yellow 6290004680) PH (test code = 4.8-8.0 9679031946) SP GRAVITY (test code 1.003-1.030 = 1999350147) GLU U QUAL (test code 100 mg/dL Negative A = 2509344352) BLOOD (test code = Small Negative A 8823083849) KETONES (test code = Negative Negative 4590475354) PROTEIN (test code = 100 mg/dL Negative A 2887-8) UROBILIN (test code = 1.0 mg/dL See_Comment [Auto mated [id number]) message] The system which generated this result transmit kendal reference range : 0-1.0 mg/dL. Th e reference range was not used to interpret this result as normal/abnormal . BILIRUBIN (test code Negative Negative = 7547780566) NITRITE (test code = Negative Negative 2132474691) LEUK DE (test code Negative Negative = 7191145162) RBC/HPF (test code = See_Comment H [Autom ated 8680965010) message] The system which generated this result transmit kendal reference range : 0 - 3 HPF. The reference range was not used to interpret this result as normal/abnormal . WBC/HPF (test code = See_Comment [Autom ated 0876495125) message] The system which generated this result transmit kendal reference range : 0 - 5 HPF. The reference range was not used to interpret this result as normal/abnormal . BACTERIA (test code = Few Negative A 2001455404) MUCOUS (test code = Marked Negative LPF A 6626841017) SQ EPITH (test code = HPF 5747705202) GRAN CASTS (test code See_Comment H [Auto mated = 1753754919) message] The system which generated this result transmit kendal reference range : <=1 LPF. The reference range was not used to interpret this result as normal/abnormal . Lab Interpretation Abnormal (test code = 67987-8) [facility] CenterPROCALCITONIN2021[facility] 00:21:00 Test Item Value Reference Range Interpretation Comments Procalcitonin (test 1.37 ng/mL <0.07 H code = 3392530058) RUDI (test code = RUDI) INTERPRETATION OF PROCALCITONIN RESULTS IN ADULTS >= 18 YEARS OF AGE Initiation and discontinuation of antibiotics on patients with suspected or confirmed Lower Respiratory Tract Infection in Adults >= 18 years of age. + +-------- --------+ + -----+|Procalcitonin |Interpretation ?|Antibiotic ? ? |Considerations ? |ng/mL ? | ?|recommendation | ? + +-------- --------+ + -----+| <0.1 ? | Bacterial ? ? ?| Strongly ? ? ?| ? | ?| infection very | discouraged ? | Overruling: ? | ?| unlikely ? ? ? | ? | ? Clinically unstable ? ? ? + +-------- --------+ + ? High risk for adverse ? ? | <0.25 ?| Bacterial ? ? ?| Discouraged ? | ? outcome ? | ?| infection ? ? ?| ? | ? SEE IMPORTANT NOTE ?| ?| unlikely ? ? ? | ? | ? + +-------- --------+ + -----+| >=0.25 ? ? ? | Bacterial ? ? ?| Encouraged ? ?| ? | ?| infection ? ? ?| ? | ? | ?| likely ? | ? | Consider treatment failure ?+ +------- ---------+ -+ if levels does not decrease | >0.5 ? | Bacterial ? ? ?| Strongly ? ? ?| appropriately ? | ?| infection very | encouraged ? ?| ? | ?| likely ? | ? | ? + +-------- --------+ + -----+ Discontinuation of antibiotics in high-acuity patients with suspected or confirmed sepsis in Adults >= 18 years of age. + +-------- --------+ + -----+|Procalcitonin |Interpretation ?|Antibiotic ? ? |Considerations ? |ng/mL ? | ?|recommendation | ? + +-------- --------+ + -----+| <0.25 ?| Bacterial ? ? ?| Strongly ? ? ?| ? | ?| infection very | discouraged ? | Overruling: ? | ?| unlikely ? ? ? | ? | ? Clinically unstable ? ? ? + +-------- --------+ + ? High risk for adverse ? ? | <0.5 or drop | Bacterial ? ? ?| Discouraged ? | ? outcome ? | >80% from ? ?| infection ? ? ?| ? | ? SEE IMPORTANT NOTE ?| highest PCT ?| unlikely ? ? ? | ? | ? | level ?| ?| ? | ? + +-------- --------+ + -----+| >=0.5 ?| Bacterial ? ? ?| Encouraged ? ?| ? | ?| infection ? ? ?| ? | ? | ?| likely ? | ? | Consider treatment failure ?+ +------- ---------+ -+ if levels does not decrease | >1.0 ? | Bacterial ? ? ?| Strongly ? ? ?| appropriately ? | ?| infection very | encouraged ? ?| ? | ?| likely ? | ? | ? + +-------- --------+ + -----+ Percentage of drop of Procalcitonin calculation for Discontinuation of antibiotics in high-acuity patients with suspected or confirmed sepsis in Adults >= 18 years of age. ? Procalcitonin highest{}-Procalcitonin current{}Delta Procalcitonin = x100% ? Procalcitonin current {} IMPORTANT NOTE: Procalcitonin may be elevated without bacterial infection by physiologic stress related to trauma, fair, chronic dialysis, metastatic cancer, surgery in the past seven days, malaria, some fungal infections, and some forms of vasculitis. The interpretation algorithm may not apply to patients with immunosuppression (equivalent of >10 mg of prednisone daily), HIV with CD4 cell count < 350 cells/mm3, active malignancy on systemic chemotherapy, solid organ transplant or hematopoietic stem cell transplantation, or hospital acquired pneumonia. Additionally, some clinical trials of procalcitonin have excluded patients with shock requiring vasopressor use, acute respiratory failure requiring mechanical ventilation, or those with known lung abscess/empyema. For further information please refer to:[email or web address] Lab Interpretation Abnormal (test code = 52111-4) [facility] CenterVITAMIN D, [id number] 23:26:00 Test Item Value Reference Range Interpretation Comments VIT D 25OH (test code = 33 ng/mL 25-80 98522-7) RUDI (test code = RUDI) Deficiency: <20 ng/mLInsufficiency : 20-24 ng/mLOptimal: 25-80 ng/mL Lab Interpretation (test Normal code = 35038-3) [facility] CenterGLYCOSYLATED HEMOGLOBIN (A1C)2020-04-20 21:23:00 Test Item Value Reference Range Interpretation Comments HGB A1C (test code = 5.9 % 4.0-6.0 4548-4) RUDI (test code = RUDI) %A1C (NGSP) Interpretation (ADA)4.8-5.6 ? ? Normal or (Non-Diabetic Range)5.7-6.4 ? ? Increased Risk (Pre-Diabetic)>6.5 ?Diabetes Indicated Lab Interpretation Normal (test code = 00885-6) [facility] CenterCT [facility] PULMONARY [id number] 20:27:24 No acute pulmonary embolus. Diffuse groundglass/nodular opacities predominantly within the periphery ofboth lungs, consistent with known Covid-19 infection. ISarah MD., have reviewed this study and agree with the abovereport.EXAM: CT CHEST PULMONARY ANGIOGRAM CLINICAL INDICATION: PE suspected, high pretest prob COVID pna ? COMPARISON: ?None. TECHNIQUE: ?Helical CT was performed and reconstructed at 1.25 mm slicethickness from lung bases to apices using 100 mL Omnipaque intravenouscontrast, without complication. ? Axial MIPS and coronal/sagittal MPRS werereconstructed. ? (DFOV = 30 cm) FINDINGS: PULMONARY ARTERIES: Enhancement is excellent. There is no filling defect within the pulmonaryarterial system. CHEST: Lower neck/thyroid: Unremarkable. Lungs: Dif fuse groundglass/nodular opacities predominantly along theperiphery of both lungs. Central airway: Unremarkable. Pleura: No pleural effusion, thickening or pneumothorax. Thoracic aorta and great vessels: ?Normal in diameter. Heart and pericardium: The heart is normal in size. . No pericardialeffusion.Lymph nodes: Enlarged left paratracheal node measuring 1.2 cm (4:27). Mediastinum: Unremarkable. Bones and soft tissues: No acute osseous abnormality. Soft tissues areunremarkable. Visualized upper abdomen: Unremarkable. [facility], Radiant Results Inft User - 04/20/2020 2:28 PM CSTEXAM: CT CHEST PULMONARY ANGIOGRAMCLINICAL INDICATION: PE suspected, high pretest prob COVID pna COMPARISON: None.TECHNIQUE: Helical CT was performed and reconstructed at 1.25 mm slicethickness from lung bases to apices using 100 mL Omnipaque intravenouscontrast, without complication. Axial MIPS and coronal/sagittal MPRS werereconstructed. (DFOV = 30 cm)FINDINGS:PULMONARY ARTERIES:Enhancement is excellent. There is no filling defect within the pulmonaryarterial system.CHEST:Lower neck/thyroid: Unremarkable.Lungs: Diffuse groundglass/nodular opacities predominantly along theperiphery of both lungs.Central airway: Unremarkable.Pleura: No pleural effusion, thickening or pneumothorax.Thoracic aorta and great vessels: Normal in diameter.Heart and pericardium: The heart is normal in size. . No pericardialeffusion.Lymph nodes: Enlarged left paratracheal node measuring 1.2 cm (4:27).Mediastinum: Unremarkable.Bones and soft tissues: No acute osseous abnormality. Soft tissues areunremarkable.Visualized upper abdomen: Unremarkable. IMPRESSIONNo acute pulmonary embolus.Diffuse groundglass/nodular opacities predominantly within the periphery ofboth lungs, consistent with known Covid-19 infection. I, Sarah Smith MD., have reviewed this study and agree with the abovereport.[facility] LACTATE [id number] 19:40:00 Test Item Value Reference Range Interpretation Comments LDH (test code = 7044520689) 706 U/L 300-600 H Lab Interpretation (test code = Abnormal 67811-2) [facility] CenterFERRITIN [id number] 18:54:00 Test Item Value Reference Range Interpretation Comments FERRITIN (test code = 428.0 ng/mL 18.0-464.0 9063534594) RUDI (test code = RUDI) Biotin has been reported to cause a negative bias, interpret results relative to patient's use of biotin. Lab Interpretation (test Normal code = 64280-6) [facility] CenterD-[id number] 18:31:00 Test Item Value Reference Interpretation Comments Range D-DIMER (test code = <0.27 See_Comment [Autom ated 5692053963) message] The system which generated this result transmitted reference range : <0.41 ?g/mL (FEU). The reference range was not used to interpret this result as normal/abnormal . RUDI (test code = This test may be RUDI) used in conjunction with a clinical pretest probability (PTP) assessment model to exclude venous thromboembolism (VTE) in patients suspected of deep venous thrombosis (DVT) and pulmonary embolism (PE) A D-Dimer value less than 0.50 ?g/ml (FEU) has a negative predicative value of 96 to 100% (95% CI)and 97 to 100% (95% CI) as an aid in the diagnosis of deep vein thrombosis (DVT) and pulmonary embolism when there is low or moderate pretest probability of PE or DVT. D-Dimer values are expressed in initial fibrinogen equivalent units (FEU)" The assay results should be used with other information, including the clinical context, in forming a diagnosis. Lab Interpretation Normal (test code = 53325-3) [facility] CenterCREATINE [id number] 18:18:00 Test Item Value Reference Range Interpretation Comments CK (test code = 4948437799) 61 U/L 33-194 Lab Interpretation (test code = Normal 80374-4) [facility] CenterCB with [id number] 17:21:00 Test Item Value Reference Range Interpretation Comments WBC (test code = See_Comment H [Automated 6386-2) message] The system which generated this result transmit kendal reference range : 4.20 - 10.70 10*3/?L. The reference range was not used to interpret this result as normal/abnormal . RBC (test code = See_Comment H [Automated 029-8) message] The system which generated this result transmit kendal reference range : 4.26 - 5.52 10*6/?L. The reference range was not used to interpret this result as normal/abnormal . HGB (test code = 15.9 g/dL 12.2-16.4 718-7) HCT (test code = 48.1 % 38.4-49.3 4544-3) MCV (test code = 86.0 fL 81.7-95.6 787-2) MCH (test code = 28.4 pg 26.1-32.7 785-6) MCHC (test code = 33.1 g/dL 31.2-35.0 786-4) RDW-SD (test code = 43.2 fL 38.5-51.6 13593-8) RDW-CV (test code = 13.7 % 12.1-15.4 788-0) PLT (test code = See_Comment [Automated 467-3) message] The system which generated this result transmit kendal reference range : 150 - 328 10*3/ ?L. The reference range was not u sed to interpret th is result as normal/abnormal . MPV (test code = 9.9 fL 9.8-13.0 67199-2) NRBC/100 WBC (test See_Comment [Automat ed code = 4341734018) message] The system which generated this result transmit kendal reference range : 0.0 - 10.0 /100 WBCs. The reference range was not used to interpret this result as normal/abnormal . NRBC x10^3 (test code <0.01 See_Comment [Auto mated = 0804387263) message] The system which generated this result transmit kendal reference range : 10*3/?L. The reference range was not used to interpret this result as normal/abnormal . GRAN MAT (NEUT) % 92.7 % (test code = 770-8) IMM GRAN % (test code 1.10 % = 7253995087) LYMPH % (test code = 1.2 % 736-9) MONO % (test code = 4.8 % 5905-5) EOS % (test code = 0.0 % 713-8) BASO % (test code = 0.2 % 706-2) GRAN MAT x10^3(ANC) 21.85 10*3/uL 1.99-6.95 H (test code = 4463811059) IMM GRAN x10^3 (test 0.27 10*3/uL 0.00-0.06 H code = 6317302336) LYMPH x10^3 (test code 0.28 10*3/uL 1.09-3.23 L = 731-0) MONO x10^3 (test code 1.13 10*3/uL 0.36-1.02 H = 742-7) EOS x10^3 (test code = <0.03 0.06-0.53 L 711-2) BASO x10^3 (test code 0.05 10*3/uL 0.01-0.09 = 704-7) Lab Interpretation Abnormal (test code = 78212-0) [facility] CenterXR CHEST 1 [id number] 16:55:00 Moderate multifocal pneumonia findings, apparently Covid 19. EXAM: XR CHEST 1 VW COMPARISON: 01/15/2020 HISTORY: pneumonia FINDINGS: Lungs: Decreased inspiratory effort comparison with the previous study.There are moderate hazy opacities in the mid to lower lungs, somewhatsimilar to the remote study, however increased. Heart/Mediastinum: The cardiomediastinal silhouette is normal in sizeaccountingfor technique. Bones: No osseous lesions are detected. The soft tissues appear normal [facility], Radiant Results Inft User - 04/20/2020 10:56 AM CSTEXAM: XR CHEST 1 VWCOMPARISON: 01/15/2020HISTORY: pneumonia FINDINGS:Lungs: Decreased inspiratory effort comparison with the previous study.There are moderate hazy opacities in the mid to lower lungs, somewhatsimilar to the remote study, however increased.Heart/Mediastinum: The cardiomediastinal silhouette is normal in sizeaccounting for technique.Bones: No osseous lesions are detected. The soft tissues appear normalIMPRESSIONModerate multifocal pneumonia findings, apparently Covid 19.[facility] CenterHepatic Function Panel (ALB, T.PRO, BILI T, BU/BC, ALT, AST, ALK PHOS)2020-04-20 16:54:00 Test Item Value Reference Range Interpretation Comments TOTAL BILI (test code = 9576951938) 1.2 mg/dL 0.1-1.1 H BILI UNCON (test code = 0314410161) 0.6 mg/dL 0.1-1.1 BILI CONJ (test code = 4812531718) 0.0 mg/dL 0.0-0.3 T PROTEIN (test code = 1279522980) 7.8 g/dL 6.3-8.2 ALBUMIN (test code = 0901824000) 4.4 g/dL 3.5-5.0 ALK PHOS (test code = 1413254199) 132 U/L 34-122 H ALTv (test code = 1742-6) 98 U/L 5-50 H AST(SGOT) (test code = 5056127114) 59 U/L 13-40 H Lab Interpretation (test code = Abnormal 69821-5) [facility] CenterTroponin [id number] 16:49:00 Test Item Value Reference Range Interpretation Comments TROPONIN I (test 0.001 ng/mL See_Comment [Automated code = 1156326915) message] The system which generated this result transmitted reference range : <=0.034. The reference range was not used to interpret this result as normal/abnormal . RUDI (test code = Equal or Less than RUDI) 0.034 ng/ml---Normal ?Note: Cardiac troponin begins to rise 3-4 hours after the onset of ischemia. Repeat in 4-6 hours if the sample was drawn within 3-4 hours of the onset of the symptom and found normal. Between 0.035 and 0.120 ng/mL--- Borderline. Questionable myocardial injury or necrosis ? ?Note: Serial measurement may be necessary to confirm or exclude the diagnosis of myocardial injury or necrosis; Clinical correlation (symptoms, EKGs, imaging studies, and others) required; Repeat in 4-6 hours if clinically indicated. ? Equal or Higher than 0.121 ng/mL---Abnormal. Myocardial Injury or Necrosis Likely ? Biotin has been reported to cause a negative bias, interpret results relative to patient's use of biotin. ? Lab Interpretation Normal (test code = 94302-6) [facility] CenterN-TERMINAL [id number] 16:46:00 Test Item Value Reference Range Interpretation Comments NT-proBNP (test code 91 pg/mL See_Comment [Autom ated = 8777814188) message] The system which generated this result transmitted reference range : <=125. The reference range was not used to interpret this result as normal/abnormal . RUDI (test code = RUDI) Biotin has been reported to cause a negative bias, interpret results relative to patient's use of biotin. Lab Interpretation Normal (test code = 32342-6) [facility] CenteraPTT2021-03-01 16:42:00 Test Item Value Reference Range Interpretation Comments APTT Patient (test See_Comment [Automat ed code = 3173-2) message] The system which generated this result transmitted reference range : 23 - 38 Seconds . The reference range was not used to interpr et this result as normal/abnormal . RUDI (test code = RUDI) The [facility] patient population mean normal value for aPTT is 30 seconds. Lab Interpretation Normal (test code = 48915-4) [facility] CenterProthrombin Time (PT) / [id number] 16:40:00 Test Item Value Reference Range Interpretation Comments PROTIME PATIENT (test See_Comment [Auto mated message] code = 5964-2) The system [employer] generated this result transmitted ref erence range: 12.0 - 1 4.7 Seconds. The re ference range was not u sed to interpret this result as normal/abnor mal. INR (test code = 6301-6) Nor mal INR <1.1; Warfarin Therap eutic range 2.0 to 3. 0 or 2.5 to 3.5, dep ending upon the indica tions. Lab Interpretation (test Normal code = 00186-3) [facility] Metabolic Panel (NA, K, CL, CO2, GLUCOSE, BUN, CREATININE, CA)2020-04-20 16:37:00 Test Item Value Reference Range Interpretation Comments NA (test code = 136 mmol/L 135-145 8121747875) K (test code = 4.0 mmol/L 3.5-5.0 4706001585) CL (test code = 99 mmol/L 98-108 0758103902) CO2 TOTAL (test code = 25 mmol/L 23-31 4967556434) AGAP (test code = 2-16 9527412402) BUN (test code = 22 mg/dL 7-23 9261465418) GLUCOSE (test code = 155 mg/dL 70-110 H 0948007492) CREATININE (test code = 0.82 mg/dL 0.60-1.25 7419869689) CALCIUM (test code = 9.0 mg/dL 8.6-10.6 5459830941) eGFR Calculation mL/min/1.73m2 (Non-) (test code = 4790202402) eGFR Calculation mL/min/1.73m2 () (test code = 8666670263) RUDI (test code = RUDI) Association of Glomerular Filtration Rate (GFR) and Staging of Kidney Disease* + --+ --+ ------+| GFR (mL/min/1.73 m2) ?| With Kidney Damage ?| ?Without Kidney Damage+ --------+ --------+ +| ?>90 ?| ?Stage one ?| ? Normal ?+ ---+ ---+ -------+| ?60-89 ?| ?Stage two ?| ? Decreased GFR ? + --+ --+ ------+| ?30-59 ?| ?Stage three ?| ? Stage three ? + --+ --+ ------+| ?15-29 ?| ?Stage four ? | ? Stage four ?+ ---+ ---+ -------+| ?<15 (or dialysis) ? ?| ?Stage five ? | ? Stage five ?+ ---+ ---+ -------+ *Each stage assumes the associated GFR level has been in effect for at least three months. ?Stages 1 to 5, with or without kidney disease, indicate chronic kidney disease. Notes: Determination of stages one and two (with eGFR >59mL/min/1.73 m2) requires estimation of kidney damage for at least three months as defined by structural or functional abnormalities of the kidney, manifested by either:Pathological abnormalities or Markers of kidney damage (including abnormalities in the composition of the blood or urine or abnormalities in imaging tests). Lab Interpretation Abnormal (test code = 30943-7) [facility] CenterCOVID-19 (ID NOW RAPID TESTING)2020-04-20 16:37:00 Test Item Value Reference Range Interpretation Comments SARS-CoV-2 Rapid ID NOW Positive Not Detected A (test code = 85883-1) RUDI (test code = RUDI) ID NOW COVID-19 Assay is an isothermal nucleic acid amplification test intended for the qualitative detection of nucleic acid from SARS-CoV-2 viral RNA in nasopharyngeal (C[facility] [employer]) specimens. It is used under Emergency Use Authorization (EUA) by FDA. The limit of detection (LOD) of the assay is 125 Genome Equivalents/mL. A positive result is indicative of the presence of SARS-CoV-2 RNA. ?Clinical correlation with patient history and other diagnostic information is necessary to determine patient infection status. A negative (Not Detected) result does not preclude SARS-CoV-2 infection. In patients with clinical symptoms and other tests that are consistent with SARS-CoV-2 infection, negative results should be treated as presumptive negative and a new specimen should be tested with alternative PCR molecular test. Invalid: Please collect a new specimen for repeat patient testing if clinically indicated. Lab Interpretation Abnormal (test code = 96846-1) [facility]
[2021-01-10] MEDS ORDERED: METHYLPREDNISOLONE 125 MG INJ ONE (05:10)
[2021-01-10] MEDS ORDERED: IPRATROPIUM BROM 0.5MG/2.5ML ONE (05:11)
[2021-01-10] MEDS ORDERED: ALBUTEROL 2.5 MG/3 ML NEB SOL ONE (05:11)
[2021-01-10] MEDS ORDERED: CEFTRIAXONE 1000 MG/VIAL ONE (07:18)
[2021-01-10] MEDS ORDERED: NA CHLORIDE 0.9% 100 ML ONE (07:19)
[2021-01-10 07:36] LABS: Absolute Lymphocytes (CBC) 2.2 K/uL (0.7-4.9); Basophils % 2.3 % (0-1.3); Hematocrit 44.8 % (39.6-49.0); Lymphocytes % 23.1 % (15.3-44.8); MPV 8.5 fL (7.6-11.3); RBC Red Blood Cell Count 5.15 M/uL (4.33-5.43)
[2021-01-10 08:20] LABS: ALT/SGPT 49 U/L (12-78); AST/SGOT 26 U/L (15-37); Albumin 3.7 g/dL (3.4-5.0); Alkaline Phosphatase 73 U/L (45-117); BUN Blood Urea Nitrogen 17 mg/dL (7-18); Bicarbonate 24 mmol/L (21-32); Bilirubin Direct 0.1 mg/dL (0-0.2); Bilirubin Total 0.5 mg/dL (0.2-1.0); Glucose Level 92 mg/dL (74-106); Magnesium 2.5 mg/dL (1.8-2.4); NT PRO-BNP 44 pg/mL (<125); Potassium 3.7 mmol/L (3.5-5.1); Protein, Total 7.3 g/dL (6.4-8.2); Sodium Level 145 mmol/L (136-145); Troponin (Emerg Dept Use Only) < 0.02 ng/mL (0.0-0.045)
--- NOTE | 2021-01-10 08:28 | RAD REPORT ---
EXAM DESCRIPTION: RAD - Chest Single View - 01/10/2021 6:58 am CLINICAL HISTORY: wheezing;Congestion COMPARISON: September 2019 TECHNIQUE: AP portable chest image was obtained 01/10/2021 6:58 am . FINDINGS: No mass or consolidations seen. Under penetrated technique accentuates bibasilar interstit ial pattern which does appear to be increased from the comparison. Central vasculature within normal range. Heart size is normal. Trachea remains in the midline. No measurable pleural effusion and no pn eumothorax. No acute bony abnormality seen. No acute aortic findings suspected. IMPRESSION: Bibasilar interstitial edema or infiltrate.
[2021-01-10] MEDS ORDERED: AZITHROMYCIN IV 500 MG in NA CHLORIDE 0.9% 250 ML IVPB ONE (09:00)
--- NOTE | 2021-01-10 09:07 | EDPHYS ---
Physician Documentation [facility] Name: Qamar Mayorga Age: 41 yrs Sex: Male : 1980 Arrival Date: 01/10/2021 Time: 04:44 Bed 7 Private MD: ED Physician Constantin Magdaleno HPI: 01/10 05:00 This 41 yrs old Male presents to ER via Ambulatory with complaints of Asthma mh7 Exacerbation. 05:00 The patient presents to the emergency department with wheezing, Current therapy: mh7 albuterol nebs, that began after exposure to animal dander, the patient was reported to have audible wheezing, trouble breathing, Pre-hospital care: med neb, albuterol. Onset: The symptoms/episode began/occurred 3 day(s) ago. Modifying factors: The symptoms are alleviated by nothing, the symptoms are aggravated by animal dander. Associated signs and symptoms: Pertinent negatives: chest pain, choking, fever, headache, nausea, palpitations, rash, vomiting. Severity of symptoms: At their worst the symptoms were moderate yesterday, in the emergency department the symptoms are unchanged. The patient has experienced similar episodes in the past. Historical: - Allergies: 04:59 Dilantin; bb - Home Meds: 04:59 albuterol sulfate 0.63 mg/3 mL Inhl nebu [Active]; Flonase 50 mcg/actuation Nasal spsn bb 1 spray 2 times per day [Active]; levothyroxine oral [Active]; Zyrtec 10 mg Oral chew 1 tab once daily [Active]; - PMHx: 04:59 Asthma; hyperthyroidism; Pneumonia; seasonal allergies; bb - Immunization history:: Adult Immunizations unknown, Client reports having NOT received the Covid vaccine. - Social history:: Smoking status: Patient denies any tobacco usage or history of. ROS: 05:00 Constitutional: Negative for fever, chills, and weight loss, Eyes: Negative for injury, mh7 pain, redness, and discharge, ENT: Negative for injury, pain, and discharge, Neck: Negative for injury, pain, and swelling, Cardiovascular: Negative for chest pain, palpitations, and edema, Abdomen/GI: Negative for abdominal pain, nausea, vomiting, diarrhea, and constipation, Back: Negative for injury and pain, : Negative for injury, bleeding, discharge, and swelling, MS/Extremity: Negative for injury and deformity, Skin: Negative for injury, rash, and discoloration, Neuro: Negative for headache, weakness, numbness, tingling, and seizure, Psych: Negative for depression, anxiety, suicide ideation, homicidal ideation, and hallucinations, Allergy/Immunology: Negative for hives, rash, and allergies, Endocrine: Negative for neck swelling, polydipsia, polyuria, polyphagia, and marked weight changes, Hematologic/Lymphatic: Negative for swollen nodes, abnormal bleeding, and unusual bruising. Exam: 05:00 Constitutional: This is a well developed, well nourished patient who is awake, alert, mh7 and in no acute distress. Head/Face: Normocephalic, atraumatic. Eyes: Pupils equal round and reactive to light, extra-ocular motions intact. Lids and lashes normal. Conjunctiva and sclera are non-icteric and not injected. Cornea within normal limits. Periorbital areas with no swelling, redness, or edema. Neck: Trachea midline, no thyromegaly or masses palpated, and no cervical lymphadenopathy. Supple, full range of motion without nuchal rigidity, or vertebral point tenderness. No Meningismus. Chest/axilla: Normal chest wall appearance and motion. Nontender with no deformity. No lesions are appreciated. Cardiovascular: Regular rate and rhythm with a normal S1 and S2. No gallops, murmurs, or rubs. Normal PMI, no JVD. No pulse deficits. 05:00 Abdomen/GI: Soft, non-tender, with normal bowel sounds. No distension or tympany. No guarding or rebound. No evidence of tenderness throughout. Back: No spinal tenderness. No costovertebral tenderness. Full range of motion. Skin: Warm, dry with normal turgor. Normal color with no rashes, no lesions, and no evidence of cellulitis. MS/ Extremity: Pulses equal, no cyanosis. Neurovascular intact. Full, normal range of motion. Neuro: Awake and alert, GCS 15, oriented to person, place, time, and situation. Cranial nerves II-XII grossly intact. Motor strength 5/5 in all extremities. Sensory grossly intact. Cerebellar exam normal. Normal gait. Psych: Awake, alert, with orientation to person, place and time. Behavior, mood, and affect are within normal limits. 05:00 Constitutional: The patient appears 05:00 Respiratory: the patient does not display signs of respiratory distress, Respirations: prolonged exhalation, that is moderate, Breath sounds: wheezing: expiratory that is moderate, is heard diffusely, Respiratory rate: 20 07:51 ECG was reviewed by the Attending Physician. rn Vital Signs: 04:55 BP 121 / 79; Pulse 76; Resp 20; Temp 98.5(O); Pulse Ox 95% on R/A; Weight 88.45 kg (R); bb Height 5 ft. 7 in. (170.18 cm) (R); Pain 0/10; 06:55 BP 123 / 86; Pulse 81; Resp 15; Pulse Ox 92% on R/A; em 07:15 BP 118 / 79; Pulse 68; Resp 16 S; Pulse Ox 95% on R/A; aa5 08:00 BP 115 / 65; Pulse 69; Resp 18 S; Pulse Ox 96% on R/A; aa5 09:02 Pulse Ox 96% ; rn 09:30 BP 109 / 67; Pulse 80; Resp 18 S; Temp 98.6(TE); Pulse Ox 95% on R/A; aa5 10:30 BP 111 / 74; Pulse 80; Resp 16 S; Pulse Ox 96% on R/A; aa5 04:55 Body Mass Index 30.54 (88.45 kg, 170.18 cm) bb MDM: 07:07 Patient medically screened. rn 09:02 Differential diagnosis: acute asthma, URI, pneumonia, viral syndrome, COVID. Data rn reviewed: vital signs, nurses notes, lab test result(s), radiologic studies, plain films, and as a result, I will discharge patient. Data interpreted: air sampling and monitoring: rate is 81 beats/min, rhythm is normal sinus rhythm, regular, with no ectopy, Interpretation: normal rate, normal rhythm, Pulse oximetry: on room air is 96 %. Interpretation: acceptable. Counseling: I had a detailed discussion with the patient and/or guardian regarding: the historical points, exam findings, and any diagnostic results supporting the discharge/admit diagnosis, lab results, radiology results, the need for outpatient follow up, to return to the emergency department if symptoms worsen or persist or if there are any questions or concerns that arise at home. Response to treatment: the patient's symptoms have markedly improved after treatment, and as a result, I will discharge patient. Special discussion: I discussed with the patient/guardian in detail that at this point there is no indication for admission to the hospital. It is understood, however, that if the symptoms persist or worsen the patient needs to return immediately for re-evaluation. Based on the history and exam findings, there is no indication for further emergent testing or inpatient evaluation. I discussed with the patient/guardian the need to see the primary care provider for further evaluation of the symptoms. ED course: Patient feels much better. Oxygen 95 to 96% now. No tachypnea. Wheezing resolved. Awaiting Zithromax dosing for possible pneumonia. Patient refuses Covid testing. Patient states feels well and wants to go home. Offered observation in the hospital, patient declined. Will DC home with antibiotics and steroids and return precautions.. 01/10 07:02 Order name: Basic Metabolic Panel; Complete Time: 08:34 7 01/10 07:02 Order name: CBC with Diff; Complete Time: 19:11 7 01/10 07:02 Order name: LFT's; Complete Time: 08:34 7 01/10 07:02 Order name: Magnesium; Complete Time: 08:34 7 01/10 06:09 Order name: Chest Single View XRAY; Complete Time: 08:34 7 01/10 07:02 Order name: NT PRO-BNP; Complete Time: 08:34 7 01/10 07:02 Order name: PT-INR; Complete Time: 19:11 7 01/10 07:02 Order name: Troponin (emerg Dept Use Only); Complete Time: 08:34 7 01/10 07:03 Order name: Blood Culture Adult (2) [facility] 01/10 09:45 Order name: Manual Differential; Complete Time: 19:11 EDMS 01/10 04:59 Order name: Saline Lock; Complete Time: 05:33 mh7 01/10 07:02 Order name: EKG; Complete Time: 07:03 7 01/10 07:02 Order name: Cardiac monitoring; Complete Time: 07:13 7 01/10 07:02 Order name: EKG - Nurse/Tech; Complete Time: 07:29 7 01/10 07:02 Order name: Labs collected and sent; Complete Time: 07:29 7 01/10 07:02 Order name: O2 Per Protocol; Complete Time: 07:13 mh7 01/10 07:02 Order name: O2 Sat Monitoring; Complete Time: 07:13 mh7 EC:51 Rate is 70 beats/min. Rhythm is regular. QRS Tony is Normal. [place] interval is normal. QRS rn interval is normal. QT interval is normal. No Q waves. T waves are Normal. No ST changes noted. Clinical impression: Normal ECG. Interpreted by me. Reviewed by me. Administered Medications: 05:15 Drug: Albuterol - atroVENT (ipratropium) (3:1) (2.5 mg - 0.5 mg) 3 ml Route: Nebulizer; em 05:45 Follow up: Response: No adverse reaction; Marked relief of symptoms; Wheezing diminishedem 05:33 Drug: SOLU-Medrol (methylPrednisoLONE) 125 mg Route: IVP; Site: right antecubital; em 06:28 Follow up: Response: No adverse reaction em 07:22 Drug: Rocephin (cefTRIAXone) 1 grams Route: IV; Rate: per protocol; Site: right aa5 antecubital; 07:30 Follow up: Response: No adverse reaction aa5 09:00 Drug: AZITHromycin 500 mg Route: IVPB; Infused Over: 1 hrs; Site: right antecubital; aa5 10:00 Follow up: Response: No adverse reaction; IV Status: Completed infusion aa5 Disposition Summary: 01/10/21 09:06 Discharge Ordered Location: Home rn Problem: an acute exacerbation rn Symptoms: have improved rn Condition: Stable rn Diagnosis - Pneumonia, unspecified organism rn - Moderate persistent asthma with (acute) exacerbation rn Followup: rn - With: Private Physician - When: 2 - 3 days - Reason: Recheck today's complaints, Re-evaluation by your physician Discharge Instructions: - Discharge Summary Sheet rn - Asthma, Adult rn - Community-Acquired Pneumonia, Adult rn Forms: - Medication Reconciliation Form rn - Thank You Letter rn - Antibiotic contemporary or modern dancer - Prescription Opioid Use rn Prescriptions: - Prednisone 20 mg Oral Tablet - take 3 tablets by ORAL route once daily for 5 days; 15 tablet; Refills: 0, rn Product Selection Permitted - levofloxacin 500 mg Oral Tablet - take 1 tablet by ORAL route once daily for 7 days; 7 tablet; Refills: 0, rn Product Selection Permitted Signatures: Dispatcher [employer] Yoav Jenkins RN RN Joan Parisi RN RN Constantin Quiles MD MD rn Calderon, Audri, RN RN aa5 Devyn Fernandez MD MD 7 Corrections: (The following items were deleted from the chart) :10 06:09 COVID-19/FLU A+B ordered. KAVYA EDMS
--- NOTE | 2021-01-10 09:07 | ER ---
Nurse's Notes [facility] Name: Qamar Mayorga Age: 41 yrs Sex: Male : 1980 Arrival Date: 01/10/2021 Time: 04:44 Bed 7 Private MD: Diagnosis: Pneumonia, unspecified organism;Moderate persistent asthma with (acute) exacerbation Presentation: 01/10 04:55 Chief complaint: Patient states: he has been having difficulty breathing since bb saw his PCP who gave him amoxicillin for an ear infection but his symptoms are getting worse. Coronavirus screen: difficulty breathing. Ebola Screen: No symptoms or risks identified at this time. Initial Sepsis Screen: Does the patient meet any 2 criteria? No. Patient's initial sepsis screen is negative. Does the patient have a suspected source of infection? No. Patient's initial sepsis screen is negative. Risk Assessment: Do you want to hurt yourself or someone else? Patient reports no desire to harm self or others. Onset of symptoms was January 07, 2021. 04:55 Method Of Arrival: Ambulatory bb 04:55 Acuity: JAMSHID 3 bb Historical: - Allergies: 04:59 Dilantin; bb - Home Meds: 04:59 albuterol sulfate 0.63 mg/3 mL Inhl nebu [Active]; Flonase 50 mcg/actuation Nasal spsn bb 1 spray 2 times per day [Active]; levothyroxine oral [Active]; Zyrtec 10 mg Oral chew 1 tab once daily [Active]; - PMHx: 04:59 Asthma; hyperthyroidism; Pneumonia; seasonal allergies; bb - Immunization history:: Adult Immunizations unknown, Client reports having NOT received the Covid vaccine. - Social history:: Smoking status: Patient denies any tobacco usage or history of. Screenin:15 Abuse screen: Denies threats or abuse. Nutritional screening: No deficits noted. em Tuberculosis screening: No symptoms or risk factors identified. Fall Risk None identified. Assessment: 05:15 General: Appears in no apparent distress. uncomfortable, Behavior is calm, cooperative, em appropriate for age, Denies fever. Pain: Denies pain. Neuro: Level of Consciousness is awake, alert, obeys commands, Oriented to person, place, time, situation. Cardiovascular: Capillary refill < 3 seconds Patient's skin is warm and dry. Rhythm is regular. Respiratory: Reports shortness of breath cough that is Airway is patent Respiratory effort is even, unlabored, Respiratory pattern is regular, symmetrical, Breath sounds with wheezes bilaterally. Derm: Skin is intact, is healthy with good turgor, Skin is pink, warm \T\ dry. Musculoskeletal: Capillary refill < 3 seconds, Range of motion: intact in all extremities. 06:27 Reassessment: pt refused covid swab, Dr. Fernandez notified. em 07:10 Reassessment: Patient is alert, oriented x 3, equal unlabored respirations, skin aa5 warm/dry/pink. Patient states feeling better. Patient states symptoms have improved. 08:12 Reassessment: Awaiting azithromycin from pharmacy, contacted pharmacy again and they aa5 stated they will bring medication. . 09:00 Reassessment: Patient is alert, oriented x 3, equal unlabored respirations, skin aa5 warm/dry/pink. 11:00 Reassessment: Patient is alert, oriented x 3, equal unlabored respirations, skin aa5 warm/dry/pink. Vital Signs: 04:55 BP 121 / 79; Pulse 76; Resp 20; Temp 98.5(O); Pulse Ox 95% on R/A; Weight 88.45 kg (R); bb Height 5 ft. 7 in. (170.18 cm) (R); Pain 0/10; 06:55 BP 123 / 86; Pulse 81; Resp 15; Pulse Ox 92% on R/A; em 07:15 BP 118 / 79; Pulse 68; Resp 16 S; Pulse Ox 95% on R/A; aa5 08:00 BP 115 / 65; Pulse 69; Resp 18 S; Pulse Ox 96% on R/A; aa5 09:02 Pulse Ox 96% ; rn 09:30 BP 109 / 67; Pulse 80; Resp 18 S; Temp 98.6(TE); Pulse Ox 95% on R/A; aa5 10:30 BP 111 / 74; Pulse 80; Resp 16 S; Pulse Ox 96% on R/A; aa5 04:55 Body Mass Index 30.54 (88.45 kg, 170.18 cm) ED Course: 04:44 Patient arrived in ED. 04:59 Devyn Fernandez MD is Attending Physician. 7 04:59 Triage completed. bb 04:59 Arm band placed on. bb 05:14 Yoav Chirinos, RN is Primary Nurse. em 05:15 Patient has correct armband on for positive identification. em 05:33 Inserted saline lock: 22 gauge in right antecubital area, using aseptic technique. em 06:58 Chest Single View XRAY In Process Unspecified. EDFL 07:07 Attending Physician role handed off by Devyn Fernandez MD rn 07:07 Constantin aMgdaleno MD is Attending Physician. rn 07:10 net washer on. Pulse ox on. NIBP on. aa5 07:10 Initial lab(s) drawn, by wi, sent to lab. First set of blood cultures drawn by me. aa5 07:20 Second set of blood cultures drawn by me. aa5 07:30 EKG done, by ED staff, reviewed by Constantin Magdaleno MD. 3 11:00 No provider procedures requiring assistance completed. IV discontinued, intact, aa5 bleeding controlled, No redness/swelling at site. Pressure dressing applied. Administered Medications: 05:15 Drug: Albuterol - atroVENT (ipratropium) (3:1) (2.5 mg - 0.5 mg) 3 ml Route: Nebulizer; em 05:45 Follow up: Response: No adverse reaction; Marked relief of symptoms; Wheezing diminishedem 05:33 Drug: SOLU-Medrol (methylPrednisoLONE) 125 mg Route: IVP; Site: right antecubital; em 06:28 Follow up: Response: No adverse reaction em 07:22 Drug: Rocephin (cefTRIAXone) 1 grams Route: IV; Rate: per protocol; Site: right aa5 antecubital; 07:30 Follow up: Response: No adverse reaction aa5 09:00 Drug: AZITHromycin 500 mg Route: IVPB; Infused Over: 1 hrs; Site: right antecubital; aa5 10:00 Follow up: Response: No adverse reaction; IV Status: Completed infusion aa5 Outcome: 09:06 Discharge ordered by . rn 11:00 Discharged to home ambulatory. aa5 11:00 Condition: improved 11:00 Discharge instructions given to patient, Instructed on discharge instructions, follow up and referral plans. medication usage, Demonstrated understanding of instructions, follow-up care, medications, Prescriptions given X 2. 11:04 Patient left the ED. aa5 Signatures: Dispatcher [employer] Yoav Jenkins, Joan Cline RN, RN RN bb Constantin Magdaleno MD MD rn Calderon, Audri, RN RN 5 Madina Carlson [facility] Devyn Fernandez MD MD [facility] Nayeli Dyer
[2021-01-10 09:16] LABS: Protime INR 1.07
[2021-01-10 09:45] LABS: Blood Morphology Comment NOT SEEN (NOT SEEN); Platelet Estimate ADEQ
[2021-01-10 11:10] VITALS: TEMP 98.5
[2021-01-10 11:11] VITALS: BP 123/86
[2021-01-10 11:12] VITALS: O2SAT 96
--- NOTE | 2021-01-13 08:13 | EKG ---
Test Date: 2021-01-10 Test Time: 07:27:24 Public Health Sanitarian Technician: CLEMENCIA MEASUREMENT RESULTS: Intervals: Rate: 70 VT: 128 QRSD: 80 QT: 392 QTc: 423 [place]: P: 39 VT: 128 QRS: 78 T: 78 INTERPRETIVE STATEMENTS: Normal sinus rhythm Normal ECG Compared to ECG 04/18/2016 11:10:35 Sinus tachycardia no longer present Electronically Signed On 01-13-21 08:04:21 HANDLING TECH by Fortunato Menendez
== END 2021-01-10 11:04 | disposition home or self-care (01) ==
LOC: ER 04:39
DX: J18.9 Pneumonia, unspecified organism (principal); J45.41 Moderate persistent asthma with (acute) exacerbation; Z88.8 Allergy status to other drugs, medicaments and biological substances
CPT/HCPCS: 96365; 93005; 87040 ×2; 85025; 80048; 36415; 83735; 87205; 85610; 80076; 84484; 83880; 71045; 94640; 96375; 99285; J0456; J7050; J2930

== ENCOUNTER 2021-03-13 01:19 | Emergency (ER) | payer OTHER ==
--- OUTSIDE RECORDS SUMMARY | 2021-03-13 01:25 | XMS REPORT | Continuity of Care Document ---
:1980 Author Organization [facility] t Address [address] [place] [address] [address]. [address] [place] [address] Care Team Providers Name Role Phone VICENTE Primary Care Physician Unavailable KM Attending Clinician Unavailable Km ALLEN Attending Clinician Doctor Unassigned, Name Attending Clinician Unavailable Francisco Castle DO Attending Clinician Mehdi OLIVA E Attending Clinician Sravan Attending Clinician Michael BOWIE Attending Clinician Krytsle BOWIE Attending Clinician RADIOLOGY Attending Clinician Unavailable Austin BOWIE Attending Clinician KM Admitting Clinician Unavailable Krystle BOWIE Admitting Clinician Payers Payer Name Policy Type Policy Number Effective Date Expiration Date S jessica MORROWR FROM [id number] 2020 [facility] 00:00:00 Problems Condition Condition Condition Status Onset Resolution Last Treating Co mments Source Name Details Category Date Date Treatment Clinician Date Lower Lower Disease Active Univers respirator respirator 3- it y of y tract y tract 00:00: [place] infection infection 00 Medi jenna due to due to Branch COVID-19 COVID-19 virus virus Postsurgic Postsurgic Disease Active U nivers al al 5- ity of hypothyroi hypothyroi 00:00: [place] dism dism 00 Medical [place] S/P S/P Disease Active Univers thyroidect thyroidect 4-21 it y of cintia cintia 00:00: [place] 00 Medical Branch Hyperthyro Hyperthyro Disease Active 2015-02 U gary idism idism 1-29 ity of 00:00: [place] 00 Medical Branch [...] adverse 00:00: [place] reaction 00 Medical s [place] Social History Social Habit Start Date Stop Date Quantity Comments Source Exposure to Not sure [facility] SARS-CoV-2 (event) Medica l [place] Alcohol intake 2021-02-06 2021-02-06 0 /d [facility] 00:00:00 00:00:00 [facility] Tobacco use and 2015-10-28 2015-10-28 Never used [facility] exposure 00:00:00 00:00:00 [facility] Sex Assigned At [birth year] [facility] 00:00:00 00:00:00 [facility] Smoking Status Start Date Stop Date Source Never smoker [facility] Medications Ordered Filled Start Stop Current Ordering Indication Dosage Frequency Signature Comments Components Source Medication Medication Date Date Medication? Clinician (SIG) Name Name dexamethaso 2020-02- Yes [id number] 10mg 10 mg, Univers ne 19 -19 Intramuscu ity of (DECADRON 01:30: 01:30 lar, ONCE, [place] PHOSPHATE) 00 :00 1 dose, On Med ical injection Sat Branch 10 mg 02/06/21 at 1930, STAT predniSONE 2020-02- Yes [id number] 40mg Take 2 Univers 20 mg 2-18 12-24 tablets by ity of tablet 00:00: 05:59 mouth [place] 00 :00 daily for Medical 5 days. Branch methylPREDN Yes [id number] Take by [facility] ISolone 4 3-09 mouth ity of mg tablets 00:00: SEE-INSTRU [place] 00 CTIONS. Medical follow Branch package directions methylPREDN 2021-0 Yes [id number] Take by Univers ISolone 4 3-09 mouth ity of mg tablets 00:00: SEE-INSTRU [place] 00 CTIONS. Medical follow Branch package directions methylPREDN 2021-0 Yes [id number] Take by Univers ISolone 4 3-09 mouth ity of mg tablets 00:00: SEE-INSTRU [place] 00 CTIONS. Medical follow Branch package directions methylPREDN 2021-0 Yes [id number] Take by Univers ISolone 4 3-09 mouth ity of mg tablets 00:00: SEE-INSTRU [place] 00 CTIONS. Medical follow Branch package directions methylPREDN 2021-0 Yes [id number] Take by Univers ISolone 4 3-09 mouth ity of mg tablets 00:00: SEE-INSTRU [place] 00 CTIONS. Medical follow Branch package directions methylPREDN 2021-0 Yes [id number] Take by Univers ISolone 4 3-09 mouth ity of mg tablets 00:00: SEE-INSTRU [place] 00 CTIONS. Medical follow Branch package directions budesonide- 0 Yes 2{puff} Inhale 2 Univers formoterol 3-08 Puffs 2 ity of (SYMBICORT) 22:37: (two) [place] 160-4.5 15 times Medical mcg/actuati daily. Branch on inhaler budesonide- 0 Yes 2{puff} Inhale 2 Univers formoterol 3-08 Puffs 2 ity of (SYMBICORT) 22:37: (two) [place] 160-4.5 15 times Medical mcg/actuati daily. Branch on inhaler budesonide- Yes 2{puff} Inhale 2 Univers formoterol 3-08 Puffs 2 ity of (SYMBICORT) 22:37: (two) [place] 160-4.5 15 times Medical mcg/actuati daily. Branch on inhaler budesonide- 0 Yes 2{puff} Inhale 2 Univers formoterol 3-08 Puffs 2 ity of (SYMBICORT) 22:37: (two) [place] 160-4.5 15 times Medical mcg/actuati daily. Branch on inhaler budesonide- Yes 2{puff} Inhale 2 Univers formoterol 3-08 Puffs 2 ity of (SYMBICORT) 16:37: (two) [place] 160-4.5 15 times Medical mcg/actuati daily. Branch on inhaler budesonide- Yes 2{puff} Inhale 2 Univers formoterol 3-08 Puffs 2 ity of (SYMBICORT) 16:37: (two) [place] 160-4.5 15 times Medical mcg/actuati daily. Branch on inhaler dexamethaso Yes 6mg 6 mg, IV Un gareth ne 3-06 Piggyback, ity of (DECADRON 15:00: DAILY, [place] PHOSPHATE) 00 First dose Med ical 6 mg in (after Branch NaCl 0.9% last (NS) 50 mL modificati piggyback on) on 04/25/20 at 0900, Until Discontinu ed, 50 mL sodium Yes 1{spray 1 Oliver, [facility] ers chloride 04-24 } Nasal, ity of (OCEAN MIST 17:30: PRN, [place] NASAL) 0.65 50 Starting Medi jenna % nasal Fri 04/24/20 Branch spray 1 at 1130, Oliver Until Discontinu ed, Routine, Surgery/Pr ocedure, Fro [...] Yes 8.6mg 8.6 mg, Uni vers (SENOKOT) 3-03 Oral, BID, ity of tablet 8.6 17:30: First dose [place] mg 00 on Mon Medical 04/22/20 at Branch 1130, Until Discontinu ed, Routine Polyethylen Yes 17g 17 g, Unive rs e Glycol 03 Oral, BID, ity o f 3350 17:30: First dose [place] (MIRALAX) 00 on Mon Medical powder 17 g 04/22/20 at Bra [facility] 1130, Until Discontinu ed, Routine bisacodyL Yes 10mg 10 mg, Univer s (DULCOLAX) 04-22 Rectal, ity of suppository 17:20: QDAILYPRN, [place] 10 mg 14 Starting Medical 04/22/20 Branch at 1120, Until Discontinu ed, Routine, Constipati on unresolved by oral medication s codeine-gua Yes 10mL 10 mL, Univ ers ifenesin 04-22 Oral, ity of (ROBITUSSIN 14:50: Q4HPRN, [place] as AC) 10-100 40 Starting Medic al mg/5 mL Mon04/22/20 Branch solution 10 at 0850, mL Until Discontinu ed, Routine, Cough ergocalcife Yes [id number] 50,000 Un gareth rol 04-21 Units, ity of (vitamin 15:00: Oral, [place] d2) 00 QWEEKLY, Medical (CALCIFEROL First dose [...] mg 2000, Until Discontinu ed, Routine budesonide- Yes 2{puff} 2 Puff, Univers formoteroL 04-21 Inhalation ity of (SYMBICORT) 02:00: , BID, [place] 160-4.5 00 First dose Medica l mcg/actuati on Mon Branch on inhaler 04/20/20 at 2 Puff 2000, Until Discontinu ed, Routine enoxaparin Yes 40mg 40 mg, Unive rs (LOVENOX) 04-20 Subcutaneo ity of injection 23:00: [place], DAILY, [place] 40 mg 00 First dose Medical on [facility] Branch 04/20/20 at 1700, Until Discontinu ed, Routine ondansetron Yes 4mg 4 mg, Slow Univers (ZOFRAN 04-20 IV Push, ity of (PF)) 19:01: Q6HPRN, [place] injection 4 50 Starting Medi jenna mg [facility] 04/20/20 Branch at 1301, Until Discontinu ed, Routine, Nausea and Vomiting (N/V) cefTRIAXone Yes 1000mg 1,000 mg, Univers (ROCEPHIN) 04-20 IV ity of 1,000 mg in 18:45: Piggyback, [place] NaCl 0.9% 00 Q24H ABX, Medic al (NS) 50 mL First dose Bra [facility] MINI-BAG on Mon04/20/20 at 1245, Until Discontinu ed, 50 mL
R radha for Anti-Infec tive: Empiric Therapy for Suspected Infection< br>Empiric Therapy Site: Respirator y
Durat ion of therapy: 72 hours iohexol 2020- No 100mL 100 mL, Unive rs (OMNIPAQUE 04-20 Intravenou it y of 350 18:05: 18:05 s, ONCE, 1 [place] BULK-100 00 :00 dose, [facility] Medica l mL) 04/20/20 at Ona injection 1230, 100 mL Routine zinc Yes 220mg 220 mg, Univers sulfate 04-20 Oral, ity of (ORAZINC) 18:00: DAILY, [place] capsule 220 00 First dose Me dical mg on [facility] Branch 04/20/20 at 1200, Until Discontinu ed, Routine thiamine Yes 100mg 100 mg, Unive rs (VITAMIN 3 Oral, ity of B1) tablet 18:00: DAILY, [place] 100 mg 00 First dose Medical on [facility] Branch 04/20/20 at 1200, Until Discontinu ed, Routine azithromyci 2020- No 500mg 500 mg, U nivers n 3-01 03-03 Oral, ity of (ZITHROMAX) 17:45: 14:52 DAILY, [...] 04-20 Oral, ity of (TYLENOL) 17:41: Q6HPRN, [place] tablet 650 38 Starting Medic al mg Mon04/20/20 Branch at 1141, Until Discontinu ed, Routine, Pain (scale 1-3) ibuprofen No 800mg 800 mg, Uni vers (IBU) 04-20 Oral, ity of tablet 800 17:00: 15:56 ONCE, 1 [place] as mg 00 :00 dose, [facility] Medical 04/20/20 at Branch 1100, GRAYSON budesonide- 2018-02 Yes 2{puff} Inhale 2 Univers formoterol 1-25 Puffs 2 ity of (SYMBICORT) 22:32: (two) [place] 160-4.5 24 times Medical mcg/actuati daily. Branch on inhaler predniSONE 2018-02 Yes [id number] 40mg Take 2 U nivers 20 mg 1-25 tablets by ity of tablet 00:00: mouth [place] 00 daily. Medical Branch albuterol 2018-02 Yes [id number] 2{puff} Inhale 2 Univers 90 1-25 Puffs ity of mcg/actuati 00:00: every 4 [place] as on inhaler 00 (four) Medical hours as Branch needed for Wheezing or Shortness of Breath. azithromyci 2018-02 Yes [id number] 250mg Take 1 Univers n 1-25 tablet by ity of (ZITHROMAX 00:00: mouth [place] Z-GREG) 250 00 SEE-INSTRU Med ical mg tablet CTIONS. Branch Take 500 mg day 1, then 250 mg days 2 to 5. benzonatate 2018-02 Yes [id number] 100mg Take 1 Univers 100 mg 1-25 capsule by ity of capsule 00:00: mouth 3 [place] 00 (three) Medical times Branch daily as needed for Cough. predniSONE 2018-02- No [id number] 40mg Take 2 Univers 20 mg 03-16 tablets by ity of tablet 00:00: 00:00 mouth [place] 00 :00 daily. Medical Branch albuterol 2018-02- No [id number] 2{puff} Inhale 2 Univers 90 03-16-08 Puffs ity of mcg/actuati 00:00: 00:00 every 4 [place] on inhaler 00 :00 (four) Medical hours as Branch needed for Wheezing or Shortness of Breath. azithromyci 2018-02- No [id number] 250mg Take 1 Univers n 03-16 tablet by ity of (ZITHROMAX 00:00: 00:00 mouth [place] Z-GREG) 250 00 :00 SEE-INSTRU Med ical mg tablet CTIONS. Branch Take 500 mg day 1, then 250 mg days 2 to 5. benzonatate 2018-02- No [id number] 100mg Take 1 Univers 100 mg 03-1608 capsule by ity of capsule 00:00: 00:00 [...] for Wheezing or Shortness of Breath. ALBUTEROL 2016-0 Yes 2.5mg Inhale 3 Uni vers 2.5 mg /3 5-20 mL every 6 ity of mL (0.083 00:00: (six) [place] %) 00 hours as Medical nebulizer needed for Bran ch solution Wheezing or Shortness of Breath. May also nebulize one extra every 6 hours. ALBUTEROL 2016- Yes 2{puff} Inhale 2 U nivers 90 5-20 Puffs ity of mcg/actuati 00:00: every 4 [place] as on inhaler 00 (four) Medical hours as Branch needed for Wheezing or Shortness of Breath. ALBUTEROL 2016- Yes 2.5mg Inhale 3 Uni vers 2.5 [...] for Wheezing or Shortness of Breath. ALBUTEROL 2016-0 Yes 2.5mg Inhale 3 Uni [...] EVERY 8 Medical HOURS Branch NEEDED meclizine Yes TAKE 1 Univer s (ANTIVERT) 8-21 TABLET BY ity of 25 mg 00:00: MOUTH [place] tablet 00 EVERY 8 Medical HOURS Branch NEEDED Vital Signs Vital Name Observation Time Observation Value Comments Source Systolic blood 2021-02-06 22:35:00 134 [facility]Hg[facility] Diastolic blood 2021-02-06 22:35:00 88 mm[Hg] [facility] Heart rate 2021-02-06 22:35:00 88 /min [facility] Body temperature 2021-02-06 22:35:00 36.39 Cierra [facility] Respiratory rate 2021-02-06 22:35:00 18 /min [facility] Body weight 2021-02-06 22:35:00 79.379 kg [facility] BMI 2021-02-06 22:35:00 26.61 kg/m2 [facility] Oxygen saturation in 2021-02-06 22:35:00 97 /[facility] Arterial blood by [facility] Pulse oximetry Branch Systolic blood 2020-04-27 21:00:00 107 mm[Hg] [facility] Diastolic blood 2020-04-27 21:00:00 66 mm[Hg] [facility] 2020-04-27 21:00:00 36.67 Cierra [facility] 2020-04-27 10:01:00 64 /min [facility] Respiratory rate 2020-04-27 10:01:00 18 /min [facility] Oxygen saturation in 2020-04-27 10:01:00 97 /min [facility] Arterial blood by [facility] Pulse oximetry Branch Body height 2020-04-20 17:45:00 172.7 cm [facility] Body weight 2020-04-20 17:45:00 79.47 kg [facility] BMI 2020-04-20 17:45:00 26.64 kg/m2 [facility] Procedures Procedure Date / Time Performing Clinician Source Performed XR CHEST 2 VW 2021-02-06 23:43:46 Kylah Bryson [facility] CONSENT/REFUSAL FOR 2021-02-06 22:29:32 Doctor Unassigned, No Un [facility] DIAGNOSIS AND TREATMENT Name [facility] BASIC METABOLIC PANEL 2020-04-27 11:39:00 Shannan Juan [facility] (NA, K, CL, CO2, [facility] Branch GLUCOSE, BUN, CREATININE, CA) CBC WITH DIFF 2020-04-27 11:39:00 [facility] BASIC METABOLIC PANEL 2020-04-26 10:47:00 [facility] ([facility], K, CL, CO2, [facility] GLUCOSE, BUN, CREATININE, CA) CBC WITH DIFF 2020-04-26 10:47:00 [facility] C-REACTIVE PROTEIN 2020-04-23 11:18:00 [facility]. METABOLIC PANEL 2020-04-23 11:18:00 Abdoulaye Dalton [facility] ([id number]) [facility] Branch CBC WITH DIFF 2020-04-23 11:18:00 Krystle [facility] PROCALCITONIN 2020-04-23 11:18:00 Krystle [facility] POCT GLUCOSE (AUTOMATED) 2020-04-22 17:38:00 Abdoulaye Dalton [facility] THYROID STIMULATING 2020-04-21 09:59:00 Abdoulaye Dalton [facility] HORMONE [facility] BASIC METABOLIC PANEL 2020-04-21 09:59:00 Kryslte [facility] (NA, K, CL, CO2, [facility] GLUCOSE, BUN, CREATININE, CA) CBC WITH DIFF 2020-04-21 09:59:00 Krystle [facility] URINALYSIS 2020-04-21 03:16:00 Ocsar Rodriguez [facility] PNEUMOCOCCAL ANTIGEN 2020-04-21 03:16:00 Krystle Abdoulaye [facility] LACTATE DEHYDROGENASE 2020-04-20 18:48:00 Krystle [facility] C-REACTIVE PROTEIN 2020-04-20 18:48:00 Krystle [facility] VITAMIN D, 25-OH 2020-04-20 18:48:[address] [facility] PROCALCITONIN 2020-04-20 18:48:00 [address] [facility] CT CHEST PULMONARY 2020-04-20 18:15:58 Krystle [facility] ANGIOGRAM [facility] HB ECG ROUTINE & RHYTHM 2020-04-20 16:14:47 Oscar Rodriguez [facility] STRIP [facility] XR CHEST 1 VW 2020-04-20 16:14:07 Oscar Rodriguez [facility] BLOOD CULTURE SCREEN 2020-04-20 16:05:00 Oscar Rodriguez [facility] COVID-19 (ID NOW RAPID 2020-04-20 16:05:00 [facility]LO[facility] 2020-04-20 16:04:00 Oscar Rodriguez [facility] CREATINE KINASE 2020-04-20 16:04:00 Abdoulaye Dalton [facility] FERRITIN SERUM 2020-04-20 16:04:00 Krystle [facility] TROPONIN I 2020-04-20 16:04:00 Oscar Rodriguez [facility] HEPATIC FUNCTION PANEL 2020-04-20 16:04:00 Oscar Rodriguez [facility] ([id number]) (ALB,T.PRO,BILI [facility] Branch T,BU/BC,ALT,AST,ALK PHOS) BASIC METABOLIC PANEL 2020-04-20 16:04:00 Oscar Rodriguez [facility] (NA, K, CL, CO2, Medical Branch GLUCOSE, BUN, CREATININE, CA) CBC WITH DIFF 2020-04-20 16:04:00 Oscar Rodriguez [facility] GLYCOSYLATED HEMOGLOBIN 2020-04-20 16:04:00 Abdoulaye Dalton [facility] (A1C) [facility] PROTHROMBIN TIME / INR 2020-04-20 16:04[facility]00 [facility] D-DIMER 2020-04-20 16:04:00 Abdoulaye Dalton [facility] ACTIVATED PARTIAL 2020-04-20 16:04:00 Oscar Rodriguez [facility] THRMPLAS ROBERTO [facility] N-TERMINAL PRO-BNP 2020-04-20 16:04:00 Oscar Rodriguez [facility] NOTICE OF PRIVACY 2020-04-20 15:19:40 Doctor Unassigned, No [facility] PRACTICES Name Medical Branch CONSENT/REFUSAL FOR 2020-04-20 15:19:24 Doctor Unassigned, No Un [facility] DIAGNOSIS AND TREATMENT Name Medical Branch CONSENT/REFUSAL FOR 2018-11-09 20:22:33 Doctor Unassigned, No [facility] DIAGNOSIS AND TREATMENT Name Medical Branch ASSIGNMENT OF BENEFITS 2018-11-09 20:22:19 Doctor Unassigned, No [facility] Encounters Start End Encounter Admission Attending Care Care Encounter Source Date/Time Date/Time Type Type Clinicians Facility Department ID 2020-12-20 Emergency [facility] [id number] Univers 02:01:55 ity of [facility] 2021-02-06 2021-02-06 Emergency X KM, [facility] ERT [id number] Univers 16:37:00 18:38:00 KYLAH itlindsey of [facility] 2021-02-06 2021-02-06 [facility] [id number] Univers 16:37:00 18:38:00 Kylah MOODY [id number] i ty of [place]2.[place].2.[place] [id number] [facility] 084 Branch 2021-02-06 2021-02-06 Orders Doctor [place] [id number] [id number] Univers 00:00:00 00:00:00 Only Unassigned, KENYATTA [id number] ity of [place] [facility] 4.2.7.2.686 Darius as [phone] [facility] 009 Branch 2020-05-07 2020-05-07 Patient Tin [facility] [id number] Univers 00:00:00 00:00:00 Outreach Davideulogio AKINS [id number] i ty of [place] 4[place]2.7.2.686 [place] [id number] Or dical 388 Branch 2020-04-29 2020-04-29 Patient Kylie Harding 1.2.840.114 [id number] Univers 00:00:00 00:00:00 Outreach E Slater [id number] i ty of [place] 4.2.7.2.686 [place] [id number] [facility] 403 Branch 2020-04-28 2020-04-28 Transition Justin Hinson [id number] Univers 00:00:00 00:00:00 of Care Saida Slater [id number] ity of [place] 4[place]2.7.2.686 [place] [id number] [facility] 403 Branch 2020-04-20 2020-04-27 Hospital Oscar Rodriguez [facility] 1.2.840.1 [id number] Univers 09:36:00 16:20:00 Encounter Krystle Abdoulaye Julio [id number] ity of [place] 4.2.7.2.686 [facility] [id number] [facility] 080 [place] 2020-04-20 2020-04-20 Orders Doctor [place] 1.2.840.114 [id number] Univers 00:00:00 00:00:00 Only Unassigned, KENYATTA 350.1.13.10 ity of [place] [facility] 4.2.7.2.686 Darius as [id number] [address] 2019-08-20 2019-08-20 Outpatient [facility] [id number] Univers 13:30:00 13:30:00 [id number] ity [facility] 2019-08-20 2019-08-20 Outpatient R RADIOLOGY [facility] [id number] Univers 00:00:00 00:00:00 ity [facility] 2018-11-09 2018-11-09 Orders Doctor CONRAD 1.2.840.114 [id number] 00:00:00 00:00:00 Only Unassigned, KENYATTA 350.1.13.10 [place] [facility] 4.2.7.2.686 [id number] 2018-11-09 2018-11-09 Orders Doctor CONRAD 1.2.840.114 [id number] Univers 00:00:00 00:00:00 Only Unassigned, KENYATTA 350.1.13.10 ity of [place] [facility] 4.2.7.2.686 Darius as [id number] [address] 2018-11-08 2018-11-08 Telephone Avila, [facility] [id number] 00:00:00 00:00:00 Marika Moody 350.1.13.10 [place] 4.2.7.2.686 Professio [id number] [address] 2018-11-08 2018-11-08 Telephone Avila, [facility] [id number] Univers 00:00:00 00:00:00 Marika Moody 350.1.13.10 i ty of [place] 4.2.7.2.686 Albertina Chavez [id number] Or dical nal 220 Branch Building Results Test Description Test Time Test Comments Results Result Comments Source BASIC METABOLIC PANEL (NA, K, CL, CO2, GLUCOSE, BUN, 2020-04 12:18:34 CREATININE, CA) Test Item Value Reference Range Interpretation Comme nts NA (test code = 3837373008) 137 mmol/L 135-145 K (test code = 4443952123) 4.0 mmol/L 3.5-5.0 CL (test code = 0244199644) 102 mmol/L 98-108 CO2 TOTAL (test code = 6211254472) 30 mmol/L 23-31 AGAP (test code = 4666704195) 2-16 BUN (test code = 0877541346) 22 mg/dL 7-23 GLUCOSE (test code = 5574915750) 102 mg/dL 70-110 CREATININE (test code = 0.69 mg/dL 0.60-1.25 1302611983) CALCIUM (test code = 7387525988) 8.5 mg/dL 8.6-10.6 L eGFR Calculation (Non- mL/min/1.73m2 Somali) (test code = 9530675375) eGFR Calculation ( mL/min/1.73m2 Somali) (test code = 3812906601) RUDI (test code = RUDI) Association of [...] tests). Lab Interpretation (test code = Abnormal 20302-2) [facility] WITH [id number] 12:08:31 Test Item Value Reference Range Interpretation [...] RDW-SD (test code = 39.8 fL 38.5-51.6 16141-8) RDW-CV (test code = 13.2 % 12.1-15.4 788-0) PLT (test code = See_Comment H [Automated 777-3) message] The system which generated this result transmit kendal reference range : 150 - 328 10*3/ ?L. The reference range was not u sed to interpret th is result as normal/abnormal . MPV (test code = 9.9 fL 9.8-13.0 63502-5) NRBC/100 WBC (test See_Comment [Automat ed code = 7186595204) message] The system which generated this result transmit kendal reference range : 0.0 - 10.0 /100 WBCs. The reference range was not used to interpret this result as normal/abnormal . NRBC x10^3 (test code <0.01 See_Comment [Auto mated = 8408213882) message] The system which generated this result transmit kendal reference range : 10*3/?L. The reference range was not used to interpret this result as normal/abnormal . GRAN MAT (NEUT) % 82.9 % (test code = 770-8) IMM GRAN % (test code 3.60 % = 1496770672) LYMPH % (test code = 8.3 % 736-9) MONO % (test code = 4.4 % 5905-5) EOS % (test code = 0.5 % 713-8) BASO % (test code = 0.3 % 706-2) GRAN MAT x10^3(ANC) 21.94 10*3/uL 1.99-6.95 H (test code = 1599798246) IMM GRAN x10^3 (test 0.95 10*3/uL 0.00-0.06 H code = 1055478085) LYMPH x10^3 (test code 2.21 10*3/uL 1.09-3.23 = 731-0) MONO x10^3 (test code 1.16 10*3/uL 0.36-1.02 H = 742-7) EOS x10^3 (test code = 0.13 10*3/uL 0.06-0.53 711-2) BASO x10^3 (test code 0.09 10*3/uL 0.01-0.09 = 704-7) Lab Interpretation Abnormal (test code = 56301-4) [facility] WITH [id number] 12:11:01 Test Item Value Reference Range Interpretation Comments WBC (test code = See_Comment H [Automated 4390-2) message] The system which generated this result [...] RDW-SD (test code = 40.9 fL 38.5-51.6 25066-6) RDW-CV (test code = 13.2 % 12.1-15.4 788-0) PLT (test code = See_Comment [Automated 777-3) message] The system which generated this result transmit kendal reference range : 150 - 328 10*3/ ?L. The reference range was not u sed to interpret th is result as normal/abnormal . MPV (test code = 10.9 fL 9.8-13.0 29808-5) NRBC/100 WBC (test See_Comment [Automat ed code = 7331397427) message] The system which generated this result transmit kendal reference range : 0.0 - 10.0 /100 WBCs. The reference range was not used to interpret this result as normal/abnormal . NRBC x10^3 (test code <0.01 See_Comment [Auto mated = 8641779690) message] The system which generated this result transmit kendal reference range : 10*3/?L. The reference range was not used to interpret this result as normal/abnormal . GRAN MAT (NEUT) % 80.8 % (test code = 770-8) IMM GRAN % (test code 5.80 % = 3479691535) LYMPH % (test code = 7.4 % 736-9) MONO % (test code = 4.9 % 5905-5) EOS % (test code = 0.6 % 713-8) BASO % (test code = 0.5 % 706-2) GRAN MAT x10^3(ANC) 17.18 10*3/uL 1.99-6.95 H (test code = 9891741113) IMM GRAN x10^3 (test 1.23 10*3/uL 0.00-0.06 H code = 1405463423) LYMPH x10^3 (test code 1.57 10*3/uL 1.09-3.23 = 731-0) MONO x10^3 (test code 1.04 10*3/uL 0.36-1.02 H = 742-7) EOS x10^3 (test code = 0.13 10*3/uL 0.06-0.53 711-2) BASO x10^3 (test code 0.10 10*3/uL 0.01-0.09 H = 704-7) Lab Interpretation Abnormal (test code = 93480-6) [facility] METABOLIC PANEL (NA, K, CL, CO2, GLUCOSE, BUN, CREATININE, CA)2020-04-26 12:01:30 Test Item Value Reference Range Interpretation Comments NA (test code = 135 mmol/L 135-145 5688787445) K (test code = 4.3 mmol/L 3.5-5.0 1436703046) CL (test code = 102 mmol/L 98-108 1774132317) CO2 TOTAL (test code = 27 mmol/L 23-31 7360932083) AGAP (test code = 2-16 9877851117) BUN (test code = 21 mg/dL 7-23 6357562457) GLUCOSE (test code = 99 mg/dL 70-110 0608124046) CREATININE (test code = 0.57 mg/dL 0.60-1.25 L 1935265915) CALCIUM (test code = 8.3 mg/dL 8.6-10.6 L 0634387051) eGFR Calculation mL/min/1.73m2 (Non-) (test code = 7302489279) eGFR Calculation mL/min/1.73m2 () (test code = 5184514113) RUDI (test code = RUDI) Association of [...] tests). Lab Interpretation Abnormal (test code = 03097-3) [facility]BL[facility]ULT[facility] [id number] 17:01:00 Test Item Value Reference Range Interpretation Comments Blood Culture-Aerobic No organisms No growth Previo us (test code = 63697-0) isolated prelim inary verified result was Culture In Progress on 04/20/2020 at 140 2 CSTPrevious preliminary verified result was No growth a t 24 hours on 04/21/2020 at 110 1 CSTPrevious preliminary verified result was No growth a t 48 hours on 04/22/2020 at 110 1 CSTPrevious preliminary verified result was No growth a t 72 hours on 04/23/2020 at 110 1 [employer] Blood No organisms No growth Previous Culture-Anaerobic isolated preliminar y (test code = 64926-5) verifi ed result was Culture In Progress on 04/20/2020 at 140 2 CSTPrevious preliminary verified result was No growth a t 24 hours on 04/21/2020 at 110 1 CSTPrevious preliminary verified result was No growth a t 48 hours on 04/22/2020 at 110 1 CSTPrevious preliminary verified result was No growth a t 72 hours on 04/23/2020 at 110 1 [employer] Lab Interpretation Normal (test code = 84124-6) [facility] [id number] 17:01:00 Test Item Value Reference Range Interpretation Comments Blood Culture-Aerobic No organisms No growth Previo us (test code = 48336-6) isolated prelim inary verified result was Culture In Progress on 04/20/2020 at 140 2 CSTPrevious preliminary verified result was No growth a t 24 hours on 04/21/2020 at 110 1 CSTPrevious preliminary verified result was No growth a t 48 hours on 04/22/2020 at 110 1 CSTPrevious preliminary verified result was No growth a t 72 hours on 04/23/2020 at 110 1 [employer] Blood No organisms No growth Previous Culture-Anaerobic isolated preliminar y (test code = 86524-3) verifi ed result was Culture In Progress on 04/20/2020 at 140 2 CSTPrevious preliminary verified result was No growth a t 24 hours on 04/21/2020 at 110 1 CSTPrevious preliminary verified result was No growth a t 48 hours on 04/22/2020 at 110 1 CSTPrevious preliminary verified result was No growth a t 72 hours on 04/23/2020 at 110 1 [employer] Lab Interpretation Normal (test code = 51524-2) [facility] ResourcesC-REACTIVE [id number] 12:58:00 Test Item Value Reference Range Interpretation Comments CRP (test code = 6434971346) 18.1 mg/dL <0.8 H Lab Interpretation (test code = Abnormal 31503-3) [facility] ResourcesPROCALCITONIN2021-03-04 17:45:00 Test Item Value Reference Range Interpretation Comments Procalcitonin (test 0.41 ng/mL <0.07 H code = 9702251413) RUDI (test code = RUDI) INTERPRETATION OF [...] lung abscess/empyema. For further information please refer to:[email or web address] Lab Interpretation Abnormal (test code = 25010-4) [facility] WITH [id number] 14:42:00 Test Item Value Reference Range Interpretation Comments WBC (test code = See_Comment H [Automated 2990-2) message] The system which generated this result [...] RDW-SD (test code = 41.8 fL 38.5-51.6 84281-0) RDW-CV (test code = 13.8 % 12.1-15.4 788-0) PLT (test code = See_Comment [Automated 777-3) message] The system which generated this result transmit kendal reference range : 150 - 328 10*3/ ?L. The reference range was not u sed to interpret th is result as normal/abnormal . MPV (test code = 9.8 fL 9.8-13.0 21902-2) NRBC/100 WBC (test See_Comment [Automat ed code = 1693318279) message] The system which generated this result transmit kendal reference range : 0.0 - 10.0 /100 WBCs. The reference range was not used to interpret this result as normal/abnormal . NRBC x10^3 (test code <0.01 See_Comment [Auto mated = 5905977274) message] The system which generated this result transmit kendal reference range : 10*3/?L. The reference range was not used to interpret this result as normal/abnormal . GRAN MAT (NEUT) % 68.9 % (test code = 770-8) IMM GRAN % (test code 2.40 % = 6250903924) LYMPH % (test code = 8.1 % 736-9) MONO % (test code = 11.7 % 5905-5) EOS % (test code = 8.3 % 713-8) BASO % (test code = 0.6 % 706-2) GRAN MAT x10^3(ANC) 10.53 10*3/uL 1.99-6.95 H (test code = 3883708957) IMM GRAN x10^3 (test 0.36 10*3/uL 0.00-0.06 H code = 5360321712) LYMPH x10^3 (test code 1.23 10*3/uL 1.09-3.23 = 731-0) MONO x10^3 (test code 1.79 10*3/uL 0.36-1.02 H = 742-7) EOS x10^3 (test code = 1.26 10*3/uL 0.06-0.53 H 711-2) BASO x10^3 (test code 0.09 10*3/uL 0.01-0.09 = 704-7) BANDS (test code = Increased A 3840498225) Lab Interpretation Abnormal (test code = 33352-1) [facility]. METABOLIC PANEL (42052)2020-04-23 13:01:00 Test Item Value Reference Range Interpretation Comments NA (test code = 134 mmol/L 135-145 L 5797957220) K (test code = 4.2 mmol/L 3.5-5.0 7360893681) CL (test code = 100 mmol/L 98-108 7899340216) CO2 TOTAL (test code = 28 mmol/L 23-31 0971360554) AGAP (test code = 2-16 2850133436) BUN (test code = 22 mg/dL 7-23 8422082082) GLUCOSE (test code = 100 mg/dL 70-110 4243606890) CREATININE (test code = 0.61 mg/dL 0.60-1.25 7531479948) TOTAL BILI (test code = 0.7 mg/dL 0.1-1.7 4404720135) CALCIUM (test code = 8.4 mg/dL 8.6-10.6 L 3774137027) T PROTEIN (test code = 5.6 g/dL 6.3-8.2 L 7705537400) ALBUMIN (test code = 3.0 g/dL 3.5-5.0 L 7945714809) ALK PHOS (test code = 87 U/L 34-122 4271406145) ALTv (test code = 60 U/L 5-50 H 1742-6) AST(SGOT) (test code = 38 U/L 13-40 8897777251) eGFR Calculation mL/min/1.73m2 (Non-) (test code = 6856025952) eGFR Calculation mL/min/1.73m2 () (test code = 8916863973) RUDI (test code = RUDI) Association of [...] tests). Lab Interpretation Abnormal (test code = 07391-1) [facility] ResourcesPOCT GLUCOSE (AUTOMATED)2020-04-22 18:15:00 Test Item Value Reference Range Interpretation Comments POCT GLU (test code = 2341172231) 98 mg/dL 70-110 Lab Interpretation (test code = Normal 54401-5) [facility] ResourcesTHYROID STIMULATING [id number] 23:03:00 Test Item Value Reference Range Interpretation Comments TSH (test code = See_Comment Biotin has been 1107040815) reported to cau se a negative bias, interpret resul ts relative to pat mindy's use of biotin. [Automated mess age] The system whic h generated this result transmitted ref erence range: 0.45 - 4 .70 mIU/L. The refe rence range was not u sed to interpret this result as normal/abnor mal. Lab Interpretation (test Normal code = 02849-8) [facility] ResourcesC-REACTIVE [id number] 19:44:00 Test Item Value Reference Range Interpretation Comments CRP (test code = 6852350452) 35.9 mg/dL <0.8 H Lab Interpretation (test code = Abnormal 47555-8) [facility] with [id number] 13:01:00 Test Item Value Reference Range Interpretation Comments WBC (test code = See_Comment H [Automated 6290-2) message] The system which generated this result transmit knedal reference range : 4.20 - 10.70 10*3/?L. The reference range was not used to interpret this result as normal/abnormal . RBC (test code = See_Comment [Automated 639-8) message] The system which generated this result [...] RDW-SD (test code = 42.5 fL 38.5-51.6 97536-3) RDW-CV (test code = 13.7 % 12.1-15.4 788-0) PLT (test code = See_Comment [Automated 777-3) message] The system which generated this result transmit kendal reference range : 150 - 328 10*3/ ?L. The reference range was not u sed to interpret th is result as normal/abnormal . MPV (test code = 10.4 fL 9.8-13.0 25323-1) NRBC/100 WBC (test See_Comment [Automat ed code = 0062003003) message] The system which generated this result transmit kendal reference range : 0.0 - 10.0 /100 WBCs. The reference range was not used to interpret this result as normal/abnormal . NRBC x10^3 (test code <0.01 See_Comment [Auto mated = 8183852104) message] The system which generated this result transmit kendal reference range : 10*3/?L. The reference range was not used to interpret this result as normal/abnormal . GRAN MAT (NEUT) % 85.9 % (test code = 770-8) IMM GRAN % (test code 1.20 % = 3593633086) LYMPH % (test code = 4.4 % 736-9) MONO % (test code = 7.9 % 5905-5) EOS % (test code = 0.3 % 713-8) BASO % (test code = 0.3 % 706-2) GRAN MAT x10^3(ANC) 15.92 10*3/uL 1.99-6.95 H (test code = 2538020524) IMM GRAN x10^3 (test 0.23 10*3/uL 0.00-0.06 H code = 0142530019) LYMPH x10^3 (test code 0.81 10*3/uL 1.09-3.23 L = 731-0) MONO x10^3 (test code 1.46 10*3/uL 0.36-1.02 H = 742-7) EOS x10^3 (test code = 0.05 10*3/uL 0.06-0.53 L 711-2) BASO x10^3 (test code 0.05 10*3/uL 0.01-0.09 = 704-7) Lab Interpretation Abnormal (test code = 66670-5) [facility] Metabolic Panel (NA, K, CL, CO2, GLUCOSE, BUN, CREATININE, CA)2020-04-21 11:24:00 Test Item Value Reference Range Interpretation Comments NA (test code = 133 mmol/L 135-145 L 1782116940) K (test code = 4.2 mmol/L 3.5-5.0 9603651428) CL (test code = 99 mmol/L 98-108 3515964712) CO2 TOTAL (test code = 26 mmol/L 23-31 4870561603) AGAP (test code = 2-16 6244844132) BUN (test code = 22 mg/dL 7-23 7118124858) GLUCOSE (test code = 92 mg/dL 70-110 0452515480) CREATININE (test code = 1.04 mg/dL 0.60-1.25 4633479797) CALCIUM (test code = 8.4 mg/dL 8.6-10.6 L 1205441594) eGFR Calculation mL/min/1.73m2 (Non-) (test code = 6068436070) eGFR Calculation mL/min/1.73m2 () (test code = 3227113134) RUDI (test code = RUDI) Association of [...] tests). Lab Interpretation Abnormal (test code = 51480-1) [facility] ResourcesLEGIONELLA URINARY ANTIGEN [id number] 08:59:00 Test Item Value Reference Range Interpretation Comments Legionella Urinary Negative Negative Antigen (test code = 9894032250) RUDI (test code = RUDI) Negative for [...] test. Lab Interpretation (test Normal code = 64122-4) [facility] ResourcesPNEUMOCOCCAL [id number] 08:56:00 Test Item Value Reference Range Interpretation Comments S. pneumoniae antigen (test code = Negative Negative 2106432224) Lab Interpretation (test code = Normal 13620-3) [facility] ResourcesURINALYSIS2021-03-02 04:35:00 Test Item Value Reference Range Interpretation Comments APPEARANCE (test code Slightly Cloudy Clear A = 7796446648) COLOR (test code = Yellow Yellow 3413440117) PH (test code = 4.8-8.0 3619938594) SP GRAVITY (test code 1.003-1.030 = 1520134637) GLU U QUAL (test code 100 mg/dL Negative A = 3970771508) BLOOD (test code = Small Negative A 3725885492) KETONES (test code = Negative Negative 2457255671) PROTEIN (test code = 100 mg/dL Negative A 2887-8) UROBILIN (test code = 1.0 mg/dL See_Comment [Auto mated 4963446382) message] The system which generated this result transmit kendal reference range : 0-1.0 mg/dL. Th e reference range was not used to interpret this result as normal/abnormal . BILIRUBIN (test code Negative Negative = 0097943976) NITRITE (test code = Negative Negative 3667924112) LEUK DE (test code Negative Negative = 2698033285) RBC/HPF (test code = See_Comment H [Autom ated 8811763314) message] The system which generated this result transmit kendal reference range : 0 - 3 HPF. The reference range was not used to interpret this result as normal/abnormal . WBC/HPF (test code = See_Comment [Autom ated 3742303434) message] The system which generated this result transmit kendal reference range : 0 - 5 HPF. The reference range was not used to interpret this result as normal/abnormal . BACTERIA (test code = Few Negative A 7911717347) MUCOUS (test code = Marked Negative LPF A 3666039037) SQ EPITH (test code = HPF 3328535339) GRAN CASTS (test code See_Comment H [Auto mated = 9527185156) message] The system which generated this result transmit kendal reference range : <=1 LPF. The reference range was not used to interpret this result as normal/abnormal . Lab Interpretation Abnormal (test code = 49447-5) [facility] ResourcesPROCALCITONIN2021-03-02 00:21:00 Test Item Value Reference Range Interpretation Comments Procalcitonin (test 1.37 ng/mL <0.07 H code = 5141315402) RUDI (test code = RUDI) INTERPRETATION OF [...] lung abscess/empyema. For further information please refer to:[email or web address] Lab Interpretation Abnormal (test code = 65754-2) [facility] ResourcesVITAMIN D, [id number] 23:26:00 Test Item Value Reference Range Interpretation Comments VIT D 25OH (test code = 33 ng/mL 25-80 79567-7) RUDI (test code = RUDI) Deficiency: <20 ng/mLInsufficiency : 20-24 ng/mLOptimal: 25-80 ng/mL Lab Interpretation (test Normal code = 29458-9) [facility] ResourcesGLYCOSYLATED HEMOGLOBIN (A1C)2020-04-20 21:23:00 Test Item Value Reference Range Interpretation Comments HGB A1C (test code = 5.9 % 4.0-6.0 4548-4) RUDI (test code = RUDI) %A1C (NGSP) Interpretation (ADA)4.8-5.6 ? ? Normal or (Non-Diabetic Range)5.7-6.4 ? ? Increased Risk (Pre-Diabetic)>6.5 ?Diabetes Indicated Lab Interpretation Normal (test code = 95341-9) [facility] ResourcesCT CHEST PULMONARY [id number] 20:27:24 No acute pulmonary embolus. Diffuse groundglass/nodular opacities predominantly within the periphery ofboth lungs, consistent with known Covid-19 infection. I, Sarah Mittal MD., have reviewed this study and agree [...] reviewed this study and agree with the abovereport.[facility] LACTATE [id number] 19:40:00 Test Item Value Reference Range Interpretation Comments LDH (test code = 0434270693) 706 U/L 300-600 H Lab Interpretation (test code = Abnormal 19388-3) [facility] ResourcesFERRITIN [id number] 18:54:00 Test Item Value Reference Range Interpretation Comments FERRITIN (test code = 428.0 ng/mL 18.0-464.0 5099596056) RUDI (test code = RUDI) Biotin has been reported to cause a negative bias, interpret results relative to patient's use of biotin. Lab Interpretation (test Normal code = 90254-3) [facility] ResourcesD-[id number] 18:31:00 Test Item Value Reference Interpretation Comments Range D-DIMER (test code = <0.27 See_Comment [Autom ated 6363578525) message] The system which generated this result [...] diagnosis. Lab Interpretation Normal (test code = 45493-6) [facility] ResourcesCREATINE [id number] 18:18:00 Test Item Value Reference Range Interpretation Comments CK (test code = 3294690449) 61 U/L 33-194 Lab Interpretation (test code = Normal 29638-8) [facility] ResourcesCBC with [id number] 17:21:00 Test Item Value Reference Range Interpretation Comments WBC (test code = See_Comment H [Automated 9937-2) message] The system which generated this result transmit kendal reference range : 4.20 - 10.70 10*3/?L. The reference range was not used to interpret this result as normal/abnormal . RBC (test code = See_Comment H [Automated 579-8) message] The system which generated this result [...] RDW-SD (test code = 43.2 fL 38.5-51.6 75359-2) RDW-CV (test code = 13.7 % 12.1-15.4 788-0) PLT (test code = See_Comment [Automated 777-3) message] The system which generated this result transmit kendal reference range : 150 - 328 10*3/ ?L. The reference range was not u sed to interpret th is result as normal/abnormal . MPV (test code = 9.9 fL 9.8-13.0 09249-7) NRBC/100 WBC (test See_Comment [Automat ed code = 6241623175) message] The system which generated this result transmit kendal reference range : 0.0 - 10.0 /100 WBCs. The reference range was not used to interpret this result as normal/abnormal . NRBC x10^3 (test code <0.01 See_Comment [Auto mated = 4923845013) message] The system which generated this result transmit kendal reference range : 10*3/?L. The reference range was not used to interpret this result as normal/abnormal . GRAN MAT (NEUT) % 92.7 % (test code = 770-8) IMM GRAN % (test code 1.10 % = 8108508678) LYMPH % (test code = 1.2 % 736-9) MONO % (test code = 4.8 % 5905-5) EOS % (test code = 0.0 % 713-8) BASO % (test code = 0.2 % 706-2) GRAN MAT x10^3(ANC) 21.85 10*3/uL 1.99-6.95 H (test code = 1052870336) IMM GRAN x10^3 (test 0.27 10*3/uL 0.00-0.06 H code = 5162017898) LYMPH x10^3 (test code 0.28 10*3/uL 1.09-3.23 L = 731-0) MONO x10^3 (test code 1.13 10*3/uL 0.36-1.02 H = 742-7) EOS x10^3 (test code = <0.03 0.06-0.53 L 711-2) BASO x10^3 (test code 0.05 10*3/uL 0.01-0.09 = 704-7) Lab Interpretation Abnormal (test code = 70610-1) [facility] ResourcesXR CHEST 1 [id number] 16:55:00 Moderate multifocal pneumonia findings, apparently Covid [...] appear normalIMPRESSIONModerate multifocal pneumonia findings, apparently Covid 19.[facility] ResourcesHepatic Function Panel (ALB, T.PRO, BILI T, BU/BC, ALT, AST, ALK PHOS)2020-04-20 16:54:00 Test Item Value Reference Range Interpretation Comments TOTAL BILI (test code = 5603017653) 1.2 mg/dL 0.1-1.1 H BILI UNCON (test code = 6688791285) 0.6 mg/dL 0.1-1.1 BILI CONJ (test code = 0790200287) 0.0 mg/dL 0.0-0.3 T PROTEIN (test code = 6737251546) 7.8 g/dL 6.3-8.2 ALBUMIN (test code = 8357140397) 4.4 g/dL 3.5-5.0 ALK PHOS (test code = 5826834962) 132 U/L 34-122 H ALTv (test code = 1742-6) 98 U/L 5-50 H AST(SGOT) (test code = 6863022064) 59 U/L 13-40 H Lab Interpretation (test code = Abnormal 50599-4) [facility] ResourcesMaria A [id number] 16:49:00 Test Item Value Reference Range Interpretation Comments TROPONIN I (test 0.001 ng/mL See_Comment [Automated code = 0622255218) message] The system which generated this result [...] ? Lab Interpretation Normal (test code = 33484-3) [facility] ResourcesN-TERMINAL [id number] 16:46:00 Test Item Value Reference Range Interpretation Comments NT-proBNP (test code 91 pg/mL See_Comment [Autom ated = 5940068085) message] The system which generated this result transmitted reference range : <=125. The reference range was not used to interpret this result as normal/abnormal . RUDI (test code = RUDI) Biotin has been reported to cause a negative bias, interpret results relative to patient's use of biotin. Lab Interpretation Normal (test code = 73365-2) [facility] ResourcesaPTT2021-03-01 16:42:00 Test Item Value Reference Range Interpretation Comments APTT Patient (test See_Comment [Automat ed code = 3173-2) message] The system which generated this result transmitted reference range : 23 - 38 Seconds . The reference range was not used to interpr et this result as normal/abnormal . RUDI (test code = RUDI) The [facility] patient population mean normal value for aPTT is 30 seconds. Lab Interpretation Normal (test code = 82742-9) [facility] ResourcesProthrombin Time (PT) / [id number] 16:40:00 Test Item Value Reference Range Interpretation Comments PROTIME PATIENT (test See_Comment [Auto mated message] code = 5964-2) The system wh ich generated this result transmitted ref erence range: 12.0 - 1 4.7 Seconds. The re ference range was not u sed to interpret this result as normal/abnor mal. INR (test code = 6301-6) Nor mal INR <1.1; Warfarin Therap eutic range 2.0 to 3. 0 or 2.5 to 3.5, dep ending upon the indica tions. Lab Interpretation (test Normal code = 44591-9) [facility] ResourcesBasic Metabolic Panel (NA, K, CL, CO2, GLUCOSE, BUN, CREATININE, CA)2020-04-20 16:37:00 Test Item Value Reference Range Interpretation Comments NA (test code = 136 mmol/L 135-145 5302805900) K (test code = 4.0 mmol/L 3.5-5.0 7012120885) CL (test code = 99 mmol/L 98-108 1411195413) CO2 TOTAL (test code = 25 mmol/L 23-31 5502269327) AGAP (test code = 2-16 3171789498) BUN (test code = 22 mg/dL 7-23 9678712209) GLUCOSE (test code = 155 mg/dL 70-110 H 7299759052) CREATININE (test code = 0.82 mg/dL 0.60-1.25 1978072434) CALCIUM (test code = 9.0 mg/dL 8.6-10.6 8518842816) eGFR Calculation mL/min/1.73m2 (Non-) (test code = 3609169739) eGFR Calculation mL/min/1.73m2 () (test code = 9721163406) RUDI (test code = RUDI) Association of [...] tests). Lab Interpretation Abnormal (test code = 23198-7) [facility] ResourcesCOVID-19 (ID NOW RAPID TESTING)2020-04-20 16:37:00 Test Item Value Reference Range Interpretation Comments SARS-CoV-2 Rapid ID NOW Positive Not Detected A (test code = 36856-5) RUDI (test code = RUDI) ID NOW COVID-19 Assay is an isothermal nucleic acid amplification test intended for the qualitative detection of nucleic acid from SARS-CoV-2 viral RNA in nasopharyngeal ([employer]) specimens. It is used under Emergency Use [...] indicated. Lab Interpretation Abnormal (test code = 68000-5) [facility]
[2021-03-13] MEDS ORDERED: ALBUTEROL 2.5 MG/3 ML NEB SOL ONE (02:32)
[2021-03-13] MEDS ORDERED: predniSONE 20 MG TAB ONE (02:32)
[2021-03-13] MEDS ORDERED: IPRATROPIUM BROM 0.5MG/2.5ML ONE (02:33)
[2021-03-13 03:23] LABS: SARS-COV-2 RT PCR NEGATIVE (NEGATIVE)
--- NOTE | 2021-03-13 04:17 | ER ---
Nurse's Notes [facility] Name: Qamar Mayorga Age: 41 yrs Sex: Male : 1980 Arrival Date: 03/13/2021 Time: 01:28 Bed 10 Private MD: Diagnosis: Unspecified asthma with (acute) exacerbation Presentation: 03/13 01:33 Chief complaint: Patient states: "I'm having an asthma flair up". Coronavirus screen: as6 At this time, the client does not indicate any symptoms associated with coronavirus-19. Ebola Screen: No symptoms or risks identified at this time. Initial Sepsis Screen: Does the patient meet any 2 criteria? No. Patient's initial sepsis screen is negative. Does the patient have a suspected source of infection? No. Patient's initial sepsis screen is negative. Risk Assessment: Do you want to hurt yourself or someone else? Patient reports no desire to harm self or others. Onset of symptoms was March 06, 2021. 01:33 Method Of Arrival: Ambulatory as6 01:33 Acuity: JAMSHID 3 as6 Triage Assessment: 01:36 General: Appears in no apparent distress. Behavior is calm, cooperative. Pain: Denies as6 pain. Respiratory: Reports shortness of breath Airway is patent Trachea midline Respiratory effort is even, unlabored, Respiratory pattern is regular, symmetrical, Onset: The symptoms/episode began/occurred gradually, the patient has mild shortness of breath. Historical: - Allergies: 01:35 Dilantin; as6 - Home Meds: 01:35 albuterol sulfate 0.63 mg/3 mL Inhl nebu [Active]; Flonase 50 mcg/actuation Nasal spsn as6 1 spray 2 times per day [Active]; levothyroxine oral [Active]; Zyrtec 10 mg Oral chew 1 tab once daily [Active]; - PMHx: 01:35 Asthma; hyperthyroidism; Pneumonia; seasonal allergies; as6 - PSHx: 01:35 Thyroidectomy; as6 - Immunization history:: Client reports having NOT received the Covid vaccine. - Social history:: Smoking status: Patient denies any tobacco usage or history of. Screenin:17 Abuse screen: Denies threats or abuse. Denies injuries from another. Nutritional tw5 screening: No deficits noted. Tuberculosis screening: No symptoms or risk factors identified. Fall Risk None identified. Assessment: 02:53 General: Appears in no apparent distress. Behavior is calm, cooperative. Neuro: Level as6 of Consciousness is awake, alert, obeys commands, Oriented to person, place, time, situation. Cardiovascular: Capillary refill < 3 seconds Patient's skin is warm and dry. Rhythm is regular. Respiratory: Airway is patent Trachea midline Respiratory effort is even, unlabored, Respiratory pattern is regular, symmetrical, Breath sounds with wheezes bilaterally. Derm: Skin is intact, is healthy with good turgor. 04:17 Reassessment: Patient states feeling better. Patient states symptoms have improved. tw5 General: Reports "I am feeling a little better.". Vital Signs: 01:33 BP 137 / 90; Pulse 76; Resp 22 S; Temp 97.0(TE); Pulse Ox 98% on R/A; Weight 88.45 kg as6 (R); Height 5 ft. 9 in. (175.26 cm) (R); Pain 0/10; 04:17 BP 139 / 86; Pulse 80; Resp 18; Pulse Ox 98% on R/A; as6 01:33 Body Mass Index 28.80 (88.45 kg, 175.26 cm) as6 ED Course: 01:28 Patient arrived in ED. ja2 01:35 Triage completed. as6 01:36 Arm band placed on. as6 01:50 Devyn Fernandez MD is Attending Physician. mh7 02:28 Erasmo Jo, RN is Primary Nurse. as6 02:40 COVID-19/FLU A+B (Document "Date of Onset" if Symptomatic) Sent. as6 04:17 Patient has correct armband on for positive identification. tw5 04:17 No provider procedures requiring assistance completed. Patient did not have IV access tw5 during this emergency room visit. Administered Medications: 02:40 Drug: Albuterol - atroVENT (ipratropium) (3:1) (2.5 mg - 0.5 mg) 3 ml Route: Nebulizer; as6 04:17 Follow up: Response: No adverse reaction; Wheezing diminished as6 02:40 Drug: predniSONE 60 mg Route: PO; as6 04:17 Follow up: Response: No adverse reaction as6 Outcome: 04:16 Discharge ordered by . mh7 04:21 Discharged to home ambulatory. tw5 04:21 Condition: improved 04:21 Discharge instructions given to patient, Instructed on discharge instructions, follow up and referral plans. medication usage, Demonstrated understanding of instructions, follow-up care, medications, Prescriptions given X 3. 04:21 Patient left the ED. tw5 Signatures: Devyn Fernandez MD MD mh7 Jen Bean Tiffany tw5 Erasmo Jo, RN RN as6
--- NOTE | 2021-03-13 04:17 | EDPHYS ---
Physician Documentation [facility] Name: Qamar Mayorga Age: 41 yrs Sex: Male : 1980 Arrival Date: 03/13/2021 Time: 01:28 Bed 10 Private MD: ED Physician Devyn Fernandez HPI: 03/13 02:18 This 41 yrs old Male presents to ER via Ambulatory with complaints of Breathing mh7 Difficulty. 02:18 The patient presents to the emergency department with wheezing, Current therapy: mh7 albuterol nebs, that began after exposure to animal dander, after exposure to pollen, the patient was reported to have audible wheezing, non-productive cough, trouble breathing, Pre-hospital care: med neb, Xopenex. 02:18 Onset: The symptoms/episode began/occurred 1 week(s) ago. Modifying factors: The mh7 symptoms are alleviated by nebulizer treatment, the symptoms are aggravated by animal dander, cold weather, pollen. Associated signs and symptoms: Pertinent negatives: chest pain, choking, fever, headache, nausea, palpitations, rash, vomiting. Severity of symptoms: At their worst the symptoms were moderate 3 day(s) ago, in the emergency department the symptoms have improved moderately. The patient has experienced similar episodes in the past, chronically. States that he has been having an asthma exacerbation for the past week with noted wheezing and coughing.. Historical: - Allergies: 01:35 Dilantin; as6 - Home Meds: 01:35 albuterol sulfate 0.63 mg/3 mL Inhl nebu [Active]; Flonase 50 mcg/actuation Nasal spsn as6 1 spray 2 times per day [Active]; levothyroxine oral [Active]; Zyrtec 10 mg Oral chew 1 tab once daily [Active]; - PMHx: 01:35 Asthma; hyperthyroidism; Pneumonia; seasonal allergies; as6 - PSHx: 01:35 Thyroidectomy; as6 - Immunization history:: Client reports having NOT received the Covid vaccine. - Social history:: Smoking status: Patient denies any tobacco usage or history of. ROS: 02:18 Constitutional: Negative for fever, chills, and weight loss, Eyes: Negative for injury, mh7 pain, redness, and discharge, ENT: Negative for injury, pain, and discharge, Neck: Negative for injury, pain, and swelling, Cardiovascular: Negative for chest pain, palpitations, and edema, Abdomen/GI: Negative for abdominal pain, nausea, vomiting, diarrhea, and constipation, Back: Negative for injury and pain, : Negative for injury, bleeding, discharge, and swelling, MS/Extremity: Negative for injury and deformity, Skin: Negative for injury, rash, and discoloration, Neuro: Negative for headache, weakness, numbness, tingling, and seizure, Psych: Negative for depression, anxiety, suicide ideation, homicidal ideation, and hallucinations, Allergy/Immunology: Negative for hives, rash, and allergies, Endocrine: Negative for neck swelling, polydipsia, polyuria, polyphagia, and marked weight changes, Hematologic/Lymphatic: Negative for swollen nodes, abnormal bleeding, and unusual bruising. Exam: 02:18 Constitutional: This is a well developed, well nourished patient who is awake, alert, mh7 and in no acute distress. Head/Face: Normocephalic, atraumatic. Eyes: Pupils equal round and reactive to light, extra-ocular motions intact. Lids and lashes normal. Conjunctiva and sclera are non-icteric and not injected. Cornea within normal limits. Periorbital areas with no swelling, redness, or edema. Neck: Trachea midline, no thyromegaly or masses palpated, and no cervical lymphadenopathy. Supple, full range of motion without nuchal rigidity, or vertebral point tenderness. No Meningismus. Chest/axilla: Normal chest wall appearance and motion. Nontender with no deformity. No lesions are appreciated. Cardiovascular: Regular rate and rhythm with a normal S1 and S2. No gallops, murmurs, or rubs. Normal PMI, no JVD. No pulse deficits. 02:18 Abdomen/GI: Soft, non-tender, with normal bowel sounds. No distension or tympany. No guarding or rebound. No evidence of tenderness throughout. Back: No spinal tenderness. No costovertebral tenderness. Full range of motion. Skin: Warm, dry with normal turgor. Normal color with no rashes, no lesions, and no evidence of cellulitis. MS/ Extremity: Pulses equal, no cyanosis. Neurovascular intact. Full, normal range of motion. Neuro: Awake and alert, GCS 15, oriented to person, place, time, and situation. Cranial nerves II-XII grossly intact. Motor strength 5/5 in all extremities. Sensory grossly intact. Cerebellar exam normal. Normal gait. Psych: Awake, alert, with orientation to person, place and time. Behavior, mood, and affect are within normal limits. 02:18 Respiratory: the patient does not display signs of respiratory distress, Respirations: prolonged exhalation, that is moderate, Breath sounds: wheezing: expiratory that is moderate, is heard diffusely, Respiratory rate: 22 Vital Signs: 01:33 BP 137 / 90; Pulse 76; Resp 22 S; Temp 97.0(TE); Pulse Ox 98% on R/A; Weight 88.45 kg as6 (R); Height 5 ft. 9 in. (175.26 cm) (R); Pain 0/10; 04:17 BP 139 / 86; Pulse 80; Resp 18; Pulse Ox 98% on R/A; as6 01:33 Body Mass Index 28.80 (88.45 kg, 175.26 cm) as6 MDM: 04:15 Differential diagnosis: acute asthma, exercise-induced asthma, reactive airway, URI. [facility] Data reviewed: vital signs, nurses notes, old medical records, lab test result(s), Flu: negative COVID-negative. Data interpreted: Pulse oximetry: on room air is 100 %. Interpretation: normal. Counseling: I had a detailed discussion with the patient and/or guardian regarding: the historical points, exam findings, and any diagnostic results supporting the discharge/admit diagnosis, the presence of at least one elevated blood pressure reading (>120/80) during this emergency department visit, lab results, the need for outpatient follow up, to return to the emergency department if symptoms worsen or persist or if there are any questions or concerns that arise at home. Response to treatment: the patient's symptoms have resolved after treatment, the patient's blood pressure is in an acceptable range, mental status has returned to baseline, the patient no longer shows bradycardia, the patient is not short of breath, the patient is not tachycardic, the patient's pain is gone, the patient's temperature has normalized. 04:16 Patient medically screened. [facility] 03/13 02:18 Order name: COVID-19/FLU A+B (Document "Date of Onset" if Symptomatic) [facility] 03/13 02:18 Order name: COVID-19/FLU A+B; Complete Time: 03:28 EDMS Administered Medications: 02:40 Drug: Albuterol - atroVENT (ipratropium) (3:1) (2.5 mg - 0.5 mg) 3 ml Route: Nebulizer; as6 04:17 Follow up: Response: No adverse reaction; Wheezing diminished as6 02:40 Drug: predniSONE 60 mg Route: PO; as6 04:17 Follow up: Response: No adverse reaction as6 Disposition Summary: 03/13/21 04:16 Discharge Ordered Location: Home [facility] Problem: an acute exacerbation [facility] Symptoms: have improved [facility] Condition: Stable [facility] Diagnosis - Unspecified asthma with (acute) exacerbation [facility] Followup: [facility] - With: Private Physician - When: 1 - 2 days - Reason: Worsening of condition, Recheck today's complaints, Continuance of care, Re-evaluation by your physician Discharge Instructions: - Discharge Summary Sheet [facility] - Asthma, Adult [facility] Forms: - Medication Reconciliation Form [facility] - Thank You Letter [facility] - Antibiotic Education [facility] - Prescription Opioid Use [facility] Prescriptions: - Xopenex 0.63 mg/3 mL Inhalation Solution for Nebulization - inhale 1 unit by NEBULIZATION route every 8 hours As needed; 1 box; Refills: 0, [facility] Product Selection Permitted - Prednisone 20 mg Oral Tablet - take 2 tablets by ORAL route once daily for 5 days; 10 tablet; Refills: 0, [facility] Product Selection Permitted Signatures: Dispatcher [employer] Devyn Chawla MD MD [facility] Erasmo Jo RN RN as6
[2021-03-13 05:55] VITALS: TEMP 97; O2SAT 98
[2021-03-13 05:56] VITALS: BP 139/86
== END 2021-03-13 04:21 | disposition home or self-care (01) ==
LOC: ER 01:19
DX: J45.901 Unspecified asthma with (acute) exacerbation (principal); Z20.822 Contact with and (suspected) exposure to COVID-19; Z88.8 Allergy status to other drugs, medicaments and biological substances
CPT/HCPCS: 0240U; 94640; 99284; J7512

== ENCOUNTER 2021-06-07 02:29 | Emergency (ER) | payer OTHER ==
--- OUTSIDE RECORDS SUMMARY | 2021-06-07 02:35 | XMS REPORT | Continuity of Care Document ---
:1980 Author Organization [facility] t Address [address] [place] [address] Care Team Providers Name Role Phone Kaitlyn Primary Care Physician Shaun BEGUM Attending Clinician Unavailable Shy BOWIE S Attending Clinician KM Attending Clinician Unavailable Km ALLEN Attending Clinician Doctor Unassigned, Name Attending Clinician Unavailable Francisco Castle DO Attending Clinician Mehdi RN E Attending Clinician Sravan Attending Clinician Michael BOWIE Attending Clinician Krystle BOWIE Attending Clinician RADIOLOGY Attending Clinician Unavailable Austin BOWIE Attending Clinician KM Admitting Clinician Unavailable Krystle BOWIE Admitting Clinician Payers Payer Name Policy Type Policy Number Effective Date Expiration Date S jessica ARIASGENOR FROM [id number] [address] [facility] 00:00:00 Problems Condition Condition Condition Status Onset Resolution Last Treating Co mments Source Name Details Category Date Date Treatment Clinician Date Lower Lower Disease Active Univers respirator respirator 04-20 it y of y tract y tract 00:00: [place] infection infection 00 Medi jenna due to due to Branch COVID-19 COVID-19 virus virus Postsurgic Postsurgic Disease Active U gary al al 5-02 ity of hypothyroi hypothyroi 00:00: Brandon mcguire dism dism 00 Medical Branch S/P S/P Disease Active Univers thyroidect thyroidect 4-21 it y of cintia cintia 00:00: [place] Medical Branch Hyperthyro Hyperthyro Disease Active 2015-02 U maydaers idism idism 1-29 ity of 00:00: [place] 00 Medical Branch Allergies, Adverse Reactions, Alerts Allergy Allergy Status Severity Reaction(s) Onset Inactive Treating Comm ents Source Name Type Date Date Clinician PHENYTOI DRUG Active Hives Univers N SODIUM INGREDI 7-12 ity of EXTENDED 00:00: [place] [facility] Phenytoi Propensi Active Hives Univer s n Sodium ty to 7-12 ity of Extended adverse 00:00: [place] reaction 00 Medical s Branch Social History Social Habit Start Date Stop Date Quantity Comments Source Exposure to Not sure [facility] SARS-CoV-2 (event) Medica l Branch Alcohol intake 2021-04-11 2021-04-11 0 /d [facility] 00:00:00 00:00:00 [facility] Tobacco use and 2015-10-28 2015-10-28 Never used [facility] exposure 00:00:00 00:00:00 [facility] Sex Assigned At [birth year] [facility] 00:00:00 00:00:00 [facility] Smoking Status Start Date Stop Date Source Never smoker [facility] Medications Ordered Filled Start Stop Current Ordering Indication Dosage Frequency Signature Comments Components Source Medication Medication Date Date Medication? Clinician (SIG) Name Name ipratropium Yes 3mL 3 mL, Unive rs -albuteroL 2-20 Inhalation ity of (DUONEB) 14:00: , QID, [place] 0.5 mg-3 00 First dose Medic al mg(2.5 mg on Medanales Branch base)/3 mL 04/11/21 at nebulizer 0800, solution 3 Until mL Discontinu ed, Routine ipratropium 2021- No 3mL 3 mL, Univ ers -albuteroL 2-20 -20 Inhalation it y of (DUONEB) 14:00: 11:06 , QID, [place] 0.5 mg-3 00 :35 First dose Medic al mg(2.5 mg on Sun Branch base)/3 mL 04/11/21 at nebulizer 0800, solution 3 Until mL Discontinu ed, Routine methylPREDN 2021- No 40mg 40 mg, Uni vers ISolone sod 04-11 Intravenou i ty of succ 10:45: 09:46 s, ONCE, 1 [place] (SOLU-MEDRO 00 :00 dose, On Medi jenna L (PF)) Sun Branch injection 04/11/21 at 40 mg 0445, STAT predniSONE 0 Yes [id number] Take one Univers 20 mg 2-20 tablet by ity of tablet 00:00: mouth [place] 00 daily Medical Branch dexamethaso 2020-02- No [id number] 10mg 10 mg, Univers ne -07 02-19 Intramuscu ity of (DECADRON 01:30: 01:30 lar, ONCE, [place] PHOSPHATE) 00 :00 1 dose, On Med ical injection Sat Branch 10 mg 02/06/21 at 1930, STAT predniSONE 2020-02- No [id number] 40mg Take 2 Univers 20 mg 2-18 12-24 tablets by ity of tablet 00:00: 05:59 mouth [place] 00 :00 daily for Medical 5 days. Branch methylPREDN Yes [id number] Take by Univers ISolone 4 3-09 mouth ity of mg tablets 00:00: SEE-INSTRU [place] 00 CTIONS. Medical follow Branch package directions methylPREDN 2020-0 Yes [id number] Take by Univers ISolone 4 3-09 mouth ity of mg tablets 00:00: SEE-INSTRU [place] 00 CTIONS. Medical follow Branch package directions methylPREDN 2020-0 Yes [id number] Take by Univers ISolone 4 3-09 mouth ity of mg tablets 00:00: SEE-INSTRU [place] 00 CTIONS. Medical follow Branch package directions methylPREDN 2020- Yes [id number] Take by Univers ISolone 4 3-09 mouth ity of mg tablets 00:00: SEE-INSTRU [place] 00 CTIONS. Medical follow Branch package directions methylPREDN 2020-0 Yes [id number] Take by Univers ISolone 4 3-09 mouth ity of mg tablets 00:00: SEE-INSTRU [place] 00 CTIONS. Medical follow Branch package directions methylPREDN 2020-0 Yes [id number] Take by Univers ISolone 4 3-09 mouth ity of mg tablets 00:00: SEE-INSTRU [place] 00 CTIONS. Medical follow Branch package directions methylPREDN 2020-0 Yes [id number] Take by Univers ISolone 4 3-09 mouth [...] 3-06 Piggyback, ity of (DECADRON 15:00: DAILY, [place] PHOSPHATE) 00 First dose Med ical 6 mg in (after Branch NaCl 0.9% last (NS) 50 mL modificati piggyback on) on 04/25/20 at 0900, Until Discontinu ed, 50 mL sodium Yes 1{spray 1 [place], [facility] ers chloride 305 } Nasal, ity of (OCEAN MIST 17:30: PRN, [place] NASAL) 0.65 50 Starting Medi jenna % nasal Fri 04/24/20 Branch spray 1 at 1130, [place] Until Discontinu ed, Routine, Surgery/Pr ocedure, Fro [...] 17g 17 g, Unive rs e Glycol 3-03 Oral, BID, ity o f 3350 17:30: First dose [place] (MIRALAX) 00 on Mon Medical powder 17 g 04/22/20 at [facility] 1130, Until Discontinu ed, Routine bisacodyL 0 Yes 10mg 10 mg, Univer s (DULCOLAX) 3 Rectal, ity of suppository 17:20: QDAILYPRN, [place] 10 mg 14 Starting Medical 04/22/20 Branch at 1120, Until Discontinu ed, Routine, Constipati on unresolved by oral medication s codeine-gua 0 Yes 10mL 10 mL, Univ ers ifenesin 04-22 Oral, ity of (ROBITUSSIN 14:50: Q4HPRN, Darius as AC) 10-100 40 Starting Medic al mg/5 mL Mon04/22/20 Branch solution 10 at 0850, mL Until Discontinu ed, Routine, Cough ergocalcife Yes [id number] 50,000 Un gareth rol 04-21 Units, ity [...] 04/21/20 at 0600, Until Discontinu ed ascorbic 0 Yes 500mg 500 mg, Unive rs acid 3 Oral, BID, ity of (vitamin C) 02:00: First dose [place] (VITAMIN C) 00 on Mon Medica l tablet 500 04/20/20 at Bran ch mg 1999, Until Discontinu ed, Routine budesonide- 2020-0 Yes 2{puff} 2 Puff, Univers formoteroL 04-21 Inhalation ity of (SYMBICORT) 02:00: , BID, [place] 160-4.5 00 First dose Medica l mcg/actuati on Mon on inhaler 04/20/20 at 2 Puff 1999, Until Discontinu ed, Routine enoxaparin 0 Yes 40mg 40 mg, Unive rs (LOVENOX) 3 Subcutaneo ity of injection 23:00: [place]ILY[place] 40 mg 00 First dose Medical on [facility] Branch 04/20/20 at 1700, Until Discontinu ed, Routine ondansetron Yes 4mg 4 mg, Slow Univers (ZOFRAN 04-20 IV Push, ity of (PF)) 19:01: Q6HPRN, [place] injection 4 50 Starting Medi jenna mg [facility] 04/20/20 Branch at 1301, Until Discontinu ed, Routine, Nausea and Vomiting (N/V) cefTRIAXone Yes 1000mg 1,000 mg, Univers (ROCEPHIN) 04-20 IV ity of 1,000 mg in 18:45: Piggyback, [place] NaCl 0.9% 00 Q24H ABX, Medic al (NS) 50 mL First dose [facility] MINI-BAG on Mon04/20/20 at 1245, Until Discontinu ed, 50 mL
R radha for Anti-Infec tive: Empiric Therapy for Suspected Infection< br>Empiric Therapy Site: Respirator y
Durat ion of therapy: 72 hours iohexol 2020- No 100mL 100 mL, Unive rs (OMNIPAQUE 04-20 Intravenou it y of 350 18:05: 18:05 s, ONCE, 1 [place] BULK-100 00 :00 dose, [facility] Medica l mL) 04/20/20 at Branch injection 1230, 100 mL Routine zinc Yes 220mg 220 mg, Univers sulfate 04-20 Oral, ity of (ORAZINC) 18:00: DAILY, [place] capsule 220 00 First dose Me dical mg on Mon Branch 04/20/20 at 1200, Until Discontinu ed, Routine thiamine Yes 100mg 100 mg, Unive rs (VITAMIN 3 Oral, ity of B1) tablet 18:00: DAILY, [place] 100 mg 00 First dose Medical on Mon Branch 04/20/20 at 1200, Until Discontinu ed, Routine azithromyci 2020- No 500mg 500 mg, U nivers n 04-20 03-03 Oral, ity of (ZITHROMAX) 17:45: 14:52 [...] 1 Darius as mg 00 :00 dose, [facility] Medical 04/20/20 at Branch 1100, GRAYSON budesonide- 2018-02 Yes 2{puff} Inhale 2 Univers formoterol 1-25 Puffs 2 ity of (SYMBICORT) 22:32: (two) [place] 160-4.5 24 times Medical mcg/actuati daily. Branch on inhaler predniSONE 2018-02 Yes [id number] 40mg Take 2 U nivers 20 mg 1-25 tablets by ity of tablet 00:00: mouth [place] 00 daily. Medical Branch albuterol 2018-02 Yes [id number] 2{puff} Inhale 2 Univers 90 1-25 Puffs ity of mcg/actuati 00:00: every 4 Darius as on inhaler 00 (four) Medical hours as Branch needed for Wheezing or Shortness of Breath. azithromyci 2018-02 Yes [id number] 250mg Take 1 Univers n 1-25 tablet by ity of (ZITHROMAX 00:00: mouth [place] Z-GREG) 250 00 SEE-INSTRU Med ical mg tablet CTIONS. Branch Take 500 mg day 1, then 250 mg days 2 to 5. benzonatate 2018-02 Yes [id number] 100mg Take 1 Univers 100 mg 1-25 capsule by ity of capsule 00:00: mouth 3 [place] 00 (three) Medical times Branch daily as needed for Cough. predniSONE 2018-02- No [id number] 40mg Take 2 Univers 20 mg 1-25 03-08 tablets by ity of tablet 00:00: 00:00 mouth [place] 00 :00 daily. Medical Branch albuterol 2018-02- No [id number] 2{puff} Inhale 2 Univers 90 03-16 03-08 Puffs ity of mcg/actuati 00:00: 00:00 every 4 [place] on inhaler 00 :00 (four) Medical hours as Branch needed for Wheezing or Shortness of Breath. azithromyci 2018-02- No [id number] 250mg Take 1 Univers n 03-1608 tablet by ity of (ZITHROMAX 00:00: 00:00 mouth [place] Z-GREG) 250 00 :00 SEE-INSTRU Med ical mg tablet CTIONS. Branch Take 500 mg day 1, then 250 mg days 2 to 5. benzonatate 2018-02- No [id number] 100mg Take 1 Univers 100 mg 03-1608 [...] nebulize one extra every 6 hours. ALBUTEROL 0 Yes 2{puff} Inhale 2 U nivers 90 [...] [place] ELLIPTA 10 Medical INHALE) Branch FLUTICASONE 0 Yes Inhale Univ ers /VILANTEROL 4-22 daily. [...] Time Observation Value Comments Source Systolic blood 2021-04-11 11:00:00 129 mm[Hg] Univer sity of pressure [facility] Diastolic blood 2021-04-11 11:00:00 85 mm[Hg] Unive rsity of pressure [place] [facility] Heart rate 2021-04-11 11:00:00 73 /min Universi ty of [place] [facility] Respiratory rate 2021-04-11 11:00:00 20 /min Univ ersity of [place] [facility] Oxygen saturation in 2021-04-11 11:00:00 94 /min University of Arterial blood by [place] [employer] jenna Pulse oximetry Branch Body temperature 2021-04-11 09:34:21 36.11 Cierra Univ ersity of [place] [facility] Body weight 2021-04-11 09:29:00 79 kg Universi ty of [place] [facility] BMI 2021-04-11 09:29:00 26.48 kg/m2 Universi ty of [place] [facility] Systolic blood 2021-02-06 22:35:00 134 mm[Hg] Univer sity of pressure [place] [facility] Diastolic blood 2021-02-06 22:35:00 88 mm[Hg] Unive rsity of pressure [place] [facility] Heart rate 2021-02-06 22:35:00 88 /min Universi ty of [place] [facility] Body temperature 2021-02-06 22:35:00 36.39 Cierra Univ ersity of [place] [facility] Respiratory rate 2021-02-06 22:35:00 18 /min Univ ersity of [place] [facility] Body weight 2021-02-06 22:35:00 79.379 kg Universi ty of [place] [facility] BMI 2021-02-06 22:35:00 26.61 kg/m2 Universi ty of [place] [facility] Oxygen saturation in 2021-02-06 22:35:00 97 /min University of Arterial blood by [place] [employer] jenna Pulse oximetry Branch Systolic blood 2020-04-27 21:00:00 107 mm[Hg] Univer sity of pressure [place] [facility] Diastolic blood 2020-04-27 21:00:00 66 mm[Hg] Unive rsity of pressure [place] [facility] Body temperature 2020-04-27 21:00:00 36.67 Cierra Univ ersity of [place] [facility] Heart rate 2020-04-27 10:01:00 64 /min Universi ty of [place] [facility] Respiratory rate 2020-04-27 10:01:00 18 /min Univ ersity of [place] [facility] Oxygen saturation in 2020-04-27 10:01:00 97 /min University of Arterial blood by [place] Medi jenna Pulse oximetry Branch Body height 2020-04-20 17:45:00 172.7 cm [facility] Body weight 2020-04-20 17:45:00 79.47 kg [facility] BMI 2020-04-20 17:45:00 26.64 kg/m2 [facility] Procedures Procedure Date / Time Performing Clinician Source Performed COMP. METABOLIC PANEL 2021-04-11 09:45:00 Poonam Begum [facility] ([id number]) Medical [place] CBC WITH DIFF 2021-04-11 09:45:00 Shy Sdaraceli [facility] COVID-19 (ID NOW RAPID 2021-04-11 09:45:00 [facility] TESTING) [facility] XR CHEST 2 VW 2021-02-06 23:43:46 Kylah Bryson [facility] CONSENT/REFUSAL FOR 2021-02-06 22:29:32 Doctor Unassigned, No Un [facility] DIAGNOSIS AND TREATMENT Name Medical [place] BASIC METABOLIC PANEL 2020-04-27 11:39:00 [facility] (NA, K, CL, CO2, [facility] Branch GLUCOSE, BUN, CREATININE, CA) CBC WITH DIFF 2020-04-27 11:39:00 [facility] BASIC METABOLIC PANEL 2020-04-26 10:47:00 [facility] (NA, K, CL, CO2, [facility] Branch GLUCOSE, BUN, CREATININE, CA) CBC WITH DIFF 2020-04-26 10:47:00 [facility] C-REACTIVE PROTEIN 2020-04-23 11:18:00 Abdoulaye Dalton [facility] COMP. METABOLIC PANEL 2020-04-23 11:18:00 Abdoulaye Dalton [facility] ([id number]) [facility] Branch CBC WITH DIFF 2020-04-23 11:18:00 Abdoulaye Dalton [facility] PROCALCITONIN 2020-04-23 11:18:00 Krystle Abdoulaye [facility] POCT GLUCOSE (AUTOMATED) 2020-04-22 17:38:00 Abdoulaye Dalton [facility] THYROID STIMULATING 2020-04-21 09:59:00 Abdoulaye Dalton [facility] HORMONE [facility] BASIC METABOLIC PANEL 2020-04-21 09:59:00 Abdoulaye Dalton [facility] (NA, K, CL, CO2, Medical Branch GLUCOSE, BUN, CREATININE, CA) CBC WITH DIFF 2020-04-21 09:59:00 Krystle [facility] URINALYSIS 2020-04-21 03:16:00 Michael [facility] PNEUMOCOCCAL ANTIGEN 2020-04-21 03:16:[address] [facility] LACTATE DEHYDROGENASE 2020-04-20 18:48:00 Krystle [facility] C-REACTIVE PROTEIN 2020-04-20 18:48:00 Krystle [facility] VITAMIN D, 25-OH 2020-04-20 18:48:00 Krystle [facility] PROCALCITONIN 2020-04-20 18:48:00 Krystle [facility] CT CHEST PULMONARY 2020-04-20 18:15:58 Krystle Abdoulaye [facility] ANGIOGRAM [facility] Branch HB ECG ROUTINE & RHYTHM 2020-04-20 16:14:47 Oscar Rodriguez [facility] STRIP [facility] Branch XR CHEST 1 VW 2020-04-20 16:14:07 Oscar Rodriguez [facility] BLOOD CULTURE SCREEN 2020-04-20 16:05:[address] [facility] COVID-19 (ID NOW RAPID 2020-04-20 16:05:00 Oscar Rodriguez [facility] TESTING) Medical Branch BLOOD CULTURE SCREEN 2020-04-20 16:04:[address] [facility] CREATINE KINASE 2020-04-20 16:04:00 Krystle [facility] FERRITIN SERUM 2020-04-20 16:04:00 Krystle [facility] TROPONIN I 2020-04-20 16:04:00 Oscar Rodriguez [facility] HEPATIC FUNCTION PANEL 2020-04-20 16:04:00 Oscar Rodriguez [facility] ([id number]) (ALB,T.PRO,BILI Medical Branch T,BU/BC,ALT,AST,ALK PHOS) BASIC METABOLIC PANEL 2020-04-20 16:04:00 Oscar Rodriguez [facility] (NA, K, CL, CO2, Medical Branch GLUCOSE, BUN, CREATININE, CA) CBC WITH DIFF 2020-04-20 16:04:00 Michael Oscar [facility] GLYCOSYLATED HEMOGLOBIN 2020-04-20 16:04:00 [facility] (A1C) [facility] PROTHROMBIN TIME / INR 2020-04-20 16:04:00 Michael Oscar [facility] D-DIMER 2020-04-20 16:04:00 [facility] ACTIVATED PARTIAL 2020-04-20 16:04:00 Michael [facility] THRMPLAS ROBERTO [facility] N-TERMINAL PRO-BNP 2020-04-20 16:04:00 [facility] OF [facility]IVACY 2020-04-20 15:19:40 Doctor Unassigned, No [facility] PRACTICES Name Medical Branch CONSENT/REFUSAL FOR 2020-04-20 15:19:24 Doctor Unassigned, No [facility] DIAGNOSIS AND TREATMENT Name Medical Branch CONSENT/REFUSAL FOR 2018-11-09 20:22:33 Doctor Unassigned, No [facility] DIAGNOSIS AND TREATMENT [facility] ASSIGNMENT OF BENEFITS 2018-11-09 20:22:19 Doctor Unassigned, No [facility] Encounters Start End Encounter Admission Attending Care Care Encounter Source Date/Time Date/Time Type Type Clinicians Facility Department ID 2020-12-20 Emergency [facility] [id number] Univers 02:01:55 [facility] 2021-04-11 2021-04-11 Emergency X SHY [facility] ERT [id number] Univers 03:24:00 05:45:00 [facility] 2021-04-11 2021-04-11 Emergency [facility] [id number] Univers 03:24:00 05:45:00 Poonam MOODY [id number] ity of [place] [id number] [facility] [id number] [facility] 084 Branch 2021-02-06 2021-02-06 Emergency X [facility] ERT [id number] Univers 16:37:00 18:38:00 KYLAH ity of [place] [facility] 2021-02-06 2021-02-06 Emergency [facility] [id number] Univers 16:37:00 18:38:00 Kylah MOODY [id number] i ty of [place] 4.2.7.2.686 [facility] [id number] [facility] 084 Branch 2021-02-06 2021-02-06 Orders Doctor [place] [id number] Univers 00:00:00 00:00:00 Only Unassigned, KENYATTA [id number] ity of [place] [facility] 4.2.7.2.686 Darius as [id number] [facility] 009 Branch 2020-05-07 2020-05-07 Patient Tin [facility] [id number] Univers 00:00:00 00:00:00 Outreach David PRIMARY [id number] i ty of [place] 4[place]2.7.2.686 [place] [facility] [id number] [place] dical 388 Branch 2020-04-29 2020-04-29 Patient MehdiKylie Justin [id number] Univers 00:00:00 00:00:00 Outreach E Sl[place] [id number] i ty of [place] 4.2.7.2.686 [place] [id number] [facility] 403 Branch 2020-04-28 2020-04-28 Transition Justin Hinson [id number] Univers 00:00:00 00:00:00 of Care Saida Grovery [id number] ity of [place] 4.2.7.2.686 [place] [id number] [facility] 403 Branch 2020-04-20 2020-04-27 Hospital Oscar Rodriguez [facility] [id number] Univers 09:36:00 16:20:00 Encounter Abdoulaye Dalton [id number] ity of [place] 4.2.7.2.686 [place] [id number] [facility] 080 Branch 2020-04-20 2020-04-20 Orders Doctor [place] [id number] Univers 00:00:00 00:00:00 Only Unassigned, KENYATTA [id number] ity of [place] [facility] 4.2.7.2.686 Darius as [id number] [address] 2019-08-20 2019-08-20 Outpatient [facility] [id number] Univers 13:30:00 13:30:00 [id number] ity [facility] 2019-08-20 2019-08-20 Outpatient R RADIOLOGY [facility] [id number] Univers 00:00:00 00:00:00 ity of [place] [facility] 2018-11-09 2018-11-09 Orders Doctor [place] [id number] 00:00:00 00:00:00 Only Unassigned, KENYATTA [id number] [place] [facility] 4.2.7.2.686 [id number] 009 2018-11-09 2018-11-09 Orders Doctor CONRAD [id number] Univers 00:00:00 00:00:00 Only Unassigned, KENYATTA [id number] ity of [place] [facility] 4.2.7.2.686 Darius as [id number] [address] 2018-11-08 2018-11-08 Telephone [place] [facility] [id number] 00:00:00 00:00:00 Marika Moody [id number] [place] 4.2.7.2.686 Professio [id number] [address] 2018-11-08 2018-11-08 [facility] [id number] Univers 00:00:00 00:00:00 Marika Moody [id number] i ty of [place] 4.2.7.2.686 Albertina krishnan liliaremedios [id number] [place] dical nal [address] Branch Building Results Test Description Test Time Test Comments Results Result Comments Source CBC WITH DIFF 2021-04-11 10:57:06 Test Item Value Reference Range Interpretation Comme nts WBC (test code = 6690-2) See_Comment H [A utomated message] The system which ge nerated this result transmit kendal reference range: 4.20 - 1 0.70 10*3/?L. The reference r michael was not used to interpr et this result as normal/abnor mal. RBC (test code = 789-8) See_Comment [Au tomated message] The system which ge nerated this result transmit kendal reference range: 4.26 - 5 .52 10*6/?L. The reference r michael was not used to interpr et this result as normal/abnor mal. HGB (test code = 718-7) 15.2 g/dL 12.2-16.4 HCT (test code = 4544-3) 45.0 % 38.4-49.3 MCV (test code = 787-2) 87.0 fL 81.7-95.6 MCH (test code = 785-6) 29.4 pg 26.1-32.7 MCHC (test code = 786-4) 33.8 g/dL 31.2-35.0 RDW-SD (test code = 91822-6) 42.8 fL 38.5-51.6 RDW-CV (test code = 788-0) 13.5 % 12.1-15.4 PLT (test code = 777-3) See_Comment [Au tomated message] The system which ge nerated this result transmit kendal reference range: 150 - 32 8 10*3/?L. The reference range was not used to interpret th is result as normal/abnormal . MPV (test code = 04964-7) 9.9 fL 9.8-13.0 NRBC/100 WBC (test code = See_Comment [ Automated message] The [id number]) system which ge nerated this result transmit kendal reference range: 0.0 - 10 .0 /100 WBCs. The reference r michael was not used to interpr et this result as normal/abnor mal. NRBC x10^3 (test code = <0.01 See_Comment [Au tomated message] The [id number]) system which Tuebora nerated this result transmit kendal reference range: 10*3/?L. The reference range was not u sed to interpret this result as normal/abnormal . GRAN MAT (NEUT) % (test code 46.9 % = 770-8) IMM GRAN % (test code = 0.40 % 5302510470) LYMPH % (test code = 736-9) 19.3 % MONO % (test code = 5905-5) 8.4 % EOS % (test code = 713-8) 23.2 % BASO % (test code = 706-2) 1.8 % GRAN MAT x10^3(ANC) (test 5.17 10*3/uL 1.99-6.95 code = 6061697881) IMM GRAN x10^3 (test code = 0.04 10*3/uL 0.00-0.06 8791831437) LYMPH x10^3 (test code = 2.12 10*3/uL 1.09-3.23 731-0) MONO x10^3 (test code = 0.93 10*3/uL 0.36-1.02 742-7) EOS x10^3 (test code = 2.55 10*3/uL 0.06-0.53 H 711-2) BASO x10^3 (test code = 0.20 10*3/uL 0.01-0.09 H 704-7) Lab Interpretation (test Abnormal code = 76896-6) [facility][id number][facility]2021-04-11 10:24:40 Test Item Value Reference Range Interpretation Comments NA (test code = 138 mmol/L 135-145 1206977275) K (test code = 4.1 mmol/L 3.5-5.0 9848439590) CL (test code = 108 mmol/L 98-108 9861938721) CO2 TOTAL (test code = 23 mmol/L 23-31 7998656181) AGAP (test code = 2-16 6409177946) BUN (test code = 22 mg/dL 7-23 6088830748) GLUCOSE (test code = 117 mg/dL 70-110 H 3615055551) CREATININE (test code = 1.20 mg/dL 0.60-1.25 0668575815) TOTAL BILI (test code = 0.5 mg/dL 0.1-1.0 1434505009) CALCIUM (test code = 8.8 mg/dL 8.6-10.6 8239315626) T PROTEIN (test code = 7.0 g/dL 6.3-8.2 1141474937) ALBUMIN (test code = 4.6 g/dL 3.5-5.0 6494498120) ALK PHOS (test code = 73 U/L 34-122 8427207489) ALTv (test code = 31 U/L 5-50 1742-6) AST(SGOT) (test code = 38 U/L 13-40 6778387010) eGFR (test code = mL/min/1.73m2 3960706786) RUDI (test code = RUDI) Association of [...] tests). Lab Interpretation Abnormal (test code = 64898-1) [facility] METABOLIC PANEL (NA, K, CL, CO2, GLUCOSE, BUN, CREATININE, CA)2020-04-27 12:18:34 Test Item Value Reference Range Interpretation Comments NA (test code = 137 mmol/L 135-145 5119416802) K (test code = 4.0 mmol/L 3.5-5.0 6039619402) CL (test code = 102 mmol/L 98-108 3298858823) CO2 TOTAL (test code = 30 mmol/L 23-31 1964266162) AGAP (test code = 2-16 8426982558) BUN (test code = 22 mg/dL 7-23 0607520937) GLUCOSE (test code = 102 mg/dL 70-110 2992955409) CREATININE (test code = 0.69 mg/dL 0.60-1.25 6601895033) CALCIUM (test code = 8.5 mg/dL 8.6-10.6 L 2090342187) eGFR Calculation mL/min/1.73m2 (Non-) (test code = 2029650216) eGFR Calculation mL/min/1.73m2 () (test code = 0487349832) RUDI (test code = RUDI) Association of [...] tests). Lab Interpretation Abnormal (test code = 42421-6) [facility] WITH [id number] 12:08:31 Test Item Value Reference Range Interpretation Comments WBC (test code = See_Comment H [Automated 7279-2) message] The system which generated this result transmit kendal reference range : 4.20 - 10.70 10*3/?L. The reference range was not used to interpret this result as normal/abnormal . RBC (test code = See_Comment [Automated 669-8) message] The system which generated this result [...] RDW-SD (test code = 39.8 fL 38.5-51.6 84804-6) RDW-CV (test code = 13.2 % 12.1-15.4 788-0) PLT (test code = See_Comment H [Automated 777-3) message] The system which generated this result transmit kendal reference range : 150 - 328 10*3/ ?L. The reference range was not u sed to interpret th is result as normal/abnormal . MPV (test code = 9.9 fL 9.8-13.0 16963-6) NRBC/100 WBC (test See_Comment [Automat ed code = 7019851651) message] The system which generated this result transmit kendal reference range : 0.0 - 10.0 /100 WBCs. The reference range was not used to interpret this result as normal/abnormal . NRBC x10^3 (test code <0.01 See_Comment [Auto mated = 7258870060) message] The system which generated this result transmit kendal reference range : 10*3/?L. The reference range was not used to interpret this result as normal/abnormal . GRAN MAT (NEUT) % 82.9 % (test code = 770-8) IMM GRAN % (test code 3.60 % = 4165438104) LYMPH % (test code = 8.3 % 736-9) MONO % (test code = 4.4 % 5905-5) EOS % (test code = 0.5 % 713-8) BASO % (test code = 0.3 % 706-2) GRAN MAT x10^3(ANC) 21.94 10*3/uL 1.99-6.95 H (test code = 9221406807) IMM GRAN x10^3 (test 0.95 10*3/uL 0.00-0.06 H code = 0589520605) LYMPH x10^3 (test code 2.21 10*3/uL 1.09-3.23 = 731-0) MONO x10^3 (test code 1.16 10*3/uL 0.36-1.02 H = 742-7) EOS x10^3 (test code = 0.13 10*3/uL 0.06-0.53 711-2) BASO x10^3 (test code 0.09 10*3/uL 0.01-0.09 = 704-7) Lab Interpretation Abnormal (test code = 63009-6) [facility] WITH [id number] 12:11:01 Test Item Value Reference Range Interpretation [...] RDW-SD (test code = 40.9 fL 38.5-51.6 00399-1) RDW-CV (test code = 13.2 % 12.1-15.4 788-0) PLT (test code = See_Comment [Automated 777-3) message] The system which generated this result transmit kendal reference range : 150 - 328 10*3/ ?L. The reference range was not u sed to interpret th is result as normal/abnormal . MPV (test code = 10.9 fL 9.8-13.0 88578-5) NRBC/100 WBC (test See_Comment [Automat ed code = 4027778896) message] The system which generated this result transmit kendal reference range : 0.0 - 10.0 /100 WBCs. The reference range was not used to interpret this result as normal/abnormal . NRBC x10^3 (test code <0.01 See_Comment [Auto mated = 1047072531) message] The system which generated this result transmit kendal reference range : 10*3/?L. The reference range was not used to interpret this result as normal/abnormal . GRAN MAT (NEUT) % 80.8 % (test code = 770-8) IMM GRAN % (test code 5.80 % = 1218452296) LYMPH % (test code = 7.4 % 736-9) MONO % (test code = 4.9 % 5905-5) EOS % (test code = 0.6 % 713-8) BASO % (test code = 0.5 % 706-2) GRAN MAT x10^3(ANC) 17.18 10*3/uL 1.99-6.95 H (test code = 0119824251) IMM GRAN x10^3 (test 1.23 10*3/uL 0.00-0.06 H code = 3798250493) LYMPH x10^3 (test code 1.57 10*3/uL 1.09-3.23 = 731-0) MONO x10^3 (test code 1.04 10*3/uL 0.36-1.02 H = 742-7) EOS x10^3 (test code = 0.13 10*3/uL 0.06-0.53 711-2) BASO x10^3 (test code 0.10 10*3/uL 0.01-0.09 H = 704-7) Lab Interpretation Abnormal (test code = 96762-3) [facility] METABOLIC PANEL (NA, K, CL, CO2, GLUCOSE, BUN, CREATININE, CA)2020-04-26 12:01:30 Test Item Value Reference Range Interpretation Comments NA (test code = 135 mmol/L 135-145 4283232426) K (test code = 4.3 mmol/L 3.5-5.0 8316577838) CL (test code = 102 mmol/L 98-108 6793581100) CO2 TOTAL (test code = 27 mmol/L 23-31 6622824661) AGAP (test code = 2-16 4271723831) BUN (test code = 21 mg/dL 7-23 7764103795) GLUCOSE (test code = 99 mg/dL 70-110 6078610190) CREATININE (test code = 0.57 mg/dL 0.60-1.25 L 4975394310) CALCIUM (test code = 8.3 mg/dL 8.6-10.6 L 3105390987) eGFR Calculation mL/min/1.73m2 (Non-) (test code = 8223265749) eGFR Calculation mL/min/1.73m2 () (test code = 6780131412) RUDI (test code = RUDI) Association of [...] tests). Lab Interpretation Abnormal (test code = 45104-2) [facility] [id number] 17:01:00 Test Item Value Reference Range Interpretation Comments Blood Culture-Aerobic No organisms No growth Previo us (test code = 13198-7) isolated prelim inary verified result was Culture In Progress on 04/20/2020 at 140 2 CSTPrevious preliminary verified result was No growth a t 24 hours on 04/21/2020 at 110 1 CSTPrevious preliminary verified result was No growth a t 48 hours on 04/22/2020 at 110 1 CSTPrevious preliminary verified result was No growth a t 72 hours on 04/23/2020 at 110 1 [employer] Blood No organisms No growth Previous Culture-Anaerobic isolated preliminar y (test code = 83981-8) verifi ed result was Culture In Progress on 04/20/2020 at 140 2 CSTPrevious preliminary verified result was No growth a t 24 hours on 04/21/2020 at 110 1 CSTPrevious preliminary verified result was No growth a t 48 hours on 04/22/2020 at 110 1 CSTPrevious preliminary verified result was No growth a t 72 hours on 04/23/2020 at 110 1 [employer] Lab Interpretation Normal (test code = 94174-9) [facility] [id number] 17:01:00 Test Item Value Reference Range Interpretation Comments Blood Culture-Aerobic No organisms No growth Previo us (test code = 99367-7) isolated prelim inary verified result was Culture In Progress on 04/20/2020 at 140 2 CSTPrevious preliminary verified result was No growth a t 24 hours on 04/21/2020 at 110 1 CSTPrevious preliminary verified result was No growth a t 48 hours on 04/22/2020 at 110 1 CSTPrevious preliminary verified result was No growth a t 72 hours on 04/23/2020 at 110 1 [employer] Blood No organisms No growth Previous Culture-Anaerobic isolated preliminar y (test code = 61908-1) verifi ed result was Culture In Progress on 04/20/2020 at 140 2 CSTPrevious preliminary verified result was No growth a t 24 hours on 04/21/2020 at 110 1 CSTPrevious preliminary verified result was No growth a t 48 hours on 04/22/2020 at 110 1 CSTPrevious preliminary verified result was No growth a t 72 hours on 04/23/2020 at 110 1 [employer] Lab Interpretation Normal (test code = 94639-7) [facility] CenterC-REACTIVE [id number] 12:58:00 Test Item Value Reference Range Interpretation Comments CRP (test code = 9834213530) 18.1 mg/dL <0.8 H Lab Interpretation (test code = Abnormal 32236-3) [facility] CenterPROCALCITONIN2021-03-04 17:45:00 Test Item Value Reference Range Interpretation Comments Procalcitonin (test 0.41 ng/mL <0.07 H code = 3513441419) RUDI (test code = RUDI) INTERPRETATION OF [...] lung abscess/empyema. For further information please refer to:[email or web address] Lab Interpretation Abnormal (test code = 08035-4) [facility] WITH [id number] 14:42:00 Test Item Value Reference Range Interpretation Comments WBC (test code = See_Comment H [Automated 4816-2) message] The system which generated this result [...] RDW-SD (test code = 41.8 fL 38.5-51.6 94313-5) RDW-CV (test code = 13.8 % 12.1-15.4 788-0) PLT (test code = See_Comment [Automated 777-3) message] The system which generated this result transmit kendal reference range : 150 - 328 10*3/ ?L. The reference range was not u sed to interpret th is result as normal/abnormal . MPV (test code = 9.8 fL 9.8-13.0 23410-4) NRBC/100 WBC (test See_Comment [Automat ed code = 6830374362) message] The system which generated this result transmit kendal reference range : 0.0 - 10.0 /100 WBCs. The reference range was not used to interpret this result as normal/abnormal . NRBC x10^3 (test code <0.01 See_Comment [Auto mated = 4348733252) message] The system which generated this result transmit kendal reference range : 10*3/?L. The reference range was not used to interpret this result as normal/abnormal . GRAN MAT (NEUT) % 68.9 % (test code = 770-8) IMM GRAN % (test code 2.40 % = 7413065168) LYMPH % (test code = 8.1 % 736-9) MONO % (test code = 11.7 % 5905-5) EOS % (test code = 8.3 % 713-8) BASO % (test code = 0.6 % 706-2) GRAN MAT x10^3(ANC) 10.53 10*3/uL 1.99-6.95 H (test code = 1963453752) IMM GRAN x10^3 (test 0.36 10*3/uL 0.00-0.06 H code = 9660881098) LYMPH x10^3 (test code 1.23 10*3/uL 1.09-3.23 = 731-0) MONO x10^3 (test code 1.79 10*3/uL 0.36-1.02 H = 742-7) EOS x10^3 (test code = 1.26 10*3/uL 0.06-0.53 H 711-2) BASO x10^3 (test code 0.09 10*3/uL 0.01-0.09 = 704-7) BANDS (test code = Increased A 1098434893) Lab Interpretation Abnormal (test code = 88813-9) [facility] CenterCOMP. METABOLIC PANEL (29401)2020-04-23 13:01:00 Test Item Value Reference Range Interpretation Comments NA (test code = 134 mmol/L 135-145 L 7408760829) K (test code = 4.2 mmol/L 3.5-5.0 6595773809) CL (test code = 100 mmol/L 98-108 8784605891) CO2 TOTAL (test code = 28 mmol/L 23-31 6234406412) AGAP (test code = 2-16 9386528023) BUN (test code = 22 mg/dL 7-23 5139432054) GLUCOSE (test code = 100 mg/dL 70-110 6552758061) CREATININE (test code = 0.61 mg/dL 0.60-1.25 0839058679) TOTAL BILI (test code = 0.7 mg/dL 0.1-1.1 3022099457) CALCIUM (test code = 8.4 mg/dL 8.6-10.6 L 3827212042) T PROTEIN (test code = 5.6 g/dL 6.3-8.2 L 1644459369) ALBUMIN (test code = 3.0 g/dL 3.5-5.0 L 6274044353) ALK PHOS (test code = 87 U/L 34-122 5413087197) ALTv (test code = 60 U/L 5-50 H 2-6) AST(SGOT) (test code = 38 U/L 13-40 5496734874) eGFR Calculation mL/min/1.73m2 (Non-) (test code = 8277501238) eGFR Calculation mL/min/1.73m2 () (test code = 0472293832) RUDI (test code = RUDI) Association of [...] tests). Lab Interpretation Abnormal (test code = 97419-3) [facility] CenterPO[facility]SE (AUTOMATED)2020-04-22 18:15:00 Test Item Value Reference Range Interpretation Comments POCT GLU (test code = 9840290791) 98 mg/dL 70-110 Lab Interpretation (test code = Normal 34819-9) [facility] CenterTHYROID STIMULATING [id number] 23:03:00 Test Item Value Reference Range Interpretation Comments TSH (test code = See_Comment Biotin has been 7811299118) reported to cau se a negative bias, interpret resul ts relative to pat mindy's use of biotin. [Automated mess age] The system whic h generated this result transmitted ref erence range: 0.45 - 4 .70 mIU/L. The refe rence range was not u sed to interpret this result as normal/abnor mal. Lab Interpretation (test Normal code = 92313-0) [facility]-REACTIVE [id number] 19:44:00 Test Item Value Reference Range Interpretation Comments CRP (test code = 3579890280) 35.9 mg/dL <0.8 H Lab Interpretation (test code = Abnormal 51924-8) [facility] CenterCB with [id number] 13:01:00 Test Item Value Reference Range Interpretation Comments WBC (test code = See_Comment H [Automated 5590-2) message] The system which generated this result transmit kendal reference range : 4.20 - 10.70 10*3/?L. The reference range was not used to interpret this result as normal/abnormal . RBC (test code = See_Comment [Automated 479-8) message] The system which generated this result [...] RDW-SD (test code = 42.5 fL 38.5-51.6 19368-0) RDW-CV (test code = 13.7 % 12.1-15.4 788-0) PLT (test code = See_Comment [Automated 777-3) message] The system which generated this result transmit kendal reference range : 150 - 328 10*3/ ?L. The reference range was not u sed to interpret th is result as normal/abnormal . MPV (test code = 10.4 fL 9.8-13.0 97125-7) NRBC/100 WBC (test See_Comment [Automat ed code = 9110208702) message] The system which generated this result transmit kendal reference range : 0.0 - 10.0 /100 WBCs. The reference range was not used to interpret this result as normal/abnormal . NRBC x10^3 (test code <0.01 See_Comment [Auto mated = 8910051098) message] The system which generated this result transmit kendal reference range : 10*3/?L. The reference range was not used to interpret this result as normal/abnormal . GRAN MAT (NEUT) % 85.9 % (test code = 770-8) IMM GRAN % (test code 1.20 % = 5523357138) LYMPH % (test code = 4.4 % 736-9) MONO % (test code = 7.9 % 5905-5) EOS % (test code = 0.3 % 713-8) BASO % (test code = 0.3 % 706-2) GRAN MAT x10^3(ANC) 15.92 10*3/uL 1.99-6.95 H (test code = 0595782178) IMM GRAN x10^3 (test 0.23 10*3/uL 0.00-0.06 H code = 2195812575) LYMPH x10^3 (test code 0.81 10*3/uL 1.09-3.23 L = 731-0) MONO x10^3 (test code 1.46 10*3/uL 0.36-1.02 H = 742-7) EOS x10^3 (test code = 0.05 10*3/uL 0.06-0.53 L 711-2) BASO x10^3 (test code 0.05 10*3/uL 0.01-0.09 = 704-7) Lab Interpretation Abnormal (test code = 08193-5) [facility] Metabolic Panel (NA, K, CL, CO2, GLUCOSE, BUN, CREATININE, CA)2020-04-21 11:24:00 Test Item Value Reference Range Interpretation Comments NA (test code = 133 mmol/L 135-145 L 6856321429) K (test code = 4.2 mmol/L 3.5-5.0 4469631219) CL (test code = 99 mmol/L 98-108 3804195529) CO2 TOTAL (test code = 26 mmol/L 23-31 3562577296) AGAP (test code = 2-16 5828310932) BUN (test code = 22 mg/dL 7-23 0399743579) GLUCOSE (test code = 92 mg/dL 70-110 9139356339) CREATININE (test code = 1.04 mg/dL 0.60-1.25 2748836315) CALCIUM (test code = 8.4 mg/dL 8.6-10.6 L 0397411633) eGFR Calculation mL/min/1.73m2 (Non-) (test code = 9756324738) eGFR Calculation mL/min/1.73m2 () (test code = 0866078800) RUDI (test code = RUDI) Association of [...] tests). Lab Interpretation Abnormal (test code = 40517-3) [facility] CenterLEGIONELLA URINARY ANTIGEN [id number] 08:59:00 Test Item Value Reference Range Interpretation Comments Legionella Urinary Negative Negative Antigen (test code = 3250974460) RUDI (test code = RUDI) Negative for [...] test. Lab Interpretation (test Normal code = 40503-8) [facility] CenterPNEUMOCOCCAL [id number] 08:56:00 Test Item Value Reference Range Interpretation Comments S. pneumoniae antigen (test code = Negative Negative 3291532182) Lab Interpretation (test code = Normal 02865-5) [facility] CenterURINALYSIS2021-03-02 04:35:00 Test Item Value Reference Range Interpretation Comments APPEARANCE (test code Slightly Cloudy Clear A = 8723779018) COLOR (test code = Yellow Yellow 6663435477) PH (test code = 4.8-8.0 8577200814) SP GRAVITY (test code 1.003-1.030 = 5277978273) GLU U QUAL (test code 100 mg/dL Negative A = 6015824614) BLOOD (test code = Small Negative A 8560693907) KETONES (test code = Negative Negative 9249111797) PROTEIN (test code = 100 mg/dL Negative A 2887-8) UROBILIN (test code = 1.0 mg/dL See_Comment [Auto mated 2579586363) message] The system which generated this result transmit kendal reference range : 0-1.0 mg/dL. Th e reference range was not used to interpret this result as normal/abnormal . BILIRUBIN (test code Negative Negative = 3591818310) NITRITE (test code = Negative Negative 4284963958) LEUK DE (test code Negative Negative = 1701213571) RBC/HPF (test code = See_Comment H [Autom ated 6852640264) message] The system which generated this result transmit kendal reference range : 0 - 3 HPF. The reference range was not used to interpret this result as normal/abnormal . WBC/HPF (test code = See_Comment [Autom ated 9401091906) message] The system which generated this result transmit kendal reference range : 0 - 5 HPF. The reference range was not used to interpret this result as normal/abnormal . BACTERIA (test code = Few Negative A 2280299345) MUCOUS (test code = Marked Negative LPF A 1124595645) SQ EPITH (test code = HPF 6295749192) GRAN CASTS (test code See_Comment H [Auto mated = 4953349622) message] The system which generated this result transmit kendal reference range : <=1 LPF. The reference range was not used to interpret this result as normal/abnormal . Lab Interpretation Abnormal (test code = 81445-4) [facility] CenterPROCALCITONIN2021-03-02 00:21:00 Test Item Value Reference Range Interpretation Comments Procalcitonin (test 1.37 ng/mL <0.07 H code = 9800772805) RUDI (test code = RUDI) INTERPRETATION OF [...] lung abscess/empyema. For further information please refer to:[email or web address] Lab Interpretation Abnormal (test code = 47498-7) [facility] CenterVITAMIN D, [id number] 23:26:00 Test Item Value Reference Range Interpretation Comments VIT D 25OH (test code = 33 ng/mL 25-80 17443-7) RUDI (test code = RUDI) Deficiency: <20 ng/mLInsufficiency : 20-24 ng/mLOptimal: 25-80 ng/mL Lab Interpretation (test Normal code = 17855-8) [facility] CenterGLYCOSYLATED HEMOGLOBIN (A1C)2020-04-20 21:23:00 Test Item Value Reference Range Interpretation Comments HGB A1C (test code = 5.9 % 4.0-6.0 4548-4) RUDI (test code = RUDI) %A1C (NGSP) Interpretation (ADA)4.8-5.6 ? ? Normal or (Non-Diabetic Range)5.7-6.4 ? ? Increased Risk (Pre-Diabetic)>6.5 ?Diabetes Indicated Lab Interpretation Normal (test code = 64812-3) [facility] CenterCT CHEST PULMONARY [id number] 20:27:24 No acute pulmonary embolus. Diffuse groundglass/nodular [...] reviewed this study and agree with the abovereport.[facility] LACTATE [id number] 19:40:00 Test Item Value Reference Range Interpretation Comments LDH (test code = 9310687152) 706 U/L 300-600 H Lab Interpretation (test code = Abnormal 58460-1) [facility] CenterFERRITIN [id number] 18:54:00 Test Item Value Reference Range Interpretation Comments FERRITIN (test code = 428.0 ng/mL 18.0-464.0 5902340627) RUDI (test code = RUDI) Biotin has been reported to cause a negative bias, interpret results relative to patient's use of biotin. Lab Interpretation (test Normal code = 54653-2) [facility] CenterD-[id number] 18:31:00 Test Item Value Reference Interpretation Comments Range D-DIMER (test code = <0.27 See_Comment [Autom ated 1834375235) message] The system which generated this result [...] diagnosis. Lab Interpretation Normal (test code = 06485-2) [facility] CenterCREATINE [id number] 18:18:00 Test Item Value Reference Range Interpretation Comments CK (test code = 7053211066) 61 U/L 33-194 Lab Interpretation (test code = Normal 51244-1) [facility] CenterCBC with [id number] 17:21:00 Test Item Value Reference Range Interpretation Comments WBC (test code = See_Comment H [Automated 6690-2) message] The system which generated this result transmit kendal reference range : 4.20 - 10.70 10*3/?L. The reference range was not used to interpret this result as normal/abnormal . RBC (test code = See_Comment H [Automated 789-8) message] The system which generated [...] RDW-SD (test code = 43.2 fL 38.5-51.6 28278-8) RDW-CV (test code = 13.7 % 12.1-15.4 788-0) PLT (test code = See_Comment [Automated 777-3) message] The system which generated this result transmit kendal reference range : 150 - 328 10*3/ ?L. The reference range was not u sed to interpret th is result as normal/abnormal . MPV (test code = 9.9 fL 9.8-13.0 13637-6) NRBC/100 WBC (test See_Comment [Automat ed code = 5154421504) message] The system which generated this result transmit kendal reference range : 0.0 - 10.0 /100 WBCs. The reference range was not used to interpret this result as normal/abnormal . NRBC x10^3 (test code <0.01 See_Comment [Auto mated = 8799513375) message] The system which generated this result transmit kendal reference range : 10*3/?L. The reference range was not used to interpret this result as normal/abnormal . GRAN MAT (NEUT) % 92.7 % (test code = 770-8) IMM GRAN % (test code 1.10 % = 3939848716) LYMPH % (test code = 1.2 % 736-9) MONO % (test code = 4.8 % 5905-5) EOS % (test code = 0.0 % 713-8) BASO % (test code = 0.2 % 706-2) GRAN MAT x10^3(ANC) 21.85 10*3/uL 1.99-6.95 H (test code = 7813108573) IMM GRAN x10^3 (test 0.27 10*3/uL 0.00-0.06 H code = 5635901447) LYMPH x10^3 (test code 0.28 10*3/uL 1.09-3.23 L = 731-0) MONO x10^3 (test code 1.13 10*3/uL 0.36-1.02 H = 742-7) EOS x10^3 (test code = <0.03 0.06-0.53 L 711-2) BASO x10^3 (test code 0.05 10*3/uL 0.01-0.09 = 704-7) Lab Interpretation Abnormal (test code = 68490-1) [facility] CenterXR CHEST 1 [id number] 16:55:00 Moderate multifocal pneumonia findings, apparently Covid [...] appear normalIMPRESSIONModerate multifocal pneumonia findings, apparently Covid 19.[facility] CenterHepatic Function Panel (ALB, T.PRO, BILI T, BU/BC, ALT, AST, ALK PHOS)2020-04-20 16:54:00 Test Item Value Reference Range Interpretation Comments TOTAL BILI (test code = 3310354365) 1.2 mg/dL 0.1-1.1 H BILI UNCON (test code = 5344987600) 0.6 mg/dL 0.1-1.1 BILI CONJ (test code = 0470783515) 0.0 mg/dL 0.0-0.3 T PROTEIN (test code = 6389577045) 7.8 g/dL 6.3-8.2 ALBUMIN (test code = 8995957218) 4.4 g/dL 3.5-5.0 ALK PHOS (test code = 8594055300) 132 U/L 34-122 H ALTv (test code = 1742-6) 98 U/L 5-50 H AST(SGOT) (test code = 8263799630) 59 U/L 13-40 H Lab Interpretation (test code = Abnormal 21991-5) [facility] CenterMaria A [id number] 16:49:00 Test Item Value Reference Range Interpretation Comments TROPONIN I (test 0.001 ng/mL See_Comment [Automated code = 7508873474) message] The system which generated this result [...] ? Lab Interpretation Normal (test code = 70738-4) [facility] CenterN-TERMINAL [id number] 16:46:00 Test Item Value Reference Range Interpretation Comments NT-proBNP (test code 91 pg/mL See_Comment [Autom ated = 4303635605) message] The system which generated this result transmitted reference range : <=125. The reference range was not used to interpret this result as normal/abnormal . RUDI (test code = RUDI) Biotin has been reported to cause a negative bias, interpret results relative to patient's use of biotin. Lab Interpretation Normal (test code = 18502-9) [facility] CenteraPTT2021-03-01 16:42:00 Test Item Value Reference Range Interpretation Comments APTT Patient (test See_Comment [Automat ed code = 3173-2) message] The system which generated this result transmitted reference range : 23 - 38 Seconds . The reference range was not used to interpr et this result as normal/abnormal . RUDI (test code = RUDI) The [facility] patient population mean normal value for aPTT is 30 seconds. Lab Interpretation Normal (test code = 24212-3) [facility] CenterProthrombin Time (PT) / [id number] 16:40:00 Test Item Value Reference Range Interpretation [...] tions. Lab Interpretation (test Normal code = 63602-9) [facility] CenterBasi Metabolic Panel (NA, K, CL, CO2, GLUCOSE, BUN, CREATININE, CA)2020-04-20 16:37:00 Test Item Value Reference Range Interpretation Comments NA (test code = 136 mmol/L 135-145 5057487016) K (test code = 4.0 mmol/L 3.5-5.0 [id number]) CL (test code = 99 mmol/L 98-108 2773256024) CO2 TOTAL (test code = 25 mmol/L 23-31 7867609118) AGAP (test code = 2-16 2502439823) BUN (test code = 22 mg/dL 7-23 8669223063) GLUCOSE (test code = 155 mg/dL 70-110 H [id number]) CREATININE (test code = 0.82 mg/dL 0.60-1.25 9245814799) CALCIUM (test code = 9.0 mg/dL 8.6-10.6 9060067412) eGFR Calculation mL/min/1.73m2 (Non-) (test code = 8231858879) eGFR Calculation mL/min/1.73m2 () (test code = 3826341604) RUDI (test code = RUDI) Association of [...] tests). Lab Interpretation Abnormal (test code = 44728-1) [facility]2020-04-20 16:37:00 Test Item Value Reference Range Interpretation Comments SARS-CoV-2 Rapid ID NOW Positive Not Detected A (test code = 30955-4) RUDI (test code = RUDI) ID NOW COVID-19 Assay is an isothermal nucleic acid amplification test intended for the qualitative detection of nucleic acid from SARS-CoV-2 viral RNA in nasopharyngeal (OCCUPATIONAL THERAPY ASSISTANT) specimens. It is used under Emergency Use [...] indicated. Lab Interpretation Abnormal (test code = 59721-3) [facility]
[2021-06-07] MEDS ORDERED: IPRATROPIUM BROM 0.5MG/2.5ML ONE (02:59)
[2021-06-07] MEDS ORDERED: METHYLPREDNISOLONE 125 MG INJ ONE (02:59)
[2021-06-07] MEDS ORDERED: LEVALBUTEROL 1.25 MG/3 ML NEB ONE (02:59)
[2021-06-07] MEDS ORDERED: MAGNESIUM SULFATE 1 gm IVPB 1 GM/100 ML BAG IV ONE (03:00)
--- NOTE | 2021-06-07 04:59 | ER ---
Nurse's Notes [facility] Name: Qamar Mayorga Age: 41 yrs Sex: Male : 1980 Arrival Date: 06/07/2021 Time: 02:32 Bed 7 Private MD: Diagnosis: Unspecified asthma with (acute) exacerbation Presentation: 06/07 02:40 Chief complaint: Patient states: "I took some treatments, but I am still feeling out of tw5 breath.". Coronavirus screen: Vaccine status: Patient reports being unvaccinated. Ebola Screen: Patient negative for fever greater than or equal to 101.5 degrees Fahrenheit, and additional compatible Ebola Virus Disease symptoms Patient denies exposure to infectious person. Patient denies travel to an Ebola-affected area in the 21 days before illness onset. Initial Sepsis Screen: Does the patient meet any 2 criteria? No. Patient's initial sepsis screen is negative. Does the patient have a suspected source of infection? No. Patient's initial sepsis screen is negative. Risk Assessment: Do you want to hurt yourself or someone else? Patient reports no desire to harm self or others. Onset of symptoms was June 06, 2021 at 11:00. 02:40 Method Of Arrival: Ambulatory tw5 02:40 Acuity: JAMSHID 3 tw5 Triage Assessment: 02:41 General: Appears in no apparent distress. Behavior is calm, cooperative, appropriate tw5 for age. Pain: Denies pain. Historical: - Allergies: 02:41 Dilantin; tw5 - Home Meds: 02:41 albuterol sulfate 0.63 mg/3 mL In[facility] [Active]; Flonase 50 mcg/actuation Nasal spsn tw5 1 spray 2 times per day [Active]; Zyrtec 10 mg Oral chew 1 tab once daily [Active]; - PMHx: 02:41 Asthma; hyperthyroidism; Pneumonia; seasonal allergies; tw5 - PSHx: 02:41 Thyroidectomy; tw5 - Immunization history:: Flu vaccine is not up to date. - Social history:: Smoking status: Patient denies any tobacco usage or history of. - Family history:: not pertinent. - Hospitalizations: : No recent hospitalization is reported. Screenin:42 Abuse screen: Denies threats or abuse. Denies injuries from another. Nutritional tw5 screening: No deficits noted. Tuberculosis screening: No symptoms or risk factors identified. Fall Risk None identified. Assessment: 02:59 General: Appears uncomfortable, Behavior is calm, cooperative. Pain: Denies pain. ll3 Neuro: Level of Consciousness is awake, alert, obeys commands, Oriented to person, place, time, situation. Respiratory: Reports cough that is non-productive, since One week Respiratory effort is labored, Respiratory pattern is regular, symmetrical, Breath sounds with wheezes bilaterally. Derm: Skin is pink, warm \\T\\ dry. 04:00 Reassessment: Patient and/or family updated on plan of care and expected duration. Pain ll3 level reassessed. Patient is alert, oriented x 3, equal unlabored respirations, skin warm/dry/pink. Patient states symptoms have improved. 05:21 Reassessment: Patient appears in no apparent distress at this time. Patient is alert, lp1 oriented x 3, equal unlabored respirations, skin warm/dry/pink. Patient states feeling better. Patient states symptoms have improved. Respiratory: Respiratory effort is even. Vital Signs: 02:40 BP 133 / 93; Pulse 74; Resp 22; Temp 97.5; Pulse Ox 96% on R/A; Weight 88.45 kg; Height tw5 5 ft. 9 in. (175.26 cm); Pain 0/10; 03:15 BP 131 / 60; Pulse 68; Resp 17; Pulse Ox 100% ; ll3 04:40 BP 128 / 89; Pulse 75; Resp 18; Pulse Ox 98% on R/A; ll3 05:21 BP 139 / 96; Pulse 80; Resp 20; Pulse Ox 97% on R/A; lp1 02:40 Body Mass Index 28.80 (88.45 kg, 175.26 cm) tw5 ED Course: 02:32 Patient arrived in ED. bp1 02:33 Constantin Magdaleno MD is Attending Physician. rn 02:41 Triage completed. tw5 02:41 Arm band placed on right wrist. tw5 02:52 Babak Luna, PJ is Primary Nurse. ll3 02:59 Patient has correct armband on for positive identification. Bed in low position. Call ll3 light in reach. Side rails up X 1. 02:59 Inserted saline lock: 22 gauge in right antecubital area, using aseptic technique. ll3 03:06 XRAY Chest (1 view) In Process Unspecified. EDMS 05:22 No provider procedures requiring assistance completed. IV discontinued, No lp1 redness/swelling at site. Pressure dressing applied. Administered Medications: 03:02 Drug: SOLU-Medrol (methylPrednisoLONE) 125 mg Route: IVP; Site: right antecubital; ll3 03:08 Drug: Magnesium Sulfate 1 grams Route: IVPB; Infused Over: 1 hrs; Site: right ll3 antecubital; 03:16 Drug: Xopenex (levalbuterol) (3) 1.25 mg Route: Inhalation; ll3 03:16 Drug: AtroVENT (ipratropium) Aerosol 0.5 mg Route: Inhalation; ll3 Outcome: 04:58 Discharge ordered by . rn 05:22 Discharged to home ambulatory. lp1 05:22 Condition: good 05:22 Discharge instructions given to patient, Instructed on discharge instructions, follow up and referral plans. medication usage, Demonstrated understanding of instructions, follow-up care, medications, Prescriptions given X 1. 05:23 Patient left the ED. lp1 Signatures: Dispatcher [employer] EDMS Constantin Magdaleno MD MD rn Pena, Laura, RN RN lp1 Laurie Choi Tiffany tw5 Babak Luna RN RN ll3
--- NOTE | 2021-06-07 04:59 | EDPHYS ---
Physician Documentation [facility] Name: Qamar Mayorga Age: 41 yrs Sex: Male : 1980 Arrival Date: 06/07/2021 Time: 02:32 Bed 7 Private MD: ED Physician Constantin Magdaleno HPI: 06/07 03:11 This 41 yrs old Male presents to ER via Ambulatory with complaints of Asthma rn Exacerbation. 03:11 The patient presents to the emergency department with wheezing, the patient was rn reported to have audible wheezing, non-productive cough, trouble breathing. Onset: The symptoms/episode began/occurred 1 week(s) ago. Modifying factors: The symptoms are alleviated by nothing, the symptoms are aggravated by exertion. Associated signs and symptoms: Pertinent negatives: chest pain, fever. Severity of symptoms: At their worst the symptoms were moderate in the emergency department the symptoms are unchanged. The patient has not experienced similar symptoms in the past. The patient has not recently seen a physician. Pt reports wheezing and sob, non-productive cough, for 1 week. No fever. Does not feel ill/sick. No sick contacts. . Historical: - Allergies: 02:41 Dilantin; tw5 - Home Meds: 02:41 albuterol sulfate 0.63 mg/3 mL In[facility] [Active]; Flonase 50 mcg/actuation Nasal spsn tw5 1 spray 2 times per day [Active]; Zyrtec 10 mg Oral chew 1 tab once daily [Active]; - PMHx: 02:41 Asthma; hyperthyroidism; Pneumonia; seasonal allergies; tw5 - PSHx: 02:41 Thyroidectomy; tw5 - Immunization history:: Flu vaccine is not up to date. - Social history:: Smoking status: Patient denies any tobacco usage or history of. - Family history:: not pertinent. - Hospitalizations: : No recent hospitalization is reported. ROS: 03:11 Constitutional: Negative for fever, chills, and weight loss, Eyes: Negative for injury, rn pain, redness, and discharge, ENT: Negative for injury, pain, and discharge, Neck: Negative for injury, pain, and swelling, Cardiovascular: Negative for chest pain, palpitations, and edema, Respiratory: + sob and cough, + wheezing Abdomen/GI: Negative for abdominal pain, nausea, vomiting, diarrhea, and constipation, Back: Negative for injury and pain, : Negative for injury, bleeding, discharge, and swelling, MS/Extremity: Negative for injury and deformity, Skin: Negative for injury, rash, and discoloration, Neuro: Negative for headache, weakness, numbness, tingling, and seizure. Exam: 03:11 Constitutional: This is a well developed, well nourished patient who is awake, alert, health care attorney to room without assistance. Head/Face: Normocephalic, atraumatic. Eyes: Periorbital areas with no swelling, redness, or edema. ENT: no stridor Cardiovascular: Regular rate and rhythm. No pulse deficits. Respiratory: + mild tachypnea, no retractions, + bilateral wheezing noted. Abdomen/GI: Soft, non-tender Skin: Warm, dry MS/ Extremity: Pulses equal, no cyanosis. Neuro: Awake and alert, GCS 15 Vital Signs: 02:40 BP 133 / 93; Pulse 74; Resp 22; Temp 97.5; Pulse Ox 96% on R/A; Weight 88.45 kg; Height tw5 5 ft. 9 in. (175.26 cm); Pain 0/10; 03:15 BP 131 / 60; Pulse 68; Resp 17; Pulse Ox 100% ; ll3 04:40 BP 128 / 89; Pulse 75; Resp 18; Pulse Ox 98% on R/A; ll3 05:21 BP 139 / 96; Pulse 80; Resp 20; Pulse Ox 97% on R/A; lp1 02:40 Body Mass Index 28.80 (88.45 kg, 175.26 cm) tw5 MDM: 02:33 Patient medically screened. rn 04:58 Differential diagnosis: acute asthma, reactive airway, URI. Antibiotic administration: rn Not indicated. Data reviewed: vital signs, nurses notes, old medical records, radiologic studies, plain films, and as a result, I will discharge patient. Data interpreted: Pulse oximetry: on room air is 98 %. Interpretation: normal. Counseling: I had a detailed discussion with the patient and/or guardian regarding: the historical points, exam findings, and any diagnostic results supporting the discharge/admit diagnosis, radiology results, the need for outpatient follow up, to return to the emergency department if symptoms worsen or persist or if there are any questions or concerns that arise at home. Response to treatment: the patient's symptoms have markedly improved after treatment, and as a result, I will discharge patient. Special discussion: I discussed with the patient/guardian in detail that at this point there is no indication for admission to the hospital. It is understood, however, that if the symptoms persist or worsen the patient needs to return immediately for re-evaluation. 06/07 02:52 Order name: XRAY Chest (1 view) rn 06/07 02:52 Order name: IV Start; Complete Time: 03:15 rn Administered Medications: 03:02 Drug: SOLU-Medrol (methylPrednisoLONE) 125 mg Route: IVP; Site: right antecubital; ll3 03:08 Drug: Magnesium Sulfate 1 grams Route: IVPB; Infused Over: 1 hrs; Site: right ll3 antecubital; 03:16 Drug: Xopenex (levalbuterol) (3) 1.25 mg Route: Inhalation; ll3 03:16 Drug: AtroVENT (ipratropium) Aerosol 0.5 mg Route: Inhalation; ll3 Disposition Summary: 06/07/21 04:58 Discharge Ordered Location: Home rn Problem: an acute exacerbation rn Symptoms: have improved rn Condition: Stable rn Diagnosis - Unspecified asthma with (acute) exacerbation rn Followup: rn - With: Private Physician - When: As needed - Reason: Recheck today's complaints, Re-evaluation by your physician Discharge Instructions: - Discharge Summary Sheet rn - Asthma, Adult rn Forms: - Medication Reconciliation Form rn - Thank You Letter rn - Antibiotic pattern clerk - Prescription Opioid Use rn - School release form ph Prescriptions: - Prednisone 20 mg Oral Tablet - take 3 tablets by ORAL route once daily for 5 days; 15 tablet; Refills: 0, rn Product Selection Permitted Signatures: Dispatcher [employer] EDConstantin Rowley MD MD rn Wood, Tiffany tw5 Babak Luna RN RN ll3 Corrections: (The following items were deleted from the chart) 03:13 03:11 Constitutional: Negative for fever, chills, and weight loss, Eyes: Negative for rn injury, pain, redness, and discharge, Neck: Negative for injury, pain, and swelling, Cardiovascular: Negative for chest pain, palpitations, and edema, Respiratory: + sob and cough, + wheezing Abdomen/GI: Negative for abdominal pain, nausea, vomiting, diarrhea, and constipation, Back: Negative for injury and pain, : Negative for injury, bleeding, discharge, and swelling, MS/Extremity: Negative for injury and deformity, Skin: Negative for injury, rash, and discoloration, Neuro: Negative for headache, weakness, numbness, tingling, and seizure, rn
[2021-06-07 05:37] VITALS: TEMP 97.5
[2021-06-07 05:41] VITALS: BP 139/96; O2SAT 97
--- NOTE | 2021-06-07 15:38 | RAD REPORT ---
EXAM DESCRIPTION: RAD - Chest Single View - 06/07/2021 3:04 am CLINICAL HISTORY: 41 years, Male, DYSPNEA COMPARISON: None FINDINGS: Single view of the chest was obtained portable. No prior films are available for compariso n. The cardiomediastinal silhouette demonstrate to be unremarkable. The heart is not enlarged. The thoracic aorta is unremarkable. The pulmonary vasculature is normal distribution. Minimal linear dens ities lung bases correspond most likely to atelectasis. No significant pleural effusions. No focal ar eas of consolidation. The rest of the soft tissue and bony structures demonstrate to be unremarkabl e. IMPRESSION: Minimal linear densities lung bases correspond most likely to atelectasis. Electronically signed by: Raphael Norris MD 06/07/2021 3:23 AM CDT Due to temporary technical issues with the PACS/Fluency reporting system, reports are being signed by the in house radiologists without review as a courtesy to insure prompt reporting. The interpreting radiologist is fully responsible for the content of the report.
== END 2021-06-07 05:23 | disposition home or self-care (01) ==
LOC: ER 02:29
DX: J45.901 Unspecified asthma with (acute) exacerbation (principal); Z88.8 Allergy status to other drugs, medicaments and biological substances
CPT/HCPCS: 71045; 96375; 96374; 99284; J3475; J2930